=== PATIENT | female | born 1955 | race Caucasian/White ===

== ENCOUNTER 2017-05-24 03:54 | Inpatient (IN) | payer MEDICARE, MEDICAID ==
[~2017-05-24] VITALS: Ht 167.6 cm; Wt 65.8 kg
[~2017-05-24 03:54] MED LIST: ACET325T38 PO; FOLI-88 PO; HCT25T; HYDR50CA; MULT-608; NAPR-243 PO; POTA10CA16; TRM50T PO; VNL37.5T
[2017-05-24] MEDS ORDERED: NS IV 500 ML 500 ML IV ONE (04:08)
--- NOTE | 2017-05-24 04:08 | ED Neurological Problem ---
General Stated Complaint: GRAND MAL SEIZURE Source: family, EMS, [facility] records Exam Limitations: clinical condition History of Present Illness Time seen by provider: 04:01 Initial Comments Patient presents to ER by EMS from this [facility] with a complaint of having a grand mal seizure according to staff. Nothing out of the ordinary they've noticed nor has the daily. They feel that her bowel movements of been regular. Patient is unable to give any history as she is nonverbal in the late stages of dementia. No vomiting or diarrhea. Appetite has been typical for her. Allergies and Home Medications Allergies Coded Allergies: Penicillins (Verified Allergy, Unknown, 07/30/07) Home Medications Acetaminophen 325 Mg Tablet, 650 MG PO DAILY PRN for PAIN, (Reported) Folic Acid/Multivit-Min/Lutein 1 Each Tab.chew, 1 TAB PO BID, (Reported) Constitutional: see HPI (unavailable to obtain a review of systems given her end-stage dementia.) Respiratory: No cough, No short of breath Cardiovascular: No edema, No syncope Gastrointestinal: No constipation, No diarrhea, No vomiting Psychiatric/Neurological: Cognitive Dysfunction, Other (no history of seizures) Past Amltlef-Yeroko-Xtllez Hx Patient Social History Alcohol Use: Denies Use Recreational Drug Use: No Smoking Status: Former Smoker Recent Foreign Travel: No Contact w/Someone Who Travel: No Surgeries HX Surgeries: Yes (Catatact sx) Surgeries: Eye Surgery Respiratory Hx Respiratory Disorders: No Cardiovascular Hx Cardiac Disorders: Yes Neurological Hx Neurological Disorders: Yes (Alzheimer's) Reproductive System Hx Reproductive Disorders: No Genitourinary Hx Genitourinary Disorders: No Gastrointestinal Hx Gastrointestinal Disorders: No Musculoskeletal Hx Musculoskeletal Disorders: No Endocrine Hx Endocrine Disorders: No HEENT HX ENT Disorders: Yes HEENT Disorders: Cataract Loss of Vision: Denies Hearing Impairment: Denies Cancer Hx Cancer: No Psychosocial Hx Psychiatric Problems: No Integumentary HX Skin/Integumentary Disorder: No Blood Transfusions Hx Blood Disorders: No Physical Exam Vital Signs Vital Sign - Last 12Hours 05/24/17 03:55 Temp 97.1 Pulse 62 Resp 18 B/P (MAP) 167/97 Pulse Ox 97 O2 Delivery Room Air Capillary Refill : General Appearance: WD/WN, mild distress HEENT: PERRL/EOMI, pharynx normal (mildly dry) Neck: supple, normal inspection Respiratory: chest non-tender, lungs clear, normal breath sounds Cardiovascular: normal peripheral pulses, regular rate, rhythm Peripheral Pulses: 2+ Dorsalis Pedis (R), 2+ Left Dors-Pedis (L) Gastrointestinal: normal bowel sounds (on the hypoactive side), distended, guarding, tenderness Extremities: non-tender, no pedal edema, normal capillary refill Neurologic/Psychiatric: alert, disoriented x 3 Crainal Nerves: No normal speech (only murmurs at baseline.), PERRL Skin: normal color, warm/dry Focused Exam Lactic Acid Level Laboratory Tests Test 05/24/17 04:00 Lactic Acid Level 2.33 MMOL/L (0.50-2.00) *H Progress/Results/Core Measures Results/Orders Lab Results Laboratory Tests Test 05/24/17 04:00 05/24/17 04:10 Range/Units White Blood Count 6.5 4.3-11.0 10^3/uL Red Blood Count 3.93 L 4.35-5.85 10^6/uL Hemoglobin 12.9 11.5-16.0 G/DL Hematocrit 40 35-52 % Mean Corpuscular Volume 102 H 80-99 FL Mean Corpuscular Hemoglobin 33 25-34 PG Mean Corpuscular Hemoglobin Concent 32 32-36 G/DL Red Cell Distribution Width 12.9 10.0-14.5 % Platelet Count 165 130-400 10^3/uL Mean Platelet Volume 12.6 H 7.4-10.4 FL Neutrophils (%) (Auto) 47 42-75 % Lymphocytes (%) (Auto) 36 12-44 % Monocytes (%) (Auto) 10 0-12 % Eosinophils (%) (Auto) 6 0-10 % Basophils (%) (Auto) 1 0-10 % Neutrophils # (Auto) 3.1 1.8-7.8 X 10^3 Lymphocytes # (Auto) 2.4 1.0-4.0 X 10^3 Monocytes # (Auto) 0.6 0.0-1.0 X 10^3 Eosinophils # (Auto) 0.4 H 0.0-0.3 10^3/uL Basophils # (Auto) 0.1 0.0-0.1 10^3/uL Prothrombin Time 12.5 12.2-14.7 SEC INR Comment 1.0 0.8-1.4 Activated Partial Thromboplast Time 23 L 24-35 SEC Sodium Level 141 135-145 MMOL/L Potassium Level 3.6 3.6-5.0 MMOL/L Chloride Level 109 H 98-107 MMOL/L Carbon Dioxide Level 18 L 21-32 MMOL/L Anion Gap 14 5-14 MMOL/L Blood Urea Nitrogen 15 7-18 MG/DL Creatinine 0.82 0.60-1.30 MG/DL Estimat Glomerular Filtration Rate > 60 BUN/Creatinine Ratio 18 Glucose Level 111 H 70-105 MG/DL Lactic Acid Level 2.33 *H 0.50-2.00 MMOL/L Calcium Level 8.2 L 8.5-10.1 MG/DL Phosphorus Level 3.2 2.3-4.7 MG/DL Magnesium Level 2.1 1.8-2.4 MG/DL Total Bilirubin 0.3 0.1-1.0 MG/DL Aspartate Amino Transf (AST/SGOT) 14 5-34 U/L Alanine Aminotransferase (ALT/SGPT) 14 0-55 U/L Alkaline Phosphatase 97 40-136 U/L Ammonia 31 11-32 UMOL/L Troponin I < 0.30 <0.30 NG/ML C-Reactive Protein High Sensitivity 0.20 0.00-0.50 MG/DL Total Protein 6.5 6.4-8.2 GM/DL Albumin 3.5 3.2-4.5 GM/DL Urine Color YELLOW Urine Clarity CLEAR Urine pH 7 5-9 Urine Specific [place] 1.010 L 1.016-1.022 Urine Protein NEGATIVE NEGATIVE Urine Glucose (UA) NEGATIVE NEGATIVE Urine Ketones NEGATIVE NEGATIVE Urine Nitrite NEGATIVE NEGATIVE Urine Bilirubin NEGATIVE NEGATIVE Urine Urobilinogen NORMAL NORMAL MG/DL Urine Leukocyte Esterase NEGATIVE NEGATIVE Urine RBC (Auto) NEGATIVE NEGATIVE Urine RBC NONE /HPF Urine WBC NONE /HPF Urine Squamous Epithelial Cells RARE /HPF Urine Crystals NONE /LPF Urine Bacteria NEGATIVE /HPF Urine Casts PRESENT /LPF Urine Hyaline Casts RARE /LPF Urine Mucus NEGATIVE /LPF Urine Culture Indicated NO My Orders Orders - VALENT[facility]N [address] Ct Abdomen/Pelvis Wo (05/24/17 04:08) Saline Lock/Iv-Start (05/24/17 04:08) Ammonia (05/24/17 04:08) Cbc With Automated Diff (05/24/17 04:08) Comprehensive Metabolic Panel (05/24/17 04:08) Hs C Reactive Protein (05/24/17 04:08) Lactic Acid Analyzer (05/24/17 04:08) Magnesium (05/24/17 04:08) Troponin I (05/24/17 04:08) Ua Culture If Indicated (05/24/17 04:08) Phosphorus (05/24/17 04:08) Chest 1 View, Ap/Pa Only (05/24/17 04:08) Blood Culture (05/24/17 04:08) Sputum Culture (05/24/17 04:08) Protime With Inr (05/24/17 04:08) Partial Thromboplastin Time (05/24/17 04:08) O2 (05/24/17 04:08) Saline Lock/Iv-Start (05/24/17 04:08) Vital Signs Adult Sepsis Patie Q1HR (05/24/17 04:08) Remove Rings In Anticipation O (05/24/17 04:08) Ns Iv 500 Ml (Sodium Chloride 0.9%) (05/24/17 04:08) Ns Iv 1000 Ml (Sodium Chloride 0.9%) (05/24/17 04:44) Fentanyl Injection (Sublimaze Injection (05/24/17 05:00) Ondansetron Injection (Zofran Injectio (05/24/17 05:00) Vancomycin 1 Gm Iv (1x Dose) (05/24/17 05:30) Metronidazole 500 Mg Iv (1x Do (05/24/17 05:30) Medications Given in ED Current Medications Medications Dose Ordered Sig/Amy Route Start Time Stop Time Status Last Admin Dose Admin Fentanyl Citrate 25 mcg ONCE ONCE IVP 05/24/17 05:00 05/24/17 05:02 DC 05/24/17 05:10 25 MCG Ondansetron HCl 4 mg ONCE ONCE IVP 05/24/17 05:00 05/24/17 05:02 DC 05/24/17 05:11 4 MG Sodium Chloride 500 ml @ 0 mls/hr Q0M ONCE IV 05/24/17 04:08 05/24/17 04:11 DC 05/24/17 04:40 500 MLS/HR Sodium Chloride 1,000 ml @ 0 mls/hr Q0M ONCE IV 05/24/17 04:44 05/24/17 04:46 DC 05/24/17 04:56 1,000 MLS/HR Vital Signs/I&O Vital Sign - Last 12Hours 05/24/17 03:55 Temp 97.1 Pulse 62 Resp 18 B/P (MAP) 167/97 Pulse Ox 97 O2 Delivery Room Air Progress Note : Time: 04:52 Progress Note New-onset of convulsions and a tender guarding mildly distended abdomen. We will obtain sepsis workup to include urine and a CT of the abdomen. Diagnostic Imaging Diagonstic Imaging: Xray Plain Films/CT/US/NM/MRI: chest Comments No acute cardiopulmonary processes. Reviewed: Reviewed by Me Diagonstic Imaging: CT Plain Films/CT/US/NM/MRI: abdomen (pelvis without) Comments Large fecal load within the rectum. You nodular opacities in lung bases may reflect aspiration, possibly chronic. Cholelithiasis. Liver kidney pancreas spleen are unremarkable. No evidence of bowel obstruction or colitis and no free fluid or free air. Reviewed: Reviewed [place] Study, Reviewed by Me Departure Communication Time/Spoke to Admitting Phy: 05:[address] Johnson; discussed IV antibiotic choice and he agrees and asks that I would consult pharmacy in the morning to 8 us an antibiotic choice. He also asked that we consult general surgery in the morning. Follow the lactate. Impression Impression: Primary Impression: Sepsis Qualified Codes: A41.9 - Sepsis, unspecified organism Additional Impressions: Seizures Aspiration pneumonia Qualified Codes: J69.0 - Pneumonitis due to inhalation of food and vomit Cholelithiasis Qualified Codes: K80.20 - Calculus of gallbladder without cholecystitis without obstruction Disposition: ADMITTED INPATIENT Condition: Stable Decision to Admit Reason: Admit from ER (General) Decision to Admit/Date: May 24, 2017 Time/Decision to Admit Time: 05:47 Departure-Patient Inst. Referrals: RHONDA JOHNSON DO (PCP/Family) Primary Care Physician Copy Copies To 1: RHONDA JOHNSON TITUS J May 24, 2017 04:08
[2017-05-24 04:20] LABS: BASOPHILS # (AUTO) 0.1 10^3/uL (0.0-0.1); BASOPHILS % (AUTO) 1 % (0-10); EOSINOPHILS # (AUTO) 0.4 10^3/uL (0.0-0.3); EOSINOPHILS % (AUTO) 6 % (0-10); LYMPHOCYTES # (AUTO) 2.4 X 10^3 (1.0-4.0); LYMPHOCYTES % (AUTO) 36 % (12-44); MEAN CORPUSCULAR HEMOGLOBIN 33 PG (25-34); MEAN CORPUSCULAR HGB CONC 32 G/DL (32-36); MEAN CORPUSCULAR VOLUME 102 FL (80-99); MEAN PLATELET VOLUME 12.6 FL (7.4-10.4); MONOCYTES # (AUTO) 0.6 X 10^3 (0.0-1.0); MONOCYTES % (AUTO) 10 % (0-12); NEUTROPHILS # (AUTO) 3.1 X 10^3 (1.8-7.8); NEUTROPHILS % (AUTO) 47 % (42-75); PLATELET COUNT 165 10^3/uL (130-400); RED BLOOD COUNT 3.93 10^6/uL (4.35-5.85); RED CELL DISTRIBUTION WIDTH 12.9 % (10.0-14.5); WHITE BLOOD COUNT 6.5 10^3/uL (4.3-11.0)
[2017-05-24 04:34] LABS: BILIRUBIN,URINE NEGATIVE (NEGATIVE); KETONES,URINE NEGATIVE (NEGATIVE); LEUKOCYTE ESTERASE ,URINE NEGATIVE (NEGATIVE); NITRITE,URINE NEGATIVE (NEGATIVE); PH,URINE 7 (5-9); PROTEIN,URINE NEGATIVE (NEGATIVE); UROBILINOGEN,URINE NORMAL (NORMAL)
[2017-05-24 04:35] LABS: PROTHROMBIN TIME PATIENT 12.5 SEC (12.2-14.7)
[2017-05-24] MEDS ORDERED: NS IV 1000 ML 1,000 ML IV ONE (04:44)
[2017-05-24 04:46] LABS: ALANINE AMINOTRANSFERASE 14 U/L (0-55); ALBUMIN 3.5 GM/DL (3.2-4.5); AMMONIA 31 UMOL/L (11-32); ANION GAP 14 MMOL/L (5-14); ASPARTATE AMINO TRANSFERASE 14 U/L (5-34); BILIRUBIN,TOTAL 0.3 MG/DL (0.1-1.0); BLOOD UREA NITROGEN 15 MG/DL (7-18); BUN/CREATININE RATIO 18; CALCIUM 8.2 MG/DL (8.5-10.1); CARBON DIOXIDE 18 MMOL/L (21-32); CHLORIDE 109 MMOL/L (98-107); CREATININE SERUM 0.82 MG/DL (0.60-1.30); GFR ESTIMATED > 60; GLUCOSE 111 MG/DL (70-105); MAGNESIUM 2.1 MG/DL (1.8-2.4); PHOSPHORUS 3.2 MG/DL (2.3-4.7); POTASSIUM 3.6 MMOL/L (3.6-5.0); SODIUM 141 MMOL/L (135-145); TOTAL PROTEIN 6.5 GM/DL (6.4-8.2)
[2017-05-24 04:49] LABS: HYALINE CASTS, URINE RARE /LPF; SQUAMOUS EPITHELIAL CELL,UR RARE /HPF
[2017-05-24 04:54] LABS: TROPONIN I < 0.30 NG/ML (<0.30)
[2017-05-24] MEDS ORDERED: ONDANSETRON 4 MG/2 ML (SDV) Z0FRAN IVP ONE ×2 (05:00→06:15)
[2017-05-24] MEDS ORDERED: fentaNYL INJECTION 100 MCG/2 ML AMP IVP ONE (05:00)
[2017-05-24] MEDS ORDERED: VANCOMYCIN INJECTION 1,000 MG in NS (IVPB) 250 ML IV ONE (05:30)
[2017-05-24] MEDS ORDERED: metroNIDAZOLE 500MG/100ML IVPB 100 ML IV ONE (05:30)
[2017-05-24 06:55] VITALS: BP 165/97
--- NOTE | 2017-05-24 07:00 | Diagnostic Imaging Report ---
PROCEDURE: CT abdomen and pelvis without contrast. TECHNIQUE: Multiple contiguous axial images were obtained through the abdomen and pelvis without the use of intravenous contrast. INDICATION: Seizure. Abdomen firm and tender to palpation. COMPARISON: None FINDINGS: Included views of the lung bases show multiple patchy nodular densities bilaterally. Reference area on the right measures approximately 8 mm (image 3, series 2). There is hypodense appearance to the intraluminal contents of the cardiac chambers suggestive of anemia. CT abdomen: Normal appendix is identified. Small bowel loops are nondistended. Large amount of stool is noted within the rectum. Stool ball measures approximately 7.6 x 7.8 cm in axial dimension. There is cholelithiasis. The liver, kidneys, adrenal glands, spleen, and pancreas have an unremarkable noncontrast CT appearance. There is no loculated fluid collection, free fluid, nor free air within the abdomen. No abnormal mesenteric or retroperitoneal adenopathy is seen. Bony structures show no acute abnormalities. CT pelvis: Thomas catheter is present within the urinary bladder. Urinary bladder is decompressed. Again, there is a large amount of stool within the rectum. There is no loculated fluid collection, free fluid, nor free air within the pelvis. No abnormal lymph nodes are seen. Bony structures show no acute abnormalities IMPRESSION: 1. Large amount of stool within the rectum. Please correlate for underlying impaction. 2. Cholelithiasis 3. Multiple nodular opacities within the included portions of the lung bases. Findings could be on the basis of multifocal airspace disease/pneumonia. Soft tissue nodularity cannot be excluded. Dedicated evaluation with CT chest is recommended. 4. I agree with Nedk report. Dictated by: Dictated on workstation # [id number]
[2017-05-24] MEDS ORDERED: ONDANSETRON 4 MG/2 ML (SDV) Z0FRAN IV PRN (07:15)
[2017-05-24] MEDS ORDERED: CATHETER FLUSH 10 ML SYR IV PRN (07:15)
[2017-05-24] MEDS ORDERED: ACETAMINOPHEN 500 MG TAB (TYLENOL) PO PRN (07:15)
--- NOTE | 2017-05-24 07:28 | Diagnostic Imaging Report ---
Portable upright radiograph of the chest. INDICATION: Possible seizure. Dementia. The lungs are hyperinflated. The interstitium is prominent similar to x-ray of 07/26/2015, likely chronic. The heart size is mildly enlarged. No effusion or pneumothorax. Mediastinum and ailyn appear unremarkable. IMPRESSION: COPD. Cardiomegaly without madhuri pulmonary edema. Dictated by: Dictated on workstation # [id number]
[2017-05-24 07:50] VITALS: BP 165/97
[2017-05-24] MEDS: metroNIDAZOLE 500 MG/100 ML IVPB (PRE-MIX) IV SCH ×2 (08:11→20:00)
--- NOTE | 2017-05-24 08:11 | History & Physicial ---
History of Present Illness History of Present Illness Reason for visit/HPI [facility]. Patient had a first time seizure. Patient sent out to the emergency room. Abdomen distended. Serum lactic acid at 2.4. Lower lungs show nodularity. CAT scan shows gallstones. Patient has constipation. Patient unable to give any history due to her Alzheimer's. History from . Previous surgery cataract. Family history mother asthma denies TB, diabetes, heart disease, lung disease, or cancer. Date of Admission May 24, 2017 at 05:45 Time Seen by Provider: 08:05 I consulted on this patient on 05/24/17 08:06 Attending Physician Manjeet Johnson DO Admitting Physician Manjeet Johnson DO Consult Allergies and Home Medications Allergies Coded Allergies: Penicillins (Verified Allergy, Unknown, 07/30/07) Home Medications Acetaminophen 325 Mg Tablet, 650 MG PO DAILY PRN for PAIN, (Reported) Folic Acid/Multivit-Min/Lutein 1 Each Tab.chew, 1 TAB PO BID, (Reported) Past Oxjeybf-Inksrp-Hoidnn Hx Patient Social History Marrital Status: Employed/Student: unemployed Alcohol Use: Denies Use Recreational Drug Use: No Smoking Status: Former Smoker Recent Foreign Travel: No Contact w/other who traveled: No Recent Hopitalizations: No Recent Infectious Disease Expo: No Surgeries HX Surgeries: Yes (Catatact sx) Surgeries: Eye Surgery Respiratory Hx Respiratory Disorders: No Cardiovascular Hx Cardiovascular Disorders: Yes Neurological Hx Neurological Disorders: Yes (Alzheimer's) Neurological Disorders: Dementia Reproductive System Hx Reproductive Disorders: No Genitourinary Hx Genitourinary Disorders: No Gastrointestinal Hx Gastrointestinal Disorders: No Musculoskeletal Hx Musculoskeletal Disorders: No Endocrine Hx Endocrine Disorders: No HEENT HX ENT Disorders: Yes HEENT Disorders: Cataract Loss of Vision: Denies Hearing Impairment: Denies Cancer Hx Cancer: No Psychosocial Hx Psychiatric Problems: No Integumentary HX Skin/Integumentary Disorder: No Blood Transfusions Hx Blood Disorders: No Constitutional: no symptoms reported EENTM: no symptoms reported Respiratory: no symptoms reported, other (abnormal CAT scan) Cardiovascular: no symptoms reported Gastrointestinal: constipation, other (distended) Genitourinary: no symptoms reported Psychiatric/Neurological: Seizure, Other (Alzheimer) Physical Exam Vital Signs Vital Sign - Last 12Hours 05/24/17 03:55 Temp 97.1 Pulse 62 Resp 18 B/P (MAP) 167/97 Pulse Ox 97 O2 Delivery Room Air Capillary Refill : Less Than 3 Seconds General Appearance: No Apparent Distress, WD/WN Eyes: Bilateral Eye Normal Inspection HEENT: TMs Normal, Normal ENT Inspection Neck: Full Range of Motion, Normal Inspection, Non Tender Respiratory: Chest Non Tender, Lungs Clear, Normal Breath Sounds, No Accessory Muscle Use, No Respiratory Distress Cardiovascular: Regular Rate, Rhythm, No Murmur Gastrointestinal: Non Tender, Soft, Other (2 stools this a.m.) Assessment/Plan Assessment and Plan new-onset seizure. Constipation. Pneumonia. Gallstones. Elevated lactic acid. Alzheimer's disease. Problems: MANJEET JOHNSON DO May 24, 2017 08:11
[2017-05-24] MEDS: NS IV 1000 ML 1,000 ML IV SCH ×2 (08:23→22:42)
[2017-05-24] MEDS ORDERED: SERT50TA9 PO ×2 (08:44)
[2017-05-24] MEDS ORDERED: MAGN400O7 PO ×2 (08:44)
[2017-05-24] MEDS ORDERED: BISA10SU58 RC ×2 (08:44)
[2017-05-24] MEDS ORDERED: POTA20LI PO ×2 (08:44)
[2017-05-24] MEDS: LEVOFLOXACIN 750 MG/D5W 150 ML (PRE-MIX) IV SCH ×2 (10:22→12:01)
--- NOTE | 2017-05-24 10:34 | Diagnostic Imaging Report ---
PROCEDURE: US Gallbladder. TECHNIQUE: Multiple real-time grayscale images were obtained over the right upper quadrant in various projections. Indication: Right upper quadrant pain, known cholelithiasis. Comparison: CT of the abdomen, same date. Discussion: Sonographic evaluation of the right upper quadrant was performed. The liver appears normal in echotexture and size. No hepatic mass identified. There is a large 3.4 cm stone within the gallbladder lumen. There is no gallbladder wall thickening or pericholecystic fluid. Common bile duct and pancreas are obscured due to overlying bowel gas. No intrahepatic biliary duct dilatation identified. The right kidney appears normal in echotexture and size without evidence of hydronephrosis or renal mass. The right kidney measures 9.5 cm. There is no ascites or abnormal bowel loops identified. No sonographic Frost sign was reported. Impression: 1. Cholelithiasis. Dictated by: Dictated on workstation # [id number]
[2017-05-24 12:14] VITALS: BP 136/86
[2017-05-24] MEDS ORDERED: NS 100 ML (IVPB) BAG IV ONE (12:15)
[2017-05-24] MEDS ORDERED: IOHEXOL 350 MG/ML 100 ML (OMNIPAQUE 350) VIAL IV ONE (12:15)
[2017-05-24] MEDS ORDERED: DIAZEPAM INJ 10 MG/2 ML (VALIUM) SYR IV NR (12:45)
--- NOTE | 2017-05-24 13:54 | Diagnostic Imaging Report ---
PROCEDURE: CT chest with contrast only. TECHNIQUE: Multiple contiguous axial images were obtained through the chest after administration of intravenous contrast. INDICATION: Abnormal chest x-ray. FINDINGS: There is respiratory motion limiting detail due to patient's inability to follow instructions. There are infiltrates present bilaterally, most prominently in the right upper lobe though present in the lower lobes as well. No definite pulmonary nodules identified. Good opacification of the aorta and pulmonary arteries. No evidence of aortic aneurysm. No mediastinal or hilar adenopathy of pathologic size. No pleural effusions or pericardial effusions. IMPRESSION: Limited CT scan due to motion. There are infiltrates present, most prominent in the right upper lobe. No definite nodules demonstrated. Dictated by: Dictated on workstation # [id number]
--- NOTE | 2017-05-24 14:00 | Diagnostic Imaging Report ---
CLINICAL INDICATION: Patient had a seizure last night. TECHNIQUE: An axial CT scan of the brain was performed without IV contrast. COMPARISON: Head CT without IV contrast dated 07/26/2015. FINDINGS: There is no CT evidence of acute cerebral infarct, intracranial hemorrhage, or gross mass effect. There is interval progression of patchy and confluent low-attenuation white matter changes seen throughout both cerebral hemispheres. There is diffuse brain parenchymal volume loss with the temporal lobes affected the most which has not significantly changed. There is normal mac/white matter distinction. There is no significant midline shift or herniation. There is no evidence of hydrocephalus. The basal cisterns are unremarkable. The skull, extracranial soft tissue, and orbits are unremarkable. There is a small to moderate amount of mucosal thickening in the sphenoid sinus. IMPRESSION: 1. There is no definite CT evidence of interval acute cerebral infarction, intracranial hemorrhage, or mass seen. Given the diffuse low attenuation changes throughout the brain parenchyma which can obscure more subtle findings, if there is clinical concern for acute cerebral infarction, MRI of the brain would better evaluate. 2. There is progression of patchy confluent low-attenuation white matter changes throughout both cerebral hemispheres which is suspected to represent progression of chronic small vessel ischemic disease and leukoaraiosis. 3. Sphenoid sinus disease. Dictated by: Dictated on workstation # [id number]
--- NOTE | 2017-05-24 14:25 | Consultation ---
History of Present Illness History of Present Illness Patient Consulted On(ricarda/time) 05/24/17 14:23 Date Seen by Provider: May 24, 2017 Time Seen by Provider: 14:23 Reason for Visit: gallstone History of Present Illness This lady is a resident at a local jail due to Alzheimer's disease.She developed new onset of seizures this morning and reported abdominal pain. Evaluation has confirmed a large gallstone. CT of the brain is negative for any acute events. In addition, CT of the abdomen shows severe constipation, probably adding to her abdominal pain Allergies and Home Medications Allergies Coded Allergies: Penicillins (Verified Allergy, Unknown, 07/30/07) Home Medications Bisacodyl 10 Mg Supp.rect, 10 MG RC DAILY PRN for CONSTIPATION-4TH LINE, ( Reported) Magnesium Hydroxide 400 Mg/5 Ml Oral.susp, 30 ML PO DAILY PRN for CONSTIPATION- 7TH LINE, (Reported) Potassium Chloride 20 Meq/15 Ml Liquid, 10 MEQ PO DAILY, (Reported) 7.5ML OF 20MEQ/15ML Sertraline HCl 50 Mg Tablet, 50 MG PO HS, (Reported) Past Annmtwb-Jizkog-Uzahbj Hx Patient Social History Alcohol Use: Denies Use Recreational Drug Use: No Smoking Status: Never a Smoker Recent Foreign Travel: No Contact w/Someone Who Travel: No Recent Infectious Disease Expo: No Recent Hopitalizations: No Physical Abuse Screen: No Sexual Abuse: No Seasonal Allergies Seasonal Allergies: No Surgeries HX Surgeries: Yes (Catatact sx) Surgeries: Eye Surgery Respiratory Hx Respiratory Disorders: No Cardiovascular Hx Cardiac Disorders: Yes Neurological Hx Neurological Disorders: Yes (Alzheimer's) Neurological Disorders: Dementia Reproductive System Hx Reproductive Disorders: No Genitourinary Hx Genitourinary Disorders: No Gastrointestinal Hx Gastrointestinal Disorders: No Musculoskeletal Hx Musculoskeletal Disorders: No Endocrine Hx Endocrine Disorders: No HEENT HX ENT Disorders: Yes HEENT Disorders: Cataract Loss of Vision: Denies Hearing Impairment: Denies Cancer Hx Cancer: No Psychosocial Hx Psychiatric Problems: No Integumentary HX Skin/Integumentary Disorder: No Blood Transfusions Hx Blood Disorders: No Family Medical History Family Medial History: Patient reports no known family medical history. Physical Exam-General Problems Physical Exam Vital Signs Vital Sign - Last 12Hours 05/24/17 03:55 Temp 97.1 Pulse 62 Resp 18 B/P (MAP) 167/97 Pulse Ox 97 O2 Delivery Room Air Capillary Refill : Less Than 3 Seconds General Appearance: mild distress HEENT: normal ENT inspection Neck: non-tender Respiratory: lungs clear Cardiovascular: normal peripheral pulses, regular rate, rhythm Gastrointestinal: non tender, soft Assessment/Plan Assessment/Plan Admission Diagnosis/Plan lady with Alzheimer's disease. Admitted with gallstone and new onset of seizure. Evaluation is ongoing regarding seizure activity. With regard to gallstone, I have discussed robotic-assisted cholecystectomy. Provisionally, this is scheduled for Saturday the . Clinical Quality Measures DVT/VTE Risk/Contraindication: Risk Factor Score Per Nursin RFS Level Per Nursing on Admit: 4+=Very High ALYSSA FUENTES MD May 24, 2017 14:25
--- NOTE | 2017-05-24 14:28 | Progress Note-Pre Operative ---
Pre-Operative Progress Note H&P Reviewed The H&P was reviewed, patient examined and no changes noted. Date Seen by Provider: May 24, 2017 Time Seen by Provider: : Date H&P Reviewed: May 24, 2017 Time H&P Reviewed: : Pre-Operative Diagnosis: gallstone ALYSSA FUENTES MD May 24, 2017 14:28
[2017-05-24] MEDS ORDERED: MAGNESIUM CITRATE 300 ML BTL PO NR (14:30)
[2017-05-24 16:35] VITALS: BP 139/85
[2017-05-24] MEDS: ENOXAPARIN 40 MG/0.4 ML (LOVENOX) SYR SC SCH (18:32)
[2017-05-24 19:50] VITALS: BP 126/77
[2017-05-24 20:15] VITALS: BP 135/93
[2017-05-25 00:30] VITALS: BP 141/95
[2017-05-25 04:00] VITALS: BP 149/96
[2017-05-25 06:16] LABS: BASOPHILS % (AUTO) 1 % (0-10); EOSINOPHILS # (AUTO) 0.2 10^3/uL (0.0-0.3); EOSINOPHILS % (AUTO) 2 % (0-10); LYMPHOCYTES # (AUTO) 1.8 X 10^3 (1.0-4.0); LYMPHOCYTES % (AUTO) 27 % (12-44); MEAN CORPUSCULAR HEMOGLOBIN 33 PG (25-34); MEAN CORPUSCULAR HGB CONC 32 G/DL (32-36); MEAN CORPUSCULAR VOLUME 103 FL (80-99); MEAN PLATELET VOLUME 12.1 FL (7.4-10.4); MONOCYTES # (AUTO) 0.6 X 10^3 (0.0-1.0); MONOCYTES % (AUTO) 9 % (0-12); NEUTROPHILS # (AUTO) 4.1 X 10^3 (1.8-7.8); NEUTROPHILS % (AUTO) 62 % (42-75); PLATELET COUNT 166 10^3/uL (130-400); RED BLOOD COUNT 3.83 10^6/uL (4.35-5.85); WHITE BLOOD COUNT 6.7 10^3/uL (4.3-11.0)
[2017-05-25 06:39] LABS: ALANINE AMINOTRANSFERASE 11 U/L (0-55); ALBUMIN 3.3 GM/DL (3.2-4.5); ANION GAP 9 MMOL/L (5-14); ASPARTATE AMINO TRANSFERASE 13 U/L (5-34); BILIRUBIN,TOTAL 0.4 MG/DL (0.1-1.0); BLOOD UREA NITROGEN 12 MG/DL (7-18); BUN/CREATININE RATIO 15; CALCIUM 8.5 MG/DL (8.5-10.1); CARBON DIOXIDE 24 MMOL/L (21-32); CHLORIDE 109 MMOL/L (98-107); GFR ESTIMATED > 60; GLUCOSE 100 MG/DL (70-105); POTASSIUM 3.6 MMOL/L (3.6-5.0); SODIUM 142 MMOL/L (135-145); TOTAL PROTEIN 6.2 GM/DL (6.4-8.2)
[2017-05-25 08:00] VITALS: BP 189/96
[2017-05-25] MEDS: metroNIDAZOLE 500 MG/100 ML IVPB (PRE-MIX) IV SCH ×2 (08:15→21:29)
[2017-05-25] MEDS: LEVOFLOXACIN 750 MG/D5W 150 ML (PRE-MIX) IV SCH (09:41)
--- NOTE | 2017-05-25 10:27 | Progress Note (SOAP) ---
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 SHE HAS DIAGNOSIS OF CHOLECYSTITIS, NAUSEA AND VOMITING. SHE IS DEMENTED AND HER FAMILY ANSWERS QUESTIONS FOR HER TODAY. SHE STARTED VOMITING WHILE I WAS IN THE ROOM WITH HER. HER REPORTS THAT HE FED HER SOME EGGS THIS MORNING. Review of Systems General: Fatigue HEENT: No Head Aches Pulmonary: No Dyspnea, No Cough Cardiovascular: No: Chest Pain Gastrointestinal: Nausea, Vomiting Neurological: Confusion, Weakness Objective Exam Vital Signs Date Time Temp Pulse Resp B/P (MAP) Pulse Ox O2 Delivery O2 Flow Rate FiO2 05/25/17 08:00 98.2 70 16 189/96 95 Room Air 05/25/17 04:00 96.4 89 17 149/96 95 Room Air 05/25/17 00:30 98.4 86 18 141/95 96 Room Air 05/24/17 21:00 Room Air 05/24/17 20:15 99.9 96 20 135/93 95 Room Air 05/24/17 19:15 Room Air 05/24/17 16:35 97.5 86 20 139/85 96 Room Air 05/24/17 12:14 98.7 71 18 136/86 96 Room Air I & O 05/25/17 07:00 Intake Total 510 ml Output Total 2450 ml Balance -1940 ml Capillary Refill : Less Than 3 Seconds General Appearance: WD/WN, Moderate Distress HEENT: PERRL/EOMI Neck: Full Range of Motion, Supple Respiratory: Chest Non Tender, Lungs Clear, Normal Breath Sounds Cardiovascular: Regular Rate, Rhythm Gastrointestinal: abnormal bowel sounds (DECREASED), tenderness Neurologic/Psychiatric: Alert, Disoriented x3 Skin: Rash (ACROSS CHEST AND ABDOMEN AND UPPER ARMS) Results Lab Laboratory Tests 05/25/17 05:50: White Blood Count 6.7, Red Blood Count 3.83L, Hemoglobin 12.6, Hematocrit 40, Mean Corpuscular Volume 103H, Mean Corpuscular Hemoglobin 33, Mean Corpuscular Hemoglobin Concent 32, Red Cell Distribution Width 13.0, Platelet Count 166, Mean Platelet Volume 12.1H, Neutrophils (%) (Auto) 62, Lymphocytes (%) (Auto) 27 , Monocytes (%) (Auto) 9, Eosinophils (%) (Auto) 2, Basophils (%) (Auto) 1, Neutrophils # (Auto) 4.1, Lymphocytes # (Auto) 1.8, Monocytes # (Auto) 0.6, Eosinophils # (Auto) 0.2, Basophils # (Auto) 0.0, Sodium Level 142, Potassium Level 3.6, Chloride Level 109H, Carbon Dioxide Level 24, Anion Gap 9, Blood Urea Nitrogen 12, Creatinine 0.80, Estimat Glomerular Filtration Rate > 60, BUN/ Creatinine Ratio 15, Glucose Level 100, Lactic Acid Level 0.63, Calcium Level 8.5, Total Bilirubin 0.4, Aspartate Amino Transf (AST/SGOT) 13, Alanine Aminotransferase (ALT/SGPT) 11, Alkaline Phosphatase 91, Total Protein 6.2L, Albumin 3.3 Microbiology 05/24/17 Blood Culture - Preliminary, Resulted No growth Assessment/Plan Assessment/Plan Assess & Plan/Chief Complaint PNEUMONIA LACTIC ACIDOSIS SEIZURE CONSTIPATION ACUTE CHOLELITHIASIS ABDOMINAL PAIN DEMENTIA - EARLY ONSET NAUSEA AND EMESIS RASH - ALLERGIC REACTION PNEUMONIA - ON CEFEPIME - SUSPECT HER PNEUMONIA MAY BE MORE ATELECTATIC VERSUS ACTUAL PNEUMONIA - HER IMAGING IS DIFFICULT TO READ DUE TO HER INABILITY TO STAY STILL. LACTIC ACIDOSIS - RESOLVED SEIZURE - DUE TO FEVER CONSTIPATION - - PT HAD BOWEL MOVEMENT. ACUTE CHOLELITHIASIS - PLANNING ON SURGERY SATURDAY - WILL MAKE HER NPO EXCEPT ICE CHIPS DUE TO HER NAUSEA WITH FOOD. DEMENTIA - EARLY ONSET - CONTINUE WITH SUPPORTIVE CARE AND NAMENDA. NAUSEA AND EMESIS - ZOFRAN. RASH - ALLERGIC REACTION - STOP LEVAQUIN - GIVE PEPCID, BENADRYL, STEROID X 24 HOURS. Clinical Quality Measures DVT/VTE Risk/Contraindication: Risk Factor Score Per Nursin RFS Level Per Nursing on Admit: 4+=Very High ABI HALLMAN MD May 25, 2017 10:27
[2017-05-25] MEDS ORDERED: methylPREDNISolone 125 MG (Solu-MEDROL) VIAL IM NR (11:46)
[2017-05-25] MEDS ORDERED: diphenhydrAMINE 50 MG/ML INJ (BENADRYL) IVP NR (11:46)
[2017-05-25] MEDS ORDERED: FAMOTIDINE 20MG/2ML IV (PEPCID) IVP NR (11:47)
[2017-05-25 12:00] VITALS: BP 138/82
[2017-05-25] MEDS: DIAZEPAM INJ 10 MG/2 ML (VALIUM) SYR IV PRN ×2 (13:31→22:16)
[2017-05-25] MEDS: NS IV 1000 ML 1,000 ML IV SCH (13:31)
[2017-05-25] MEDS ORDERED: MAGNESIUM CITRATE 300 ML BTL PO NR (14:30)
[2017-05-25 15:43] VITALS: BP 136/88
[2017-05-25] MEDS: ENOXAPARIN 40 MG/0.4 ML (LOVENOX) SYR SC SCH (18:45)
[2017-05-25] MEDS: methylPREDNISolone 40 MG/ML (Solu-MEDROL) VIAL IV SCH (21:29)
[2017-05-25] MEDS: CEFEPIME INJECTION 2,000 MG in NS (IVPB) 50 ML IV SCH (21:29)
[2017-05-25] MEDS: FAMOTIDINE 20MG/2ML IV (PEPCID) IVP SCH (22:13)
[2017-05-26] VITALS: BP 144/73
[2017-05-26] MEDS: methylPREDNISolone 40 MG/ML (Solu-MEDROL) VIAL IV SCH ×4 (00:29→18:46)
[2017-05-26 08:00] VITALS: BP 141/86
[2017-05-26] MEDS: NS IV 1000 ML 1,000 ML IV SCH ×2 (09:13→17:59)
[2017-05-26] MEDS: metroNIDAZOLE 500 MG/100 ML IVPB (PRE-MIX) IV SCH ×2 (09:14→19:57)
[2017-05-26] MEDS: CEFEPIME INJECTION 2,000 MG in NS (IVPB) 50 ML IV SCH ×2 (10:05→21:10)
[2017-05-26] MEDS: FAMOTIDINE 20MG/2ML IV (PEPCID) IVP SCH ×2 (10:05→21:10)
--- NOTE | 2017-05-26 10:15 | Progress Note (SOAP) ---
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 SHE IS QUITE DEMENTED AND IS UNABLE TO ANSWER QUESTIONS. SHE WAS CRYING AND PULLING UP HER LEGS, HITTING OUT AT HER AND MYSELF. Review of Systems General: No Chills, Fatigue, Malaise HEENT: No Head Aches Pulmonary: No Dyspnea, No Cough Cardiovascular: No: Chest Pain Gastrointestinal: Abdominal Pain Neurological: Confusion, Weakness Objective Exam Vital Signs Date Time Temp Pulse Resp B/P (MAP) Pulse Ox O2 Delivery O2 Flow Rate FiO2 05/26/17 00:00 97.0 65 18 144/73 96 Room Air 05/25/17 19:18 Room Air 05/25/17 15:43 97.8 66 18 136/88 96 Room Air 05/25/17 12:00 97.9 82 18 138/82 96 Room Air 05/25/17 10:56 Room Air 94 I & O 05/26/17 07:00 Intake Total 910 ml Output Total 2100 ml Balance -1190 ml Capillary Refill : Less Than 3 Seconds General Appearance: WD/WN, Mild Distress HEENT: PERRL/EOMI, Pharynx Normal Neck: Full Range of Motion, Supple Respiratory: Chest Non Tender, Lungs Clear, Normal Breath Sounds Cardiovascular: Regular Rate, Rhythm Gastrointestinal: normal bowel sounds, soft Extremity: Normal Capillary Refill, No Pedal Edema Neurologic/Psychiatric: Alert, Disoriented x3 Results Lab Microbiology 05/24/17 Blood Culture - Preliminary, Resulted No growth Assessment/Plan Assessment/Plan Assess & Plan/Chief Complaint PNEUMONIA LACTIC ACIDOSIS SEIZURE CONSTIPATION ACUTE CHOLELITHIASIS ABDOMINAL PAIN DEMENTIA - EARLY ONSET NAUSEA AND EMESIS RASH - ALLERGIC REACTION PNEUMONIA - ON CEFEPIME - SUSPECT HER PNEUMONIA MAY BE MORE ATELECTATIC VERSUS ACTUAL PNEUMONIA - HER IMAGING IS DIFFICULT TO READ DUE TO HER INABILITY TO STAY STILL. LACTIC ACIDOSIS - RESOLVED SEIZURE - DUE TO FEVER CONSTIPATION - - PT HAD BOWEL MOVEMENT. ACUTE CHOLELITHIASIS - PLANNING ON SURGERY SATURDAY - WILL MAKE HER NPO EXCEPT ICE CHIPS DUE TO HER NAUSEA WITH FOOD. DEMENTIA - EARLY ONSET - CONTINUE WITH SUPPORTIVE CARE AND NAMENDA. NAUSEA AND EMESIS - ZOFRAN. RASH - ALLERGIC REACTION - STOP LEVAQUIN - GIVE PEPCID, BENADRYL, STEROID X 24 HOURS. Clinical Quality Measures DVT/VTE Risk/Contraindication: Risk Factor Score Per Nursin RFS Level Per Nursing on Admit: 4+=Very High ABI HALLMAN MD May 26, 2017 10:15
[2017-05-26] MEDS: DIAZEPAM INJ 10 MG/2 ML (VALIUM) SYR IV PRN (11:22)
[2017-05-26] MEDS: fentaNYL INJECTION 100 MCG/2 ML AMP IVP PRN ×4 (13:22→23:16)
[2017-05-26 16:40] VITALS: BP 165/88
[2017-05-26] MEDS: ENOXAPARIN 40 MG/0.4 ML (LOVENOX) SYR SC SCH (18:46)
[2017-05-27] VITALS: BP 129/72
[2017-05-27 04:00] VITALS: BP 131/62
[2017-05-27 05:21] LABS: ALANINE AMINOTRANSFERASE 15 U/L (0-55); ALBUMIN 3.3 GM/DL (3.2-4.5); ANION GAP 9 MMOL/L (5-14); ASPARTATE AMINO TRANSFERASE 19 U/L (5-34); BILIRUBIN,TOTAL 0.4 MG/DL (0.1-1.0); BLOOD UREA NITROGEN 21 MG/DL (7-18); BUN/CREATININE RATIO 27; CALCIUM 8.5 MG/DL (8.5-10.1); CARBON DIOXIDE 20 MMOL/L (21-32); CHLORIDE 111 MMOL/L (98-107); CREATININE SERUM 0.79 MG/DL (0.60-1.30); GFR ESTIMATED > 60; GLUCOSE 139 MG/DL (70-105); POTASSIUM 3.6 MMOL/L (3.6-5.0); SODIUM 140 MMOL/L (135-145); TOTAL PROTEIN 6.1 GM/DL (6.4-8.2)
[2017-05-27 05:35] LABS: RED BLOOD COUNT 3.79 10^6/uL (4.35-5.85); RED CELL DISTRIBUTION WIDTH 13.1 % (10.0-14.5); WHITE BLOOD COUNT 15.1 10^3/uL (4.3-11.0)
[2017-05-27] MEDS: fentaNYL INJECTION 100 MCG/2 ML AMP IVP PRN ×2 (05:36→11:18)
--- NOTE | 2017-05-27 07:33 | Progress Note (SOAP) ---
Subjective Time Seen by Provider: 07:23 Subjective/Events-last exam dementia. Cholelithiasis. According to the patient is doing okay this morning. Gallbladder surgery at 1 p.m. today. Aspiration pneumonia. Seizure Objective Exam Vital Signs Date Time Temp Pulse Resp B/P (MAP) Pulse Ox O2 Delivery O2 Flow Rate FiO2 05/27/17 04:00 97.1 56 18 131/62 95 Room Air 05/27/17 00:00 97.8 60 20 129/72 96 Room Air 05/26/17 19:16 Room Air 05/26/17 16:40 99.3 95 22 165/88 95 Room Air 05/26/17 08:00 99.1 80 20 141/86 97 Room Air I & O 05/27/17 07:00 Intake Total 1020 ml Output Total 800 ml Balance 220 ml Capillary Refill : Less Than 3 Seconds General Appearance: No Apparent Distress, WD/WN HEENT: Normal ENT Inspection Neck: Full Range of Motion, Normal Inspection Respiratory: Chest Non Tender, Lungs Clear, Normal Breath Sounds, No Accessory Muscle Use, No Respiratory Distress Cardiovascular: Regular Rate, Rhythm, No Murmur Gastrointestinal: non tender, soft Results Lab Laboratory Tests 05/27/17 04:00: White Blood Count 15.1H, Red Blood Count 3.79L, Hemoglobin 12.6, Hematocrit 39, Mean Corpuscular Volume 103H, Mean Corpuscular Hemoglobin 33, Mean Corpuscular Hemoglobin Concent 32, Red Cell Distribution Width 13.1, Platelet Count 204, Mean Platelet Volume 13.0H, Sodium Level 140, Potassium Level 3.6, Chloride Level 111H, Carbon Dioxide Level 20L, Anion Gap 9, Blood Urea Nitrogen 21H, Creatinine 0.79, Estimat Glomerular Filtration Rate > 60, BUN/Creatinine Ratio 27, Glucose Level 139H, Calcium Level 8.5, Total Bilirubin 0.4, Aspartate Amino Transf (AST/SGOT) 19, Alanine Aminotransferase (ALT/SGPT) 15, Alkaline Phosphatase 79, Total Protein 6.1L, Albumin 3.3 Microbiology 05/24/17 Blood Culture - Preliminary, Resulted No growth Assessment/Plan Assessment/Plan Assess & Plan/Chief Complaint seizure. Gallstones. Dementia. Leukocytosis. Patient to have gallbladder surgery at 1 p.m. Pneumonia. Patient unable to give any history Clinical Quality Measures DVT/VTE Risk/Contraindication: Risk Factor Score Per Nursin RFS Level Per Nursing on Admit: 4+=Very High RHONDA JOHNSON DO May 27, 2017 07:33
[2017-05-27 08:00] VITALS: BP 127/75
[2017-05-27] MEDS: metroNIDAZOLE 500 MG/100 ML IVPB (PRE-MIX) IV SCH ×2 (08:24→21:56)
[2017-05-27] MEDS: FAMOTIDINE 20MG/2ML IV (PEPCID) IVP SCH ×2 (08:24→21:56)
[2017-05-27] MEDS: CEFEPIME INJECTION 2,000 MG in NS (IVPB) 50 ML IV SCH ×2 (08:24→21:56)
--- NOTE | 2017-05-27 09:21 | Physician Query Clarification ---
PQ-Conflicting Diagnosis Admission/Discharge Admission Date: May 24, 2017 at 05:45 Discharge Date: The medical record reflects the following clinical scenario: History/Risk Factors: Cholelithiasis Aspiration Pneumonia Clinical Findings: Lactic acid-2.33, Temp 97.1, Pulse 62, Resp 18, BP 167/97, WBC 6.5, Blood culture-No growth Treatment: IV Vancomycin HCI, IV Levaquin, IV Cefepime HCI. Question: Do you agree with the impression of Sepsis per Dr. Giles, ED physician? Please document a response below. PHYSICIAN RESPONSE Do you agree w/Consulting Dx?: No In responding to this query, please exercise your independent professional judgment. The purpose of this communication is to more accurately reflect the complexity of your patients condition. The fact that a question is asked does not imply that any particular answer is desired or expected. Thank you for your timely response to this clarification. Requestors name: Mervat Enrique [facility] Phone # ext [phone] or [phone] THIS PHYSICIAN QUERY FORM IS A PERMANENT PART OF THE MEDICAL RECORD MERVAT ENRIQUE May 27, 2017 09:21 RHONDA JOHNSON DO May 27, 2017 18:38
[2017-05-27] MEDS ORDERED: BUP/EPI 0.25% 1:200,000 (MARCAINE) 10 ML VIAL IJ ONE ×2 (10:01→14:12)
[2017-05-27] MEDS ORDERED: ROCURONIUM 50 MG/5 ML (ZEMURON) VIAL IV ONE (11:59)
[2017-05-27] MEDS ORDERED: ONDANSETRON 4 MG/2 ML (SDV) Z0FRAN ONE (11:59)
[2017-05-27] MEDS ORDERED: LIDOCAINE PF 2% 5 ML (XYLOCAINE) VIAL ONE (11:59)
[2017-05-27] MEDS ORDERED: DEXAMETHASONE PF 10 MG/ML (DECADRON) VIAL ONE (11:59)
[2017-05-27] MEDS ORDERED: fentaNYL INJECTION 100 MCG/2 ML AMP ONE (11:59)
[2017-05-27] MEDS ORDERED: proPOfol 200 MG/20 ML (DIPRIVAN) VIAL IV ONE ×2 (11:59→14:16)
[2017-05-27] MEDS ORDERED: MIDAZOLAM 2 MG/2 ML (VERSED) VIAL ONE (12:00)
[2017-05-27] MEDS ORDERED: LACTATED RINGERS 1,000 ML IV ONE (12:25)
[2017-05-27] MEDS ORDERED: SEVOFLURANE (ULTANE) 15 ML INHAL SOLN ONE ×5 (12:25→14:16)
[2017-05-27] MEDS ORDERED: ceFAZolin 1,000 MG (ANCEF) VIAL ONE (12:49)
[2017-05-27] MEDS ORDERED: LACTATED RINGERS 1,000 ML IV PRN (12:53)
[2017-05-27] MEDS ORDERED: ceFAZolin 1,000 MG (ANCEF) VIAL IV ONE (13:00)
[2017-05-27] MEDS ORDERED: metroNIDAZOLE 500MG/100ML IVPB 100 ML IV NR (13:00)
[2017-05-27] MEDS ORDERED: MEPERIDINE (DEMEROL) INJ 50 MG/ML IVP PRN (14:15)
[2017-05-27] MEDS ORDERED: ONDANSETRON 4 MG/2 ML (SDV) Z0FRAN IVP PRN ×2 (14:15→14:45)
--- NOTE | 2017-05-27 14:33 | Operative Report ---
Operative Report Date of Procedure/Surgery May 27, 2017 Surgeon (s) ALYSSA FUENTES MD Director Of Field Sales (s): not applicable Post-Operative Diagnosis same Procedure Performed robotic-assisted cholecystectomy Description of Procedure Anesthesia Type: General Estimated blood loss (mL): minimal Specimen(s) collected/removed gallbladder Description of the Procedure Indication for procedure: This lady was found to have a large gallstone with symptoms.She was therefore offered cholecystectomy using invasive technique with robotic assistance. Informed consent was obtained after the procedure in detail. Description of the procedure: She was placed supine on the operative table and general anesthesia induced using an endotracheal tube. A gram of Ancef and 500 mg of Flagyl were administered intravenously as prophylaxis against wound infection. Sequential compression devices were placed around her legs, to minimize the risk of venous thrombosis. Abdomen was prepared and draped in the usual sterile manner. A supraumbilical incision was made and pneumoperitoneum established using a Veress needle. Intra -abdominal pressure was maintained at 15 mm using carbon dioxide insufflation. A 12 mm trocar was placed and anatomy visualized using the high definition, 3- dimensional laparoscope associated with robotic system. Under direct view, I placed an 8 mm cannula over each side of the abdomen, followed by a 5 mm trocar over the left subcostal region. The patient was then turned into reverse Trendelenburg position and the robotic system docked in place. Lesser omentum was adherent to the body of the gallbladder and taken down using hook cautery. The fundus of the gallbladder was then retracted cephalad and the infundibulum grasped with Cardiere forceps. Peritoneum overlying Calot's triangle was incised using hook cautery, delineating cystic duct and artery. Both were divided between locking clips. Cholecystectomy was then completed using hook cautery. The gallbladder was then placed in an Endo Catch bag and removed via the supraumbilical trocar site. The fascia over this incision was closed using #1 Vicryl using the Mendez Castro device. Skin incisions were closed using 4- 0 Vicryl, in a subcuticular fashion. She tolerated the procedure well, was extubated in the operative room and taken to the recovery room in a stable condition Findings of the Procedure see operative report Allergies and Home Medications Allergies Coded Allergies: Penicillins (Verified Allergy, Unknown, 07/30/07) Home Medications Bisacodyl 10 Mg Supp.rect, 10 MG RC DAILY PRN for CONSTIPATION-4TH LINE, ( Reported) Magnesium Hydroxide 400 Mg/5 Ml Oral.susp, 30 ML PO DAILY PRN for CONSTIPATION- 7TH LINE, (Reported) Potassium Chloride 20 Meq/15 Ml Liquid, 10 MEQ PO DAILY, (Reported) 7.5ML OF 20MEQ/15ML Sertraline HCl 50 Mg Tablet, 50 MG PO HS, (Reported) ALYSSA FUENTES MD May 27, 2017 2:33 pm
[2017-05-27] MEDS ORDERED: TRAM50TA2 PO ×2 (14:43)
--- NOTE | 2017-05-27 14:44 | Discharge Inst-Simple/Standard ---
Discharge Inst-Standard Discharge Medications New, Converted or Re-Newed RX: RX on Chart Patient Instructions/Follow Up Plan of Care/Instructions/FU: incentive spirometry. Dressings off in 48 hours. Follow-up in 3 weeks Activity as Tolerated: Yes Discharge Diet: No Restrictions ALYSSA FUENTES MD May 27, 2017 2:44 pm
[2017-05-27] MEDS ORDERED: fentaNYL INJECTION 100 MCG/2 ML AMP IVP PRN (14:45)
[2017-05-27] MEDS ORDERED: HYDROcodone/APAP 5 MG/325 MG (LORTAB) TAB PO PRN (14:45)
[2017-05-27] MEDS: morphine INJ 10 MG/ML 1ML (SYR OR VIAL) IVP PRN ×2 (14:50→14:57)
[2017-05-27 16:10] VITALS: BP 142/77
[2017-05-27] MEDS: NS IV 1000 ML 1,000 ML IV SCH (17:31)
[2017-05-27] MEDS: ENOXAPARIN 40 MG/0.4 ML (LOVENOX) SYR SC SCH (17:32)
[2017-05-27 20:24] VITALS: BP 125/65
[2017-05-27 23:45] VITALS: BP 140/73
[2017-05-28 04:04] LABS: RED BLOOD COUNT 3.81 10^6/uL (4.35-5.85); WHITE BLOOD COUNT 16.4 10^3/uL (4.3-11.0)
[2017-05-28 04:05] LABS: BASOPHILS % (AUTO) 0 % (0-10); EOSINOPHILS % (AUTO) 0 % (0-10); LYMPHOCYTES # (AUTO) 0.7 X 10^3 (1.0-4.0); LYMPHOCYTES % (AUTO) 5 % (12-44); MEAN CORPUSCULAR HEMOGLOBIN 33 PG (25-34); MEAN CORPUSCULAR HGB CONC 33 G/DL (32-36); MEAN CORPUSCULAR VOLUME 102 FL (80-99); MEAN PLATELET VOLUME 12.2 FL (7.4-10.4); MONOCYTES # (AUTO) 1.2 X 10^3 (0.0-1.0); MONOCYTES % (AUTO) 8 % (0-12); NEUTROPHILS # (AUTO) 14.4 X 10^3 (1.8-7.8); NEUTROPHILS % (AUTO) 88 % (42-75); PLATELET COUNT 186 10^3/uL (130-400); RED CELL DISTRIBUTION WIDTH 13.4 % (10.0-14.5)
[2017-05-28 04:33] LABS: ANION GAP 12 MMOL/L (5-14); BLOOD UREA NITROGEN 18 MG/DL (7-18); BUN/CREATININE RATIO 22; CALCIUM 8.2 MG/DL (8.5-10.1); CARBON DIOXIDE 19 MMOL/L (21-32); CHLORIDE 112 MMOL/L (98-107); CREATININE SERUM 0.81 MG/DL (0.60-1.30); GFR ESTIMATED > 60; GLUCOSE 126 MG/DL (70-105); POTASSIUM 3.8 MMOL/L (3.6-5.0); SODIUM 143 MMOL/L (135-145)
[2017-05-28 05:10] LABS: BAND NEUTROPHILS 0 %; BASOPHILS % (MANUAL) 0 %; EOSINOPHILS % (MANUAL) 0 %; LYMPHOCYTES % (MANUAL) 4 %; NEUTROPHILS % (MANUAL) 91 %
--- NOTE | 2017-05-28 06:11 | Progress Note-Standard ---
Standard Progress Note Progress Notes/Assess & Plan Date Seen by Provider: May 28, 2017 Time Seen by Provider: 05:48 Progress/Assessment & Plan Uneventful postoperative night. Adequate pain control. Minimal postoperative tenderness. Could be discharged back to the alf Final Diagnosis Gallstone ALYSSA FUENTES MD May 28, 2017 6:11 am
--- NOTE | 2017-05-28 07:35 | Progress Note (SOAP) ---
Subjective Time Seen by Provider: 07:30 Subjective/Events-last exam patient doing well today after surgery done yesterday. Gallstones. Seizure. Alzheimer's. states is doing good. Patient is nonverbal Objective Exam Vital Signs Date Time Temp Pulse Resp B/P (MAP) Pulse Ox O2 Delivery O2 Flow Rate FiO2 05/28/17 02:10 97 Nasal Cannula 2.00 05/27/17 23:45 97.8 48 18 140/73 95 Room Air 05/27/17 23:45 97 Room Air 05/27/17 20:24 97.1 50 8 125/65 93 Room Air 05/27/17 20:00 Nasal Cannula 2.00 05/27/17 19:35 92 Room Air 05/27/17 18:07 96.2 05/27/17 16:10 96.2 57 16 142/77 94 Room Air 05/27/17 14:57 97.4 05/27/17 11:48 96.6 05/27/17 09:37 96 Room Air 05/27/17 09:37 96 05/27/17 08:00 96.6 59 18 127/75 100 Room Air I & O 05/28/17 07:00 Intake Total 0 ml Output Total 825 ml Balance -825 ml Capillary Refill : Less Than 3 Seconds General Appearance: No Apparent Distress, WD/WN HEENT: Normal ENT Inspection Neck: Full Range of Motion, Normal Inspection Respiratory: Chest Non Tender, Lungs Clear, Normal Breath Sounds, No Accessory Muscle Use, No Respiratory Distress Cardiovascular: Regular Rate, Rhythm, No Murmur Gastrointestinal: soft Results Lab Laboratory Tests 05/28/17 03:42 Laboratory Tests 05/28/17 03:42: White Blood Count 16.4H, Red Blood Count 3.81L, Hemoglobin 12.7, Hematocrit 39, Mean Corpuscular Volume 102H, Mean Corpuscular Hemoglobin 33, Mean Corpuscular Hemoglobin Concent 33, Red Cell Distribution Width 13.4, Platelet Count 186, Mean Platelet Volume 12.2H, Neutrophils (%) (Auto) 88H, Lymphocytes (%) (Auto) 5L, Monocytes (%) (Auto) 8, Eosinophils (%) (Auto) 0, Basophils (%) (Auto) 0, Neutrophils # (Auto) 14.4H, Lymphocytes # (Auto) 0.7L, Monocytes # (Auto) 1.2H, Eosinophils # (Auto) 0.0, Basophils # (Auto) 0.0, Neutrophils % (Manual) 91, Lymphocytes % (Manual) 4, Monocytes % (Manual) 5, Eosinophils % (Manual) 0, Basophils % (Manual) 0, Band Neutrophils 0, Blood Morphology Comment NORMAL, Sodium Level 143, Potassium Level 3.8, Chloride Level 112H, Carbon Dioxide Level 19L, Anion Gap 12, Blood Urea Nitrogen 18, Creatinine 0.81, Estimat Glomerular Filtration Rate > 60, BUN/Creatinine Ratio 22, Glucose Level 126H, Calcium Level 8.2L Microbiology 05/24/17 Blood Culture - Preliminary, Resulted No growth Assessment/Plan Assessment/Plan Assess & Plan/Chief Complaint seizure. Gallstones. Dementia. Leukocytosis. Patient to have gallbladder surgery at 1 p.m. Pneumonia. Patient unable to give any history. . 05/28/17. Seizure. Gallstones. Dementia. Leukocytosis. Pneumonia. Patient did well after surgery. Okay to discharge today. 2 office in one week Clinical Quality Measures DVT/VTE Risk/Contraindication: Risk Factor Score Per Nursin RFS Level Per Nursing on Admit: 4+=Very High RHONDA JOHNSON DO May 28, 2017 07:35
[2017-05-28 07:55] VITALS: BP 132/70
[2017-05-28] MEDS: CEFEPIME INJECTION 2,000 MG in NS (IVPB) 50 ML IV SCH (08:16)
[2017-05-28] MEDS: metroNIDAZOLE 500 MG/100 ML IVPB (PRE-MIX) IV SCH (08:16)
--- NOTE | 2017-05-28 09:18 | DISCHARGE SUMMARY ---
DATE OF ADMISSION: 05/24/2017. DATE OF DISCHARGE: 05/28/2017. DIAGNOSIS: 1. Symptomatic gallstones. 2. New onset of seizure. This lady, a resident of a local alf, due to dementia, was brought in with an episode of seizure and abdominal pain. With regard to the former, no definitive etiology was found out and Dr. Pimentel, her primary physician, feels that medical therapy will be withheld at this point. With regard to gallstone, she underwent cholecystectomy and has made a reasonable recovery. She is being discharged back to the alf with instructions to be brought back in 2 weeks for a postoperative follow-up. Job ID: [id number] Dictated Date: 05/28/2017 08:05:17 Riffler Tender Date: 05/28/2017 09:14:07/wil CASH
[2017-05-28] MEDS: FAMOTIDINE 20MG/2ML IV (PEPCID) IVP SCH (09:40)
[2017-05-28] MEDS: NS IV 1000 ML 1,000 ML IV SCH (09:40)
--- NOTE | 2017-05-28 11:41 | Diagnostic Imaging Report ---
INDICATION: Followup pneumonia. COMPARISON: Previous CT scan from 05/24/2017. FINDINGS: Bilateral lower lung infiltrates are again noted and do not appear significantly changed. The heart remains mildly enlarged. No evidence of pulmonary edema. No pneumothorax or pleural effusion. IMPRESSION: 1. Persistent bilateral infiltrates overlying the lower lungs. 2. Cardiomegaly without changes to suggest pulmonary edema. Dictated by: Dictated on workstation # [id number]
[2017-05-28 13:25] VITALS: BP 132/70
--- OUTSIDE RECORDS SUMMARY | 2017-05-30 04:44 | XMS REPORT | Continuity of Care Document ---
Author Author [facility] Organization [facility] Address Unknown Phone Unavailable Allergies Active Description Code Type Severity Reaction Onset Reported/Identified Relationship to Patient Clinical Status Yes Penicillins [id number] Drug Allergy Unknown N/A 07/30/2007 Medications Problems Date Dx Coded Attending Type Code Diagnosis Diagnosed By 07/27/2015 CIARA GUILLORY MD Ot 331.0 ALZHEIMER'S DISEASE 07/27/2015 CIARA GUILLORY MD Ot 813.44 FX LOW RADIUS W ULNA-CL 07/27/2015 CIARA GUILLORY MD Ot E849.0 ACCIDENT IN HOME 07/27/2015 CIARA GUILLORY MD Ot E888.9 FALL NOS 07/27/2015 CIARA GUILLORY MD Ot V03.82 PROPHYLACTIC VACC AGAINST STREPTOCOCCUS 07/27/2015 CIARA GUILLORY MD Ot V04.81 ND FOR PROPHYLACTIC VACCIN AND INOCULATI 07/27/2015 CIARA GUILLORY MD Ot 331.0 07/27/2015 CIARA GUILLORY MD Ot 813.44 07/27/2015 CIARA GUILLORY MD Ot E849.0 07/27/2015 CIARA GUILLORY MD Ot E888.9 07/27/2015 CIARA GUILLORY MD Ot V03.82 07/27/2015 CIARA GUILLORY MD Ot V04.81 05/24/2017 CIARA GUILLORY MD Ot V76.12 OT SCREEN MAMMO-MALIGN NEOPLASM OF SANDY 05/24/2017 CIARA GUILLORY MD Ot V76.12 OT SCREEN MAMMO-MALIGN NEOPLASM OF SANDY Procedures Results Test Result Range Complete blood count (CBC) with automated white blood cell (WBC) differential - 05/24/17 04:00 Blood leukocytes automated count (number/volume) 6.5 10*3/ uL 4.3-11.0 Blood erythrocytes automated count (number/volume) 3.93 10*6 /uL 4.35-5.85 Venous blood hemoglobin measurement (mass/volume) 12.9 g/dL 11.5-16.0 Blood hematocrit (volume fraction) 40 % 35-52 Automated erythrocyte mean corpuscular volume 102 [foz_us] 80-99 Automated erythrocyte mean corpuscular hemoglobin (mass per erythrocyte) 33 pg 25-34 Automated erythrocyte mean corpuscular hemoglobin concentration measurement ( mass/volume) 32 g/dL 32-36 Automated erythrocyte distribution width ratio 12.9 % 10.0-14.5 Automated blood platelet count (count/volume) 165 10*3/uL 130-400 Automated blood platelet mean volume measurement 12.6 [foz_ us] 7.4-10.4 Automated blood neutrophils/100 leukocytes 47 % 42-75 Automated blood lymphocytes/100 leukocytes 36 % 12-44 Blood monocytes/100 leukocytes 10 % 0-12 Automated blood eosinophils/100 leukocytes 6 % 0-10 Automated blood basophils/100 leukocytes 1 % 0-10 Blood neutrophils automated count (number/volume) 3.1 10*3 1.8-7.8 Blood lymphocytes automated count (number/volume) 2.4 10*3 1.0-4.0 Blood monocytes automated count (number/volume) 0.6 10*3 0.0-1.0 Automated eosinophil count 0.4 10*3/uL 0.0-0.3 Automated blood basophil count (count/volume) 0.1 10*3/uL 0.0-0.1 PT panel in platelet poor plasma by coagulation assay - 05/24/17 04:00 Prothrombin time (PT) in platelet poor plasma by coagulation assay 12.5 s 12.2-14.7 INR in platelet poor plasma or blood by coagulation assay 1.0 0.8-1.4 Activated partial thromboplastin time (aPTT) in platelet poor plasma bycoagulation assay - 05/24/17 04:00 Activated partial thromboplastin time (aPTT) in platelet poor plasma bycoagulation assay 23 s 24-35 Blood lactic acid measurement (moles/volume) - 05/24/17 04:00 Blood lactic acid measurement (moles/volume) 2.33 mmol/L 0.50-2.00 Comprehensive metabolic panel - 05/24/17 04:00 Serum or plasma sodium measurement (moles/volume) 141 mmol/ L 135-145 Serum or plasma potassium measurement (moles/volume) 3.6 mmol/L 3.6-5.0 Serum or plasma chloride measurement (moles/volume) 109 mmol /L 98-107 Carbon dioxide 18 mmol/L 21-32 Serum or plasma anion gap determination (moles/volume) 14 mmol/L 5-14 Serum or plasma urea nitrogen measurement (mass/volume) 15 mg/dL 7-18 Serum or plasma creatinine measurement (mass/volume) 0.82 mg /dL 0.60-1.30 Serum or plasma urea nitrogen/creatinine mass ratio 18 NRG Serum or plasma creatinine measurement with calculation of estimated glomerular filtration rate > NRG Serum or plasma glucose measurement (mass/volume) 111 mg/dL 70-105 Serum or plasma calcium measurement (mass/volume) 8.2 mg/dL 8.5-10.1 Serum or plasma total bilirubin measurement (mass/volume) 0.3 mg/dL 0.1-1.0 Serum or plasma alkaline phosphatase measurement (enzymatic activity/volume) 97 U/L 40-136 Serum or plasma aspartate aminotransferase measurement (enzymatic activity/ volume) 14 U/L 5-34 Serum or plasma alanine aminotransferase measurement (enzymatic activity/volume ) 14 U/L 0-55 Serum or plasma protein measurement (mass/volume) 6.5 g/dL 6.4-8.2 Serum or plasma albumin measurement (mass/volume) 3.5 g/dL 3.2-4.5 Serum or plasma phosphate measurement (mass/volume) - 05/24/17 04:00 Serum or plasma phosphate measurement (mass/volume) 3.2 mg/ dL 2.3-4.7 Magnesium - 05/24/17 04:00 Magnesium 2.1 mg/dL 1.8-2.4 Serum or plasma troponin i.cardiac measurement (mass/volume) - 05/24/17 04:00 Serum or plasma troponin i.cardiac measurement (mass/volume) < ng/mL <0.30 Ammonia - 05/24/17 04:00 Ammonia 31 umol/L 11-32 Serum or plasma C reactive protein measurement (mass/volume) - 05/24/17 04:00 Serum or plasma C reactive protein measurement (mass/volume) 0.20 mg/dL 0.00-0.50 Bacterial blood culture - 05/24/17 04:00 Bacterial blood culture NG NRG Complete urinalysis with reflex to culture - 05/24/17 04:10 Urine color determination YELLOW NRG Urine clarity determination CLEAR NRG Urine pH measurement by test strip 7 5- 9 Specific gravity of urine by test strip 1.010 1.016-1.022 Urine protein assay by test strip, semi-quantitative NEGATIVE NEGATIVE Urine glucose detection by automated test strip NEGATIVE NEGATIVE Erythrocytes detection in urine sediment by light microscopy NEGATIVE NEGATIVE Urine ketones detection by automated test strip NEGATIVE NEGATIVE Urine nitrite detection by test strip NEGATIVE NEGATIVE Urine total bilirubin detection by test strip NEGATIVE NEGATIVE Urine urobilinogen measurement by automated test strip (mass/volume) NORMAL NORMAL Urine leukocyte esterase detection by dipstick NEGATIVE NEGATIVE Automated urine sediment erythrocyte count by microscopy (number/high power field) NONE NRG Automated urine sediment leukocyte count by microscopy (number/high power field ) NONE NRG Bacteria detection in urine sediment by light microscopy NEGATIVE NRG Squamous epithelial cells detection in urine sediment by light microscopy RARE NRG Crystals detection in urine sediment by light microscopy NONE NRG Casts detection in urine sediment by light microscopy PRESENT NRG Mucus detection in urine sediment by light microscopy NEGATIVE NRG Complete urinalysis with reflex to culture NO NRG Hyaline casts detection in urine sediment by light microscopy RARE NRG Bacterial blood culture - 05/24/17 05:07 Bacterial blood culture NG NRG Serum or plasma lactate measurement (moles/volume) - 05/24/17 06:11 Serum or plasma lactate measurement (moles/volume) 1.41 mmol /L 0.50-2.00 Complete blood count (CBC) with automated white blood cell (WBC) differential - 05/25/17 05:50 Blood leukocytes automated count (number/volume) 6.7 10*3/ uL 4.3-11.0 Blood erythrocytes automated count (number/volume) 3.83 10*6 /uL 4.35-5.85 Venous blood hemoglobin measurement (mass/volume) 12.6 g/dL 11.5-16.0 Blood hematocrit (volume fraction) 40 % 35-52 Automated erythrocyte mean corpuscular volume 103 [foz_us] 80-99 Automated erythrocyte mean corpuscular hemoglobin (mass per erythrocyte) 33 pg 25-34 Automated erythrocyte mean corpuscular hemoglobin concentration measurement ( mass/volume) 32 g/dL 32-36 Automated erythrocyte distribution width ratio 13.0 % 10.0-14.5 Automated blood platelet count (count/volume) 166 10*3/uL 130-400 Automated blood platelet mean volume measurement 12.1 [foz_ us] 7.4-10.4 Automated blood neutrophils/100 leukocytes 62 % 42-75 Automated blood lymphocytes/100 leukocytes 27 % 12-44 Blood monocytes/100 leukocytes 9 % 0-12 Automated blood eosinophils/100 leukocytes 2 % 0-10 Automated blood basophils/100 leukocytes 1 % 0-10 Blood neutrophils automated count (number/volume) 4.1 10*3 1.8-7.8 Blood lymphocytes automated count (number/volume) 1.8 10*3 1.0-4.0 Blood monocytes automated count (number/volume) 0.6 10*3 0.0-1.0 Automated eosinophil count 0.2 10*3/uL 0.0-0.3 Automated blood basophil count (count/volume) 0.0 10*3/uL 0.0-0.1 Blood lactic acid measurement (moles/volume) - 05/25/17 05:50 Blood lactic acid measurement (moles/volume) 0.63 mmol/L 0.50-2.00 Comprehensive metabolic panel - 05/25/17 05:50 Serum or plasma sodium measurement (moles/volume) 142 mmol/ L 135-145 Serum or plasma potassium measurement (moles/volume) 3.6 mmol/L 3.6-5.0 Serum or plasma chloride measurement (moles/volume) 109 mmol /L 98-107 Carbon dioxide 24 mmol/L 21-32 Serum or plasma anion gap determination (moles/volume) 9 mmol/L 5-14 Serum or plasma urea nitrogen measurement (mass/volume) 12 mg/dL 7-18 Serum or plasma creatinine measurement (mass/volume) 0.80 mg /dL 0.60-1.30 Serum or plasma urea nitrogen/creatinine mass ratio 15 NRG Serum or plasma creatinine measurement with calculation of estimated glomerular filtration rate > NRG Serum or plasma glucose measurement (mass/volume) 100 mg/dL 70-105 Serum or plasma calcium measurement (mass/volume) 8.5 mg/dL 8.5-10.1 Serum or plasma total bilirubin measurement (mass/volume) 0.4 mg/dL 0.1-1.0 Serum or plasma alkaline phosphatase measurement (enzymatic activity/volume) 91 U/L 40-136 Serum or plasma aspartate aminotransferase measurement (enzymatic activity/ volume) 13 U/L 5-34 Serum or plasma alanine aminotransferase measurement (enzymatic activity/volume ) 11 U/L 0-55 Serum or plasma protein measurement (mass/volume) 6.2 g/dL 6.4-8.2 Serum or plasma albumin measurement (mass/volume) 3.3 g/dL 3.2-4.5 Comprehensive metabolic panel - 05/27/17 04:00 Serum or plasma sodium measurement (moles/volume) 140 mmol/ L 135-145 Serum or plasma potassium measurement (moles/volume) 3.6 mmol/L 3.6-5.0 Serum or plasma chloride measurement (moles/volume) 111 mmol /L 98-107 Carbon dioxide 20 mmol/L 21-32 Serum or plasma anion gap determination (moles/volume) 9 mmol/L 5-14 Serum or plasma urea nitrogen measurement (mass/volume) 21 mg/dL 7-18 Serum or plasma creatinine measurement (mass/volume) 0.79 mg /dL 0.60-1.30 Serum or plasma urea nitrogen/creatinine mass ratio 27 NRG Serum or plasma creatinine measurement with calculation of estimated glomerular filtration rate > NRG Serum or plasma glucose measurement (mass/volume) 139 mg/dL 70-105 Serum or plasma calcium measurement (mass/volume) 8.5 mg/dL 8.5-10.1 Serum or plasma total bilirubin measurement (mass/volume) 0.4 mg/dL 0.1-1.0 Serum or plasma alkaline phosphatase measurement (enzymatic activity/volume) 79 U/L 40-136 Serum or plasma aspartate aminotransferase measurement (enzymatic activity/ volume) 19 U/L 5-34 Serum or plasma alanine aminotransferase measurement (enzymatic activity/volume ) 15 U/L 0-55 Serum or plasma protein measurement (mass/volume) 6.1 g/dL 6.4-8.2 Serum or plasma albumin measurement (mass/volume) 3.3 g/dL 3.2-4.5 Automated blood complete blood count (hemogram) panel - 05/27/17 04:00 Blood leukocytes automated count (number/volume) 15.1 10*3/ uL 4.3-11.0 Blood erythrocytes automated count (number/volume) 3.79 10*6 /uL 4.35-5.85 Venous blood hemoglobin measurement (mass/volume) 12.6 g/dL 11.5-16.0 Blood hematocrit (volume fraction) 39 % 35-52 Automated erythrocyte mean corpuscular volume 103 [foz_us] 80-99 Automated erythrocyte mean corpuscular hemoglobin (mass per erythrocyte) 33 pg 25-34 Automated erythrocyte mean corpuscular hemoglobin concentration measurement ( mass/volume) 32 g/dL 32-36 Automated erythrocyte distribution width ratio 13.1 % 10.0-14.5 Automated blood platelet count (count/volume) 204 10*3/uL 130-400 Automated blood platelet mean volume measurement 13.0 [foz_ us] 7.4-10.4 Complete blood count (CBC) with automated white blood cell (WBC) differential - 05/28/17 03:42 Blood leukocytes automated count (number/volume) 16.4 10*3/ uL 4.3-11.0 Blood erythrocytes automated count (number/volume) 3.81 10*6 /uL 4.35-5.85 Venous blood hemoglobin measurement (mass/volume) 12.7 g/dL 11.5-16.0 Blood hematocrit (volume fraction) 39 % 35-52 Automated erythrocyte mean corpuscular volume 102 [foz_us] 80-99 Automated erythrocyte mean corpuscular hemoglobin (mass per erythrocyte) 33 pg 25-34 Automated erythrocyte mean corpuscular hemoglobin concentration measurement ( mass/volume) 33 g/dL 32-36 Automated erythrocyte distribution width ratio 13.4 % 10.0-14.5 Automated blood platelet count (count/volume) 186 10*3/uL 130-400 Automated blood platelet mean volume measurement 12.2 [foz_ us] 7.4-10.4 Automated blood neutrophils/100 leukocytes 88 % 42-75 Automated blood lymphocytes/100 leukocytes 5 % 12-44 Blood monocytes/100 leukocytes 8 % 0-12 Automated blood eosinophils/100 leukocytes 0 % 0-10 Automated blood basophils/100 leukocytes 0 % 0-10 Blood neutrophils automated count (number/volume) 14.4 10*3 1.8-7.8 Blood lymphocytes automated count (number/volume) 0.7 10*3 1.0-4.0 Blood monocytes automated count (number/volume) 1.2 10*3 0.0-1.0 Automated eosinophil count 0.0 10*3/uL 0.0-0.3 Automated blood basophil count (count/volume) 0.0 10*3/uL 0.0-0.1 Whole blood basic metabolic panel - 05/28/17 03:42 Serum or plasma sodium measurement (moles/volume) 143 mmol/ L 135-145 Serum or plasma potassium measurement (moles/volume) 3.8 mmol/L 3.6-5.0 Serum or plasma chloride measurement (moles/volume) 112 mmol /L 98-107 Carbon dioxide 19 mmol/L 21-32 Serum or plasma anion gap determination (moles/volume) 12 mmol/L 5-14 Serum or plasma urea nitrogen measurement (mass/volume) 18 mg/dL 7-18 Serum or plasma creatinine measurement (mass/volume) 0.81 mg /dL 0.60-1.30 Serum or plasma urea nitrogen/creatinine mass ratio 22 NRG Serum or plasma creatinine measurement with calculation of estimated glomerular filtration rate > NRG Serum or plasma glucose measurement (mass/volume) 126 mg/dL 70-105 Serum or plasma calcium measurement (mass/volume) 8.2 mg/dL 8.5-10.1 Blood manual differential performed detection - 05/28/17 03:42 Blood monocytes/100 leukocytes 5 % NRG Manual blood segmented neutrophils/100 leukocytes 91 % NRG Blood band neutrophils/100 leukocytes 0 % NRG Manual blood lymphocytes/100 leukocytes 4 % NRG Manual eosinophils/100 leukocytes in nose 0 % NRG Manual blood basophils/100 leukocytes 0 % NRG Blood erythrocyte morphology finding identification NORMAL NRG Complete blood count (CBC) with automated white blood cell (WBC) differential - 05/29/17 15:30 Blood leukocytes automated count (number/volume) 18.1 10*3/ uL 4.3-11.0 Blood erythrocytes automated count (number/volume) 4.50 10*6 /uL 4.35-5.85 Venous blood hemoglobin measurement (mass/volume) 14.8 g/dL 11.5-16.0 Blood hematocrit (volume fraction) 45 % 35-52 Automated erythrocyte mean corpuscular volume 100 [foz_us] 80-99 Automated erythrocyte mean corpuscular hemoglobin (mass per erythrocyte) 33 pg 25-34 Automated erythrocyte mean corpuscular hemoglobin concentration measurement ( mass/volume) 33 g/dL 32-36 Automated erythrocyte distribution width ratio 12.8 % 10.0-14.5 Automated blood platelet count (count/volume) 228 10*3/uL 130-400 Automated blood platelet mean volume measurement 11.8 [foz_ us] 7.4-10.4 Automated blood neutrophils/100 leukocytes 84 % 42-75 Automated blood lymphocytes/100 leukocytes 8 % 12-44 Blood monocytes/100 leukocytes 8 % 0-12 Automated blood eosinophils/100 leukocytes 0 % 0-10 Automated blood basophils/100 leukocytes 0 % 0-10 Blood neutrophils automated count (number/volume) 15.2 10*3 1.8-7.8 Blood lymphocytes automated count (number/volume) 1.4 10*3 1.0-4.0 Blood monocytes automated count (number/volume) 1.5 10*3 0.0-1.0 Automated eosinophil count 0.0 10*3/uL 0.0-0.3 Automated blood basophil count (count/volume) 0.0 10*3/uL 0.0-0.1 Blood lactic acid measurement (moles/volume) - 05/29/17 15:30 Blood lactic acid measurement (moles/volume) 1.57 mmol/L 0.50-2.00 Comprehensive metabolic panel - 05/29/17 15:30 Serum or plasma sodium measurement (moles/volume) 138 mmol/ L 135-145 Serum or plasma potassium measurement (moles/volume) 3.1 mmol/L 3.6-5.0 Serum or plasma chloride measurement (moles/volume) 101 mmol /L 98-107 Carbon dioxide 30 mmol/L 21-32 Serum or plasma anion gap determination (moles/volume) 7 mmol/L 5-14 Serum or plasma urea nitrogen measurement (mass/volume) 9 mg /dL 7-18 Serum or plasma creatinine measurement (mass/volume) 0.65 mg /dL 0.60-1.30 Serum or plasma urea nitrogen/creatinine mass ratio 14 NRG Serum or plasma creatinine measurement with calculation of estimated glomerular filtration rate > NRG Serum or plasma glucose measurement (mass/volume) 113 mg/dL 70-105 Serum or plasma calcium measurement (mass/volume) 8.2 mg/dL 8.5-10.1 Serum or plasma total bilirubin measurement (mass/volume) 0.6 mg/dL 0.1-1.0 Serum or plasma alkaline phosphatase measurement (enzymatic activity/volume) 87 U/L 40-136 Serum or plasma aspartate aminotransferase measurement (enzymatic activity/ volume) 35 U/L 5-34 Serum or plasma alanine aminotransferase measurement (enzymatic activity/volume ) 37 U/L 0-55 Serum or plasma protein measurement (mass/volume) 6.7 g/dL 6.4-8.2 Serum or plasma albumin measurement (mass/volume) 3.5 g/dL 3.2-4.5 Encounters ACCT No. Visit Date/Time Discharge Status Pt. Type Provider Facility Loc./Unit Complaint [id number] 05/24/2017 05:45:00 2016 13:25:00 DIS Inpatient RHONDA JOHNSON DO [facility] 4TH SEPSIS,CHOLELITHIASIS,ASP PNA POSS,ACUTE ABD. [id number] 07/26/2015 20:13:00 2014 14:00:00 DIS Inpatient CIARA GUILLORY MD [facility] SURGICAL R WRIST FX,INABILITY TO CARE FOR SELF,HYPOKALEMIA [id number] 08/18/2014 14:45:00 2013 23:59:59 CLS Outpatient CIARA GUILLORY MD [facility] RAD ROUTINE [id number] 08/14/2013 11:20:00 2012 23:59:59 CLS Outpatient CIARA GUILLORY MD [facility] RAD ROUTINE [id number] 05/04/2013 19:25:00 2012 23:59:59 CLS Outpatient [id number] 05/29/2017 15:43:00 Document Registration
--- OUTSIDE RECORDS SUMMARY | 2017-05-30 05:06 | XMS REPORT | Continuity of Care Document ---
Author Author [facility] Organization [facility] Address Unknown Phone Unavailable Allergies Active Description Code Type Severity Reaction Onset Reported/Identified Relationship to Patient Clinical Status Yes Penicillins [id number] Drug Allergy Unknown N/A 07/30/2007 Medications Problems [...] Status Pt. Type Provider Facility Loc./Unit Complaint [id number] 05/24/2017 05:45:00 2016 13:25:00 DIS Inpatient RHONDA JOHNSON DO [facility] 4TH SEPSIS,CHOLELITHIASIS,ASP PNA POSS,ACUTE ABD. [id number] 07/26/2015 20:13:00 2014 14:00:00 DIS Inpatient CIARA GUILLORY MD [facility] SURGICAL R WRIST FX,INABILITY TO CARE FOR SELF,HYPOKALEMIA [id number] 08/18/2014 14:45:00 2013 23:59:59 CLS Outpatient CIARA GUILLORY MD [facility] RAD ROUTINE [id number] 08/14/2013 11:20:00 2012 23:59:59 CLS Outpatient CIARA GUILLORY MD [facility] RAD ROUTINE [id number] 05/04/2013 19:25:00 2012 23:59:59 CLS Outpatient [id number] 05/29/2017 15:43:00 Document Registration
== END 2017-05-28 13:25 | DRG 417 ==
LOC: EDUNIT# 03:54 → ER 03:57 → 4TH 05:45 → ENPENDDIS 05-28 10:00
PROVIDERS: ADMIT Family Medicine; ATTEND Family Medicine
PROC: 8E0W4CZ Robotic Assisted Procedure of Trunk Region, Percutaneous Endoscopic Approach (ICD-10-PCS; 2017-05-27)
PROC: 0FT44ZZ Resection of Gallbladder, Percutaneous Endoscopic Approach (ICD-10-PCS; principal; 2017-05-27 13:10)
DX: K80.20 Calculus of gallbladder without cholecystitis without obstruction (principal); J69.0 Pneumonitis due to inhalation of food and vomit; R56.00 Simple febrile convulsions; E87.2 Acidosis; G30.0 Alzheimer's disease with early onset; F02.80 Dementia in other diseases classified elsewhere, unspecified severity, without behavioral disturbance, psychotic disturbance, mood disturbance, and anxiety; L27.0 Generalized skin eruption due to drugs and medicaments taken internally; Z66 Do not resuscitate; T36.8X5A Adverse effect of other systemic antibiotics, initial encounter; K59.00 Constipation, unspecified; Z87.891 Personal history of nicotine dependence
CPT/HCPCS: 36415; 51702; 70450; 71010; 71260; 74176; 76705; 80048; 80053; 81000; 82140; 83605; 83735; 84100; 84484; 85007; 85025; 85027; 85610; 85730; 86141; 87040; 88304; 94760; 96361; 96374; 96375

== ENCOUNTER 2017-05-29 14:44 | Inpatient (IN) | payer MEDICARE, MEDICAID ==
[~2017-05-29] VITALS: Ht 170.2 cm; Wt 61.0 kg
[~2017-05-29 14:44] MED LIST changes: -CLOT15CR6 TOP; -MENT71OI TP; -ONDA4TAB10 PO
--- NOTE | 2017-05-29 15:26 | ED General ---
General Stated Complaint: DR REFERRAL PER [facility] Source of Information: Patient Exam Limitations: No Limitations History of Present Illness Time Seen by Provider: 15:24 Initial Comments To ER by half-way staff with reports of persistent pneumonia and leukocytosis. Patient was here for symptomatic cholelithiasis and pneumonia last week and discharged on the . She had outpatient labs done today showed a persistent leukocytosis at 18,000; her primary care provider Dr. Dr. Johnson who recommended she be evaluated in the emergency room. Patient has Alzheimer's and is nonverbal and does not contribute to history of present illness or review of systems. Additionally, she's not had a bowel movement in several days Timing/Duration: 1-2 Days Severity: Moderate Associated Systoms: Cough, Fever/Chills, Nausea/Vomiting Allergies and Home Medications Allergies Coded Allergies: Penicillins (Verified Allergy, Unknown, 07/30/07) Home Medications Bisacodyl 10 Mg Supp.rect, 10 MG RC DAILY PRN for CONSTIPATION-4TH LINE, ( Reported) Magnesium Hydroxide 400 Mg/5 Ml Oral.susp, 30 ML PO DAILY PRN for CONSTIPATION- 7TH LINE, (Reported) Potassium Chloride 20 Meq/15 Ml Liquid, 10 MEQ PO DAILY, (Reported) 7.5ML OF 20MEQ/15ML Sertraline HCl 50 Mg Tablet, 50 MG PO HS, (Reported) Tramadol HCl 50 Mg Tablet, 50 MG PO Q12H PRN for ABDOMINAL PAIN, #20 Prescribed by: ALYSSA FUENTES on 05/27/17 6483 Constitutional: see HPI EENTM: see HPI Respiratory: no symptoms reported Cardiovascular: no symptoms reported Genitourinary: no symptoms reported Musculoskeletal: no symptoms reported Skin: no symptoms reported Psychiatric/Neurological: No Symptoms Reported Hematologic/Lymphatic: No Symptoms Reported Past [id number] Hx Patient Social History Recent Foreign Travel: No Contact w/Someone Who Travel: No Recent Hopitalizations: No Seasonal Allergies Seasonal Allergies: No Surgeries HX Surgeries: Yes (Catatact sx) Surgeries: Eye Surgery Respiratory Hx Respiratory Disorders: No Cardiovascular Hx Cardiac Disorders: Yes Neurological Hx Neurological Disorders: Yes (Alzheimer's) Neurological Disorders: Dementia Reproductive System Hx Reproductive Disorders: No Genitourinary Hx Genitourinary Disorders: No Gastrointestinal Hx Gastrointestinal Disorders: No Musculoskeletal Hx Musculoskeletal Disorders: No Endocrine Hx Endocrine Disorders: No HEENT HX ENT Disorders: Yes HEENT Disorders: Cataract Loss of Vision: Denies Hearing Impairment: Denies Cancer Hx Cancer: No Psychosocial Hx Psychiatric Problems: No Integumentary HX Skin/Integumentary Disorder: No Blood Transfusions Hx Blood Disorders: No Family Medical History Family Medial History: Patient reports no known family medical history. Physical Exam Vital Signs Vital Sign - Last 12Hours 05/29/17 15:32 Temp 97.5 Pulse 86 Resp 18 B/P (MAP) 143/113 Pulse Ox 95 Capillary Refill : General Appearance: No Apparent Distress, WD/WN Eyes: Bilateral Eye EOMI, Bilateral Eye Normal Inspection, Bilateral Eye PERRL HEENT: PERRL/EOMI, TMs Normal Neck: Full Range of Motion, Normal Inspection Respiratory: Normal Breath Sounds, No Accessory Muscle Use, No Respiratory Distress, Crackles Cardiovascular: Regular Rate, Rhythm, Normal Peripheral Pulses Gastrointestinal: Normal Bowel Sounds, Non Tender, Soft, Other (abdominal incisions from the laparoscopic cholecystectomy are clean dry and intact without surrounding erythema) Extremity: Normal Capillary Refill, Normal Inspection Neurologic/Psychiatric: Alert, Oriented x3, No Motor/Sensory Deficits Skin: Normal Color, Warm/Dry Focused Exam Lactic Acid Level Laboratory Tests Test 05/29/17 15:30 Lactic Acid Level 1.57 MMOL/L (0.50-2.00) Progress/Results/Core Measures Results/Orders Lab Results Laboratory Tests Test 05/29/17 15:30 05/29/17 15:40 Range/Units White Blood Count 18.1 H 4.3-11.0 10^3/uL Red Blood Count 4.50 4.35-5.85 10^6/uL Hemoglobin 14.8 11.5-16.0 G/DL Hematocrit 45 35-52 % Mean Corpuscular Volume 100 H 80-99 FL Mean Corpuscular Hemoglobin 33 25-34 PG Mean Corpuscular Hemoglobin Concent 33 32-36 G/DL Red Cell Distribution Width 12.8 10.0-14.5 % Platelet Count 228 130-400 10^3/uL Mean Platelet Volume 11.8 H 7.4-10.4 FL Neutrophils (%) (Auto) 84 H 42-75 % Lymphocytes (%) (Auto) 8 L 12-44 % Monocytes (%) (Auto) 8 0-12 % Eosinophils (%) (Auto) 0 0-10 % Basophils (%) (Auto) 0 0-10 % Neutrophils # (Auto) 15.2 H 1.8-7.8 X 10^3 Lymphocytes # (Auto) 1.4 1.0-4.0 X 10^3 Monocytes # (Auto) 1.5 H 0.0-1.0 X 10^3 Eosinophils # (Auto) 0.0 0.0-0.3 10^3/uL Basophils # (Auto) 0.0 0.0-0.1 10^3/uL Neutrophils % (Manual) 78 % Lymphocytes % (Manual) 22 % Monocytes % (Manual) 0 % Eosinophils % (Manual) 0 % Basophils % (Manual) 0 % Band Neutrophils 0 % Blood Morphology Comment NORMAL Sodium Level 138 135-145 MMOL/L Potassium Level 3.1 L 3.6-5.0 MMOL/L Chloride Level 101 98-107 MMOL/L Carbon Dioxide Level 30 21-32 MMOL/L Anion Gap 7 5-14 MMOL/L Blood Urea Nitrogen 9 7-18 MG/DL Creatinine 0.65 0.60-1.30 MG/DL Estimat Glomerular Filtration Rate > 60 BUN/Creatinine Ratio 14 Glucose Level 113 H 70-105 MG/DL Lactic Acid Level 1.57 0.50-2.00 MMOL/L Calcium Level 8.2 L 8.5-10.1 MG/DL Total Bilirubin 0.6 0.1-1.0 MG/DL Aspartate Amino Transf (AST/SGOT) 35 H 5-34 U/L Alanine Aminotransferase (ALT/SGPT) 37 0-55 U/L Alkaline Phosphatase 87 40-136 U/L Total Protein 6.7 6.4-8.2 GM/DL Albumin 3.5 3.2-4.5 GM/DL Urine Color YELLOW Urine Clarity CLEAR Urine pH 7 5-9 Urine Specific [place] 1.010 L 1.016-1.022 Urine Protein 1+ H NEGATIVE Urine Glucose (UA) NEGATIVE NEGATIVE Urine Ketones 3+ H NEGATIVE Urine Nitrite NEGATIVE NEGATIVE Urine Bilirubin NEGATIVE NEGATIVE Urine Urobilinogen NORMAL NORMAL MG/DL Urine Leukocyte Esterase NEGATIVE NEGATIVE Urine RBC (Auto) 1+ H NEGATIVE Urine RBC RARE /HPF Urine WBC 0-2 /HPF Urine Crystals NONE /LPF Urine Bacteria NEGATIVE /HPF Urine Casts NONE /LPF Urine Mucus SMALL H /LPF Urine Culture Indicated NO My Orders Orders - LAURA RODRIGUEZ [employer]STRUCTION[employer]Y FAC[employer]ITATOR Cbc With Automated Diff (05/29/17 14:54) Comprehensive Metabolic Panel (05/29/17 14:54) Blood Culture (05/29/17 14:54) Ua Culture If Indicated (05/29/17 14:54) Lactic Acid Analyzer (05/29/17 14:54) Chest 1 View, Ap/Pa Only (05/29/17 14:54) Manual Differential (05/29/17 15:30) Ondansetron Injection (Zofran Injectio (05/29/17 16:15) Ct Abdomen/Pelvis W (05/29/17 16:02) Ns Iv 1000 Ml (Sodium Chloride 0.9%) (05/29/17 16:30) Iohexol Injection (Omnipaque 350 Mg/Ml 1 (05/29/17 17:15) Ns (Ivpb) (Sodium Chloride 0.9% Ivpb Bag (05/29/17 17:15) Lipase (05/29/17 18:04) Medications Given in ED Current Medications Medications Dose Ordered Sig/Amy Route Start Time Stop Time Status Last Admin Dose Admin Iohexol 100 ml ONCE ONCE IV 05/29/17 17:15 05/29/17 17:25 DC 05/29/17 17:29 100 ML Ondansetron HCl 4 mg ONCE ONCE IVP 05/29/17 16:15 05/29/17 16:16 DC 05/29/17 17:09 4 MG Sodium Chloride 100 ml ONCE ONCE IV 05/29/17 17:15 05/29/17 17:25 DC 05/29/17 17:30 80 ML Vital Signs/I&O Vital Sign - Last 12Hours 05/29/17 15:32 Temp 97.5 Pulse 86 Resp 18 B/P (MAP) 143/113 Pulse Ox 95 Departure Communication Time/Spoke to Admitting Phy: 18:06 Communication I discussed the case with Dr. Dr. Johnson. We'll admit the patient and consult Dr. Fuentes tomorrow. Impression Impression: Primary Impression: Pneumonia Additional Impression: Nausea & vomiting Disposition: ADMITTED INPATIENT Condition: Stable Decision to Admit Reason: Admit from ER (General) Decision to Admit/Date: May 29, 2017 Time/Decision to Admit Time: 18:07 Departure-Patient Inst. Referrals: RHONDA JOHNSON DO (PCP/Family) Primary Care Physician LAURA RODRIGUEZ APRN May 29, 2017 15:26
[2017-05-29 15:41] LABS: BASOPHILS % (AUTO) 0 % (0-10); EOSINOPHILS % (AUTO) 0 % (0-10); LYMPHOCYTES # (AUTO) 1.4 X 10^3 (1.0-4.0); LYMPHOCYTES % (AUTO) 8 % (12-44); MEAN CORPUSCULAR HEMOGLOBIN 33 PG (25-34); MEAN CORPUSCULAR HGB CONC 33 G/DL (32-36); MEAN CORPUSCULAR VOLUME 100 FL (80-99); MEAN PLATELET VOLUME 11.8 FL (7.4-10.4); MONOCYTES # (AUTO) 1.5 X 10^3 (0.0-1.0); MONOCYTES % (AUTO) 8 % (0-12); NEUTROPHILS # (AUTO) 15.2 X 10^3 (1.8-7.8); NEUTROPHILS % (AUTO) 84 % (42-75); PLATELET COUNT 228 10^3/uL (130-400); RED CELL DISTRIBUTION WIDTH 12.8 % (10.0-14.5); WHITE BLOOD COUNT 18.1 10^3/uL (4.3-11.0)
[2017-05-29 15:49] LABS: BILIRUBIN,URINE NEGATIVE (NEGATIVE); KETONES,URINE 3+ (NEGATIVE); LEUKOCYTE ESTERASE ,URINE NEGATIVE (NEGATIVE); NITRITE,URINE NEGATIVE (NEGATIVE); PH,URINE 7 (5-9); PROTEIN,URINE 1+ (NEGATIVE); UROBILINOGEN,URINE NORMAL (NORMAL)
[2017-05-29 15:58] LABS: ALANINE AMINOTRANSFERASE 37 U/L (0-55); ALBUMIN 3.5 GM/DL (3.2-4.5); ANION GAP 7 MMOL/L (5-14); ASPARTATE AMINO TRANSFERASE 35 U/L (5-34); BILIRUBIN,TOTAL 0.6 MG/DL (0.1-1.0); BLOOD UREA NITROGEN 9 MG/DL (7-18); BUN/CREATININE RATIO 14; CALCIUM 8.2 MG/DL (8.5-10.1); CARBON DIOXIDE 30 MMOL/L (21-32); CHLORIDE 101 MMOL/L (98-107); CREATININE SERUM 0.65 MG/DL (0.60-1.30); GFR ESTIMATED > 60; GLUCOSE 113 MG/DL (70-105); POTASSIUM 3.1 MMOL/L (3.6-5.0); SODIUM 138 MMOL/L (135-145); TOTAL PROTEIN 6.7 GM/DL (6.4-8.2)
--- NOTE | 2017-05-29 15:58 | Diagnostic Imaging Report ---
Indication: Leukocytosis Portable chest 3:50 PM Heart size and pulmonary vascular normal. Lungs are clear. There are no effusions or pneumothoraces. Impression: Negative chest Dictated by: Dictated on workstation # [id number]
[2017-05-29 16:02] LABS: BAND NEUTROPHILS 0 %; LYMPHOCYTES % (MANUAL) 22 %; NEUTROPHILS % (MANUAL) 78 %
[2017-05-29 16:03] LABS: BASOPHILS % (MANUAL) 0 %; EOSINOPHILS % (MANUAL) 0 %
[2017-05-29 16:15] LABS: WBC,URINE 0-2 /HPF
[2017-05-29] MEDS ORDERED: ONDANSETRON 4 MG/2 ML (SDV) Z0FRAN IVP ONE (16:15)
[2017-05-29] MEDS ORDERED: NS IV 1000 ML 1,000 ML IV SCH (16:30)
[2017-05-29] MEDS ORDERED: IOHEXOL 350 MG/ML 100 ML (OMNIPAQUE 350) VIAL IV ONE (17:15)
[2017-05-29] MEDS ORDERED: NS 100 ML (IVPB) BAG IV ONE (17:15)
--- NOTE | 2017-05-29 17:53 | Diagnostic Imaging Report ---
PROCEDURE: CT abdomen and pelvis with contrast. TECHNIQUE: Multiple contiguous axial images were obtained through the abdomen and pelvis after administration of intravenous contrast. INDICATION: Coffee ground emesis. FINDINGS: The lung bases demonstrate some patchy opacities within the lingula and the right middle lobe which are not significantly changed from the patient's prior examination. There is no pleural or pericardial effusion. Liver demonstrates no evidence of a focal intrahepatic abnormality. The patient appears to be status post an interval cholecystectomy. There is no free fluid near the gallbladder fossa. There is no abnormal biliary dilatation. The spleen is normal in size. Pancreas unremarkable. There is no adrenal mass. The kidneys appear nonobstructed. The small and large bowel are normal in caliber without evidence of obstruction. There is a large degree of stool demonstrated at the level of the rectum. This is, however, improved from the previous exam. There is no focal abnormal bowel thickening or focal inflammatory fat stranding demonstrated within the omentum or the mesentery. No abscess is demonstrated. There is air within the urinary bladder suggesting recent catheterization. Aorta is normal in caliber. No acute osseous abnormalities are demonstrated. There are multilevel degenerative changes present within the spine. IMPRESSION: 1. Interval operative changes of cholecystectomy with no abnormal fluid within the gallbladder fossa within the pelvis. There is no abscess or free intraperitoneal air demonstrated. Small degree of gas within the soft tissues of the abdomen appears to be related to recent surgery. 2. Large degree of stool remains within the rectum though this is improved from the prior examination. No bowel obstruction is evident. 3. Gas within the urinary bladder is presumably related to recent catheterization. 4. No focal inflammatory fat stranding or free fluid demonstrated within the abdomen or pelvis. No obstructive process demonstrated. Dictated by: Dictated on workstation # [id number]
[2017-05-29] MEDS ORDERED: CEFEPIME INJECTION 2,000 MG in NS (IVPB) 50 ML IV ONE (18:15)
[2017-05-29] MEDS ORDERED: ONDANSETRON 4 MG/2 ML (SDV) Z0FRAN IV PRN (19:15)
[2017-05-29] MEDS ORDERED: CATHETER FLUSH 10 ML SYR IV PRN (19:15)
[2017-05-29] MEDS: LEVOFLOXACIN 750 MG/D5W 150 ML (PRE-MIX) IV SCH (19:50)
[2017-05-29] MEDS: NS W/KCL 40 MEQ/L 1,000 ML IV SCH (19:51)
[2017-05-29 19:55] VITALS: BP 145/99
[2017-05-29] MEDS ORDERED: RT-ALBUTEROL SULF 2.5 MG/3 ML PRE-MIX VIAL IH PRN (20:45)
[2017-05-30] VITALS: BP 150/91
[2017-05-30 04:00] VITALS: BP 158/98
[2017-05-30] MEDS: NS W/KCL 40 MEQ/L 1,000 ML IV SCH ×2 (04:29→17:39)
[2017-05-30 04:45] LABS: BASOPHILS % (AUTO) 0 % (0-10); EOSINOPHILS # (AUTO) 0.1 10^3/uL (0.0-0.3); EOSINOPHILS % (AUTO) 1 % (0-10); LYMPHOCYTES # (AUTO) 1.3 X 10^3 (1.0-4.0); LYMPHOCYTES % (AUTO) 9 % (12-44); MEAN CORPUSCULAR HEMOGLOBIN 33 PG (25-34); MEAN CORPUSCULAR HGB CONC 32 G/DL (32-36); MEAN CORPUSCULAR VOLUME 101 FL (80-99); MEAN PLATELET VOLUME 12.1 FL (7.4-10.4); MONOCYTES # (AUTO) 1.4 X 10^3 (0.0-1.0); MONOCYTES % (AUTO) 10 % (0-12); NEUTROPHILS # (AUTO) 11.6 X 10^3 (1.8-7.8); NEUTROPHILS % (AUTO) 81 % (42-75); PLATELET COUNT 200 10^3/uL (130-400); RED BLOOD COUNT 4.09 10^6/uL (4.35-5.85); RED CELL DISTRIBUTION WIDTH 12.9 % (10.0-14.5); WHITE BLOOD COUNT 14.4 10^3/uL (4.3-11.0)
[2017-05-30 05:06] LABS: ALANINE AMINOTRANSFERASE 32 U/L (0-55); ALBUMIN 3.4 GM/DL (3.2-4.5); ANION GAP 13 MMOL/L (5-14); ASPARTATE AMINO TRANSFERASE 25 U/L (5-34); BILIRUBIN,TOTAL 0.6 MG/DL (0.1-1.0); BLOOD UREA NITROGEN 8 MG/DL (7-18); BUN/CREATININE RATIO 11; CALCIUM 8.2 MG/DL (8.5-10.1); CARBON DIOXIDE 23 MMOL/L (21-32); CHLORIDE 104 MMOL/L (98-107); GFR ESTIMATED > 60; GLUCOSE 98 MG/DL (70-105); POTASSIUM 3.2 MMOL/L (3.6-5.0); SODIUM 140 MMOL/L (135-145); TOTAL PROTEIN 6.2 GM/DL (6.4-8.2)
[2017-05-30] MEDS: CEFEPIME 2 GM/NS 50 ML IVPB IV SCH ×4 (05:17→17:34)
--- NOTE | 2017-05-30 08:17 | History & Physicial ---
History of Present Illness History of Present Illness Reason for visit/HPI vomiting coffee ground material. Recent gallbladder surgery. Alzheimer's disease. Patient nonverbal. Patient in fpc and was vomiting coffee ground material. Blood tests ordered and White blood cell count 18,000 elevated. Patient sent out to emergency room. CAT scan shows pneumonia. Patient previously had seizure with probable aspiration. Patient admitted Date of Admission May 29, 2017 at 15:19 Time Seen by Provider: 08:10 I consulted on this patient on 05/30/17 08:13 Attending Physician Manjeet Johnson DO Admitting Physician Manjeet Johnson DO Consult Allergies and Home Medications Allergies Coded Allergies: Penicillins (Verified Allergy, Unknown, 07/30/07) Home Medications Bisacodyl 10 Mg Supp.rect, 10 MG RC DAILY PRN for CONSTIPATION-4TH LINE, ( Reported) Magnesium Hydroxide 400 Mg/5 Ml Oral.susp, 30 ML PO DAILY PRN for CONSTIPATION- 7TH LINE, (Reported) Potassium Chloride 20 Meq/15 Ml Liquid, 10 MEQ PO DAILY, (Reported) 7.5ML OF 20MEQ/15ML Sertraline HCl 50 Mg Tablet, 50 MG PO HS, (Reported) Tramadol HCl 50 Mg Tablet, 50 MG PO Q12H PRN for ABDOMINAL PAIN, #20 Prescribed by: ALYSSA FUENTES on 05/27/17 1443 Past Aylbbon-Mrkzdd-Kuhyiq Hx Patient Social History Marrital Status: Employed/Student: unemployed Alcohol Use: Denies Use Recreational Drug Use: No Smoking Status: Former Smoker Physical Abuse Screen: No Sexual Abuse: No Recent Foreign Travel: No Contact w/other who traveled: No Recent Hopitalizations: No Recent Infectious Disease Expo: No Seasonal Allergies Seasonal Allergies: No Surgeries HX Surgeries: Yes (Catatact sx) Surgeries: Eye Surgery Respiratory Hx Respiratory Disorders: No Cardiovascular Hx Cardiovascular Disorders: Yes Neurological Hx Neurological Disorders: Yes (Alzheimer's) Neurological Disorders: Dementia Reproductive System Hx Reproductive Disorders: No Genitourinary Hx Genitourinary Disorders: No Gastrointestinal Hx Gastrointestinal Disorders: No Gastrointestinal Disorders: Chronic Constipation Musculoskeletal Hx Musculoskeletal Disorders: No Endocrine Hx Endocrine Disorders: No HEENT HX ENT Disorders: Yes HEENT Disorders: Cataract Loss of Vision: Denies Hearing Impairment: Denies Cancer Hx Cancer: No Psychosocial Hx Psychiatric Problems: No Behavioral Health Disorders: Depression Integumentary HX Skin/Integumentary Disorder: No Blood Transfusions Hx Blood Disorders: No Family Medical History Family Hx: Asthma 19 MOTHER FH: heart disease 19 MOTHER Constitutional: weakness EENTM: no symptoms reported Respiratory: no symptoms reported Cardiovascular: no symptoms reported Gastrointestinal: vomiting, other (a few ground material) Genitourinary: no symptoms reported Physical Exam Vital Signs Vital Sign - Last 12Hours 05/29/17 05/29/17 15:32 18:50 Temp 97.5 Pulse 86 Resp 18 B/P (MAP) 143/113 Pulse Ox 95 O2 Delivery Room Air Capillary Refill : Less Than 3 Seconds General Appearance: No Apparent Distress Eyes: Bilateral Eye Normal Inspection HEENT: Normal ENT Inspection Neck: Full Range of Motion, Normal Inspection Respiratory: Chest Non Tender, Lungs Clear, Normal Breath Sounds, No Accessory Muscle Use, No Respiratory Distress Cardiovascular: Regular Rate, Rhythm, No Murmur Gastrointestinal: Non Tender, Soft Assessment/Plan Assessment and Plan leukocytosis. Aspiration pneumonia. Alzheimer's disease. Recent gallbladder surgery. Vomiting coffee ground material. Problems: Clinical Quality Measures DVT/VTE Risk/Contraindication: Risk Factor Score Per Nursin RFS Level Per Nursing on Admit: 2=Moderate MANJEET JOHNSON DO May 30, 2017 08:16
[2017-05-30 08:30] VITALS: BP 155/88
[2017-05-30] MEDS ORDERED: BISACODYL 10 MG SUPP (DULCOLAX) PR NR (08:30)
[2017-05-30] MEDS ORDERED: KCL 10 MEQ TAB (MICRO K) PO NR (08:30)
[2017-05-30] MEDS: ENOXAPARIN 40 MG/0.4 ML (LOVENOX) SYR SC SCH (09:00)
[2017-05-30] MEDS ORDERED: BISA10SU58 RC (09:10)
[2017-05-30] MEDS ORDERED: ONDA4TAB10 PO (09:10)
[2017-05-30] MEDS ORDERED: CLOT15CR6 TOP (09:10)
[2017-05-30] MEDS ORDERED: TRAM50TA2 PO (09:10)
[2017-05-30] MEDS ORDERED: MENT71OI TP (09:21)
--- NOTE | 2017-05-30 14:15 | Progress Note-Standard ---
Standard Progress Note Progress Notes/Assess & Plan Date Seen by Provider: May 30, 2017 Time Seen by Provider: 12:40 Progress/Assessment & Plan readmitted with constipation and nonresolution of pneumonia. No bile leak on CT scan. Minimal postoperative tenderness around the incisions.we'll continue to observe. Final Diagnosis constipation. ALYSSA FUENTES MD May 30, 2017 2:15 pm
[2017-05-30 16:00] VITALS: BP 164/82
[2017-05-30] MEDS: LEVOFLOXACIN 750 MG/D5W 150 ML (PRE-MIX) IV SCH (18:26)
[2017-05-30 19:34] VITALS: BP 156/80
[2017-05-30] MEDS: ACETAMINOPHEN 500 MG TAB (TYLENOL) PO PRN (20:20)
[2017-05-31] VITALS: BP 157/99
[2017-05-31] MEDS: ACETAMINOPHEN 500 MG TAB (TYLENOL) PO PRN ×2 (03:43→12:58)
[2017-05-31 04:00] VITALS: BP 152/86
[2017-05-31] MEDS: CEFEPIME 2 GM/NS 50 ML IVPB IV SCH ×4 (05:33→17:50)
[2017-05-31 06:27] LABS: RED BLOOD COUNT 3.8 10^6/uL (4.35-5.85); RED CELL DISTRIBUTION WIDTH 13.3 % (10.0-14.5); WHITE BLOOD COUNT 16.1 10^3/uL (4.3-11.0)
[2017-05-31 06:40] LABS: ANION GAP 8 MMOL/L (5-14); BLOOD UREA NITROGEN 5 MG/DL (7-18); BUN/CREATININE RATIO 8; CALCIUM 8.3 MG/DL (8.5-10.1); CARBON DIOXIDE 22 MMOL/L (21-32); CHLORIDE 106 MMOL/L (98-107); CREATININE SERUM 0.61 MG/DL (0.60-1.30); GFR ESTIMATED > 60; GLUCOSE 103 MG/DL (70-105); POTASSIUM 3.8 MMOL/L (3.6-5.0); SODIUM 136 MMOL/L (135-145)
--- NOTE | 2017-05-31 07:40 | Progress Note (SOAP) ---
Subjective Time Seen by Provider: 07:35 Subjective/Events-last exam pneumonia. Dementia. Recent gallbladder surgery. Vomiting. Patient has stopped vomiting. Patient has taken some fluids yesterday. White blood cell count has increased. Patient breathing good. Patient nonverbal. Objective Exam Vital Signs Date Time Temp Pulse Resp B/P (MAP) Pulse Ox O2 Delivery O2 Flow Rate FiO2 05/31/17 06:35 96 Room Air 05/31/17 04:00 98.4 86 22 152/86 96 Room Air 05/31/17 01:00 81 05/31/17 00:00 99.0 82 20 157/99 93 Room Air 05/30/17 20:30 Room Air 05/30/17 19:54 98 Room Air 05/30/17 19:34 99.6 99 20 156/80 97 Room Air 05/30/17 19:10 113 05/30/17 16:00 99.1 104 20 164/82 94 Room Air 05/30/17 12:00 100.0 108 22 94 Room Air 05/30/17 08:30 98.6 77 16 155/88 96 Room Air 05/30/17 08:00 96 Room Air I & O 05/31/17 07:00 Intake Total 320 ml Balance 320 ml Capillary Refill : Less Than 3 Seconds General Appearance: No Apparent Distress, WD/WN HEENT: Normal ENT Inspection Neck: Full Range of Motion, Normal Inspection Respiratory: Chest Non Tender, Lungs Clear, Normal Breath Sounds, No Accessory Muscle Use, No Respiratory Distress Cardiovascular: Regular Rate, Rhythm, No Murmur Gastrointestinal: non tender, soft Results Lab Laboratory Tests 05/31/17 05:34 Laboratory Tests 05/31/17 05:34: White Blood Count 16.1H, Red Blood Count 3.80L, Hemoglobin 12.6, Hematocrit 39, Mean Corpuscular Volume 103H, Mean Corpuscular Hemoglobin 33, Mean Corpuscular Hemoglobin Concent 32, Red Cell Distribution Width 13.3, Platelet Count 201, Mean Platelet Volume 12.0H, Sodium Level 136, Potassium Level 3.8, Chloride Level 106, Carbon Dioxide Level 22, Anion Gap 8, Blood Urea Nitrogen 5L, Creatinine 0.61, Estimat Glomerular Filtration Rate > 60, BUN/Creatinine Ratio 8 , Glucose Level 103, Calcium Level 8.3L Microbiology 05/29/17 Blood Culture - Preliminary, Resulted No growth Radiology MED REC#: [id number] PT STATUS: ADM Stefan : 1955 PHYSICIAN: LAURA RODRIGUEZ APRN ADMIT DATE: 05/29/17 Signed Date of Exam: 05/29/17 CT ABDOMEN/PELVIS W PROCEDURE: CT abdomen and pelvis with contrast. TECHNIQUE: Multiple contiguous axial images were obtained through the abdomen and pelvis after administration of intravenous contrast. INDICATION: Coffee ground emesis. FINDINGS: The lung bases demonstrate some patchy opacities within the lingula and the right middle lobe which are not significantly changed from the patient's prior examination. There is no pleural or pericardial effusion. Liver demonstrates no evidence of a focal intrahepatic abnormality. The patient appears to be status post an interval cholecystectomy. There is no free fluid near the gallbladder fossa. There is no abnormal biliary dilatation. The spleen is normal in size. Pancreas unremarkable. There is no adrenal mass. The kidneys appear nonobstructed. The small and large bowel are normal in caliber without evidence of obstruction. There is a large degree of stool demonstrated at the level of the rectum. This is, however, improved from the previous exam. There is no focal abnormal bowel thickening or focal inflammatory fat stranding demonstrated within the omentum or the mesentery. No abscess is demonstrated. There is air within the urinary bladder suggesting recent catheterization. Aorta is normal in caliber. No acute osseous abnormalities are demonstrated. There are multilevel degenerative changes present within the spine. IMPRESSION: 1. Interval operative changes of cholecystectomy with no abnormal fluid within the gallbladder fossa within the pelvis. There is no abscess or free intraperitoneal air demonstrated. Small degree of gas within the soft tissues of the abdomen appears to be related to recent surgery. 2. Large degree of stool remains within the rectum though this is improved from the prior examination. No bowel obstruction is evident. 3. Gas within the urinary bladder is presumably related to recent catheterization. 4. No focal inflammatory fat stranding or free fluid demonstrated within the abdomen or pelvis. No obstructive process demonstrated. Dictated by: Dictated on workstation # [id number] Dict: 05/29/171741 Trans: 05/29/171825 Interpreted by: MAKAYLA PASTRANA MD Electronically signed by: MAKAYLA PASTRANA MD 05/29/17 1826 Assessment/Plan Assessment/Plan Assess & Plan/Chief Complaint aspiration pneumonia. Seizure history. Dementia. Vomiting. Increase White blood cell count today. Patient starting to take fluids. Clinical Quality Measures DVT/VTE Risk/Contraindication: Risk Factor Score Per Nursin RFS Level Per Nursing on Admit: 2=Moderate RHONDA JOHNSON DO May 31, 2017 07:40
--- NOTE | 2017-05-31 08:03 | Diagnostic Imaging Report ---
EXAM: CHEST 1 VIEW, AP/PA ONLY INDICATION: Pneumonia. COMPARISON: Chest radiograph 05/29/2017. FINDINGS: Normal heart size and pulmonary vascularity. No focal pulmonary opacity, pleural effusion or pneumothorax. No acute osseous findings. No significant change. IMPRESSION: No acute cardiopulmonary findings. Dictated by: Dictated on workstation # [id number]
[2017-05-31 08:49] VITALS: BP 167/91
[2017-05-31] MEDS: ENOXAPARIN 40 MG/0.4 ML (LOVENOX) SYR SC SCH (09:22)
[2017-05-31 12:00] VITALS: BP 154/63
[2017-05-31] MEDS: NS W/KCL 40 MEQ/L 1,000 ML IV SCH (12:38)
--- NOTE | 2017-05-31 15:46 | Progress Note-Standard ---
Standard Progress Note Progress Notes/Assess & Plan Date Seen by Provider: May 31, 2017 Time Seen by Provider: 15:46 Progress/Assessment & Plan readmitted with constipation and nonresolution of pneumonia. No bile leak on CT scan. Minimal postoperative tenderness around the incisions.we'll continue to observe. improving. Bowel movements resumed. No vomiting. Final Diagnosis pneumonia. Constipation ALYSSA FUENTES MD May 31, 2017 3:46 pm
[2017-05-31 16:28] VITALS: BP 130/86
[2017-05-31] MEDS: LEVOFLOXACIN 750 MG/D5W 150 ML (PRE-MIX) IV SCH (20:00)
[2017-05-31 20:13] VITALS: BP 140/84
[2017-05-31] MEDS ORDERED: LEVOFLOXACIN 750 MG TAB (LEVAQUIN) PO SCH (21:00)
[2017-06-01 00:10] VITALS: BP 141/86
[2017-06-01] MEDS: NS W/KCL 40 MEQ/L 1,000 ML IV SCH ×2 (00:59→08:13)
[2017-06-01 03:50] VITALS: BP 153/32
[2017-06-01] MEDS: CEFEPIME 2 GM/NS 50 ML IVPB IV SCH ×4 (05:13→18:07)
[2017-06-01 06:11] LABS: BASOPHILS % (AUTO) 0 % (0-10); EOSINOPHILS # (AUTO) 0.5 10^3/uL (0.0-0.3); EOSINOPHILS % (AUTO) 4 % (0-10); LYMPHOCYTES # (AUTO) 1.2 X 10^3 (1.0-4.0); LYMPHOCYTES % (AUTO) 9 % (12-44); MEAN CORPUSCULAR HEMOGLOBIN 34 PG (25-34); MEAN CORPUSCULAR HGB CONC 34 G/DL (32-36); MEAN CORPUSCULAR VOLUME 100 FL (80-99); MEAN PLATELET VOLUME 11.8 FL (7.4-10.4); MONOCYTES # (AUTO) 1.7 X 10^3 (0.0-1.0); MONOCYTES % (AUTO) 12 % (0-12); NEUTROPHILS # (AUTO) 10.6 X 10^3 (1.8-7.8); NEUTROPHILS % (AUTO) 76 % (42-75); PLATELET COUNT 228 10^3/uL (130-400); RED BLOOD COUNT 3.97 10^6/uL (4.35-5.85); RED CELL DISTRIBUTION WIDTH 13.2 % (10.0-14.5)
[2017-06-01 06:32] LABS: ANION GAP 12 MMOL/L (5-14); BLOOD UREA NITROGEN 6 MG/DL (7-18); BUN/CREATININE RATIO 8; CALCIUM 8.9 MG/DL (8.5-10.1); CARBON DIOXIDE 20 MMOL/L (21-32); CHLORIDE 106 MMOL/L (98-107); CREATININE SERUM 0.74 MG/DL (0.60-1.30); GFR ESTIMATED > 60; GLUCOSE 106 MG/DL (70-105); POTASSIUM 4.1 MMOL/L (3.6-5.0); SODIUM 138 MMOL/L (135-145)
[2017-06-01] MEDS: ENOXAPARIN 40 MG/0.4 ML (LOVENOX) SYR SC SCH (08:13)
[2017-06-01 08:42] VITALS: BP 159/108
--- NOTE | 2017-06-01 09:59 | Progress Note-Standard ---
Standard Progress Note Progress Notes/Assess & Plan Date Seen by Provider: Jun 01, 2017 Time Seen by Provider: 09:50 Progress/Assessment & Plan readmitted with constipation and nonresolution of pneumonia. No bile leak on CT scan. Minimal postoperative tenderness around the incisions.we'll continue to observe. improving. Bowel movements resumed. No vomiting. no major concerns. Oral intake improving. Final Diagnosis constipation ALYSSA FUENTES MD Jun 01, 2017 9:59 am
[2017-06-01 12:00] VITALS: BP 158/100
--- NOTE | 2017-06-01 12:56 | Progress Note (SOAP) ---
Subjective Subjective Date Seen by Provider: Jun 01, 2017 Time Seen by Provider: 12:25 61 yo F no overnight events. Tries to talk but unable to understand what she is trying to say. at bedside - reports she seems to be improving. No new complaints. He is happy her WBC are trending down. Review of Systems ROS Unable to Obtain: pt non verbal; denies below General: No Night Sweats HEENT: No Head Aches Pulmonary: No Dyspnea, No Cough Cardiovascular: No: Chest Pain, Palpitations Gastrointestinal: Abdominal Pain (maybe), No: Nausea, Vomiting Neurological: Confusion, Weakness, No: Change in speech Objective Exam Vital Signs Vital Signs Date Time Temp Pulse Resp B/P (MAP) Pulse Ox O2 Delivery O2 Flow Rate FiO2 06/01/17 10:12 Room Air 06/01/17 08:42 97.2 94 20 159/108 94 06/01/17 07:05 97 Room Air 06/01/17 07:00 82 06/01/17 06:57 89 97 21 06/01/17 03:50 97.2 81 20 153/32 97 Room Air 06/01/17 01:00 90 06/01/17 00:10 98.5 95 22 141/86 99 Room Air 05/31/17 20:13 99.6 108 20 140/84 97 Room Air 05/31/17 20:00 Room Air 05/31/17 19:00 106 05/31/17 18:43 Room Air 05/31/17 16:28 99.6 116 20 130/86 95 Room Air 05/31/17 14:32 98.4 05/31/17 13:00 86 05/31/17 12:58 98.4 I & O 06/01/17 07:00 Intake Total 1072 ml Balance 1072 ml General Appearance: No Apparent Distress, WD/WN Eyes: Bilateral Eye EOMI, Bilateral Eye PERRL HEENT: Normal ENT Inspection Neck: Full Range of Motion, Normal Inspection Respiratory: Chest Non Tender, Lungs Clear, Normal Breath Sounds, No Accessory Muscle Use, No Respiratory Distress Cardiovascular: Regular Rate, Rhythm, No Murmur Gastrointestinal: Non Tender, Soft Extremity: Normal Capillary Refill, Normal Inspection Neurologic/Psychiatric: Alert Skin: Normal Color, Warm/Dry Results Lab Laboratory Tests 06/01/17 05:42: White Blood Count 14.0H, Red Blood Count 3.97L, Hemoglobin 13.4, Hematocrit 40, Mean Corpuscular Volume 100H, Mean Corpuscular Hemoglobin 34, Mean Corpuscular Hemoglobin Concent 34, Red Cell Distribution Width 13.2, Platelet Count 228, Mean Platelet Volume 11.8H, Neutrophils (%) (Auto) 76H, Lymphocytes (%) (Auto) 9L, Monocytes (%) (Auto) 12, Eosinophils (%) (Auto) 4, Basophils (%) (Auto) 0, Neutrophils # (Auto) 10.6H, Lymphocytes # (Auto) 1.2, Monocytes # (Auto) 1.7H, Eosinophils # (Auto) 0.5H, Basophils # (Auto) 0.0, Sodium Level 138, Potassium Level 4.1, Chloride Level 106, Carbon Dioxide Level 20L, Anion Gap 12, Blood Urea Nitrogen 6L, Creatinine 0.74, Estimat Glomerular Filtration Rate > 60, BUN/ Creatinine Ratio 8, Glucose Level 106H, Calcium Level 8.9 Microbiology 05/29/17 Blood Culture - Preliminary, Resulted No growth Assessment/Plan Assessment/Plan Assessment/Plan 61 yo F aspiration pneumonia- levoquin, cefepime w/leukocytosis- improving; recheck in AM h/o Seizure - none recently Dementia- progressive, unable to effectively communicate verbally. Vomiting- improved Yeast skin infection- nystatin s/p cholecystectomy-05/07/17 Dr. Grimm following along case. No surgical intervention indicated. DVT ppx: lovenox Dispo: if continue to improve will plan to d/c back to [facility] in next day or 2. Problems: Clinical Quality Measures DVT/VTE Risk/Contraindication: Risk Factor Score Per Nursin RFS Level Per Nursing on Admit: 2=Moderate SAW GONZALEZ MD Jun 01, 2017 12:55
[2017-06-01] MEDS: NYSTATIN CREAM (MYCOSTATIN) 30 GM TUBE TP SCH ×2 (15:12→20:04)
[2017-06-01 16:16] VITALS: BP 176/80
[2017-06-01] MEDS: LEVOFLOXACIN 750 MG/D5W 150 ML (PRE-MIX) IV SCH (20:04)
[2017-06-01 20:52] VITALS: BP 162/80
[2017-06-02] VITALS: BP 150/93
[2017-06-02 04:00] VITALS: BP 136/85
[2017-06-02] MEDS: NS W/KCL 40 MEQ/L 1,000 ML IV SCH ×2 (04:01→18:30)
[2017-06-02 05:57] LABS: BASOPHILS # (AUTO) 0.1 10^3/uL (0.0-0.1); BASOPHILS % (AUTO) 0 % (0-10); EOSINOPHILS # (AUTO) 0.5 10^3/uL (0.0-0.3); EOSINOPHILS % (AUTO) 4 % (0-10); LYMPHOCYTES # (AUTO) 1.3 X 10^3 (1.0-4.0); LYMPHOCYTES % (AUTO) 11 % (12-44); MEAN CORPUSCULAR HEMOGLOBIN 32 PG (25-34); MEAN CORPUSCULAR HGB CONC 32 G/DL (32-36); MEAN CORPUSCULAR VOLUME 102 FL (80-99); MEAN PLATELET VOLUME 11.6 FL (7.4-10.4); MONOCYTES # (AUTO) 1.5 X 10^3 (0.0-1.0); MONOCYTES % (AUTO) 12 % (0-12); NEUTROPHILS # (AUTO) 9.1 X 10^3 (1.8-7.8); NEUTROPHILS % (AUTO) 73 % (42-75); PLATELET COUNT 242 10^3/uL (130-400); RED BLOOD COUNT 4.07 10^6/uL (4.35-5.85); RED CELL DISTRIBUTION WIDTH 13.6 % (10.0-14.5); WHITE BLOOD COUNT 12.4 10^3/uL (4.3-11.0)
[2017-06-02] MEDS: CEFEPIME 2 GM/NS 50 ML IVPB IV SCH ×4 (06:08→18:30)
[2017-06-02 06:14] LABS: ALBUMIN 3.3 GM/DL (3.2-4.5); ANION GAP 10 MMOL/L (5-14); BLOOD UREA NITROGEN 7 MG/DL (7-18); BUN/CREATININE RATIO 9; CALCIUM 8.9 MG/DL (8.5-10.1); CARBON DIOXIDE 21 MMOL/L (21-32); CHLORIDE 108 MMOL/L (98-107); CREATININE SERUM 0.74 MG/DL (0.60-1.30); GFR ESTIMATED > 60; GLUCOSE 109 MG/DL (70-105); MAGNESIUM 1.8 MG/DL (1.8-2.4); PHOSPHORUS 3.5 MG/DL (2.3-4.7); POTASSIUM 4.2 MMOL/L (3.6-5.0); SODIUM 139 MMOL/L (135-145)
[2017-06-02 08:00] VITALS: BP 179/77
[2017-06-02] MEDS: NYSTATIN CREAM (MYCOSTATIN) 30 GM TUBE TP SCH ×3 (09:23→20:23)
[2017-06-02] MEDS: ENOXAPARIN 40 MG/0.4 ML (LOVENOX) SYR SC SCH (09:23)
--- NOTE | 2017-06-02 11:05 | Progress Note (SOAP) ---
Subjective Subjective Date Seen by Provider: Jun 02, 2017 Time Seen by Provider: 11:00 61 yo F no overnight events. Ate a slice of pizza with her last night. Afebrile WBC trending down Review of Systems ROS Unable to Obtain: pt non verbal; denies below General: No Night Sweats HEENT: No Head Aches Pulmonary: No Dyspnea, No Cough Cardiovascular: No: Chest Pain, Palpitations Gastrointestinal: No: Abdominal Pain, Nausea, Vomiting Neurological: Confusion, Weakness, No: Change in speech Objective Exam Vital Signs Vital Signs Date Time Temp Pulse Resp B/P (MAP) Pulse Ox O2 Delivery O2 Flow Rate FiO2 06/02/17 08:00 97.6 76 20 179/77 90 Room Air 06/02/17 07:00 81 06/02/17 04:00 98.0 85 18 136/85 94 Room Air 06/02/17 01:00 87 06/02/17 00:00 97.1 87 22 150/93 97 Room Air 06/01/17 20:52 99.5 87 20 162/80 97 Room Air 06/01/17 20:00 Room Air 06/01/17 19:00 94 06/01/17 16:16 99.1 97 20 176/80 97 06/01/17 13:00 76 06/01/17 12:00 97.6 88 18 158/100 96 I & O 06/02/17 07:00 Intake Total 1884 ml Balance 1884 ml General Appearance: No Apparent Distress, WD/WN Eyes: Bilateral Eye EOMI, Bilateral Eye PERRL HEENT: Normal ENT Inspection Neck: Full Range of Motion, Normal Inspection Respiratory: Chest Non Tender, Lungs Clear, Normal Breath Sounds, No Accessory Muscle Use, No Respiratory Distress Cardiovascular: Regular Rate, Rhythm, No Murmur Gastrointestinal: Non Tender, Soft Extremity: Normal Capillary Refill, Normal Inspection Neurologic/Psychiatric: Alert, Other (cries, smiles inappropriately- dementia is progressing.) Skin: Normal Color, Warm/Dry Results Lab Laboratory Tests 06/02/17 05:18: White Blood Count 12.4H, Red Blood Count 4.07L, Hemoglobin 13.2, Hematocrit 42, Mean Corpuscular Volume 102H, Mean Corpuscular Hemoglobin 32, Mean Corpuscular Hemoglobin Concent 32, Red Cell Distribution Width 13.6, Platelet Count 242, Mean Platelet Volume 11.6H, Neutrophils (%) (Auto) 73, Lymphocytes (%) (Auto) 11L, Monocytes (%) (Auto) 12, Eosinophils (%) (Auto) 4, Basophils (%) (Auto) 0, Neutrophils # (Auto) 9.1H, Lymphocytes # (Auto) 1.3, Monocytes # (Auto) 1.5H, Eosinophils # (Auto) 0.5H, Basophils # (Auto) 0.1, Sodium Level 139, Potassium Level 4.2, Chloride Level 108H, Carbon Dioxide Level 21, Anion Gap 10, Blood Urea Nitrogen 7, Creatinine 0.74, Estimat Glomerular Filtration Rate > 60, BUN/ Creatinine Ratio 9, Glucose Level 109H, Calcium Level 8.9, Phosphorus Level 3.5 , Magnesium Level 1.8, Albumin 3.3 Microbiology 05/29/17 Blood Culture - Preliminary, Resulted Micrococcus Species See Comments Assessment/Plan Assessment/Plan Assessment/Plan 61 yo F aspiration pneumonia- levoquin, cefepime w/leukocytosis- improving; h/o Seizure - none recently Dementia- progressive, unable to effectively communicate verbally. Vomiting- improved Yeast skin infection- nystatin s/p cholecystectomy-05/07/17 Dr. Grimm following along case. No surgical intervention indicated. DVT ppx: lovenox Dispo: plan to d/[facility] back to [facility] tomorrow 06/03/17 Problems: Clinical Quality Measures DVT/VTE Risk/Contraindication: Risk Factor Score Per Nursin RFS Level Per Nursing on Admit: 2=Moderate SAW GONZALEZ MD Jun 02, 2017 11:05
[2017-06-02 12:00] VITALS: BP 135/95
[2017-06-02 16:00] VITALS: BP 132/88
[2017-06-02 20:00] VITALS: BP 127/91
[2017-06-02] MEDS: LEVOFLOXACIN 750 MG/D5W 150 ML (PRE-MIX) IV SCH (20:23)
[2017-06-03] VITALS: BP 160/87
[2017-06-03 04:00] VITALS: BP 128/84
[2017-06-03] MEDS: CEFEPIME 2 GM/NS 50 ML IVPB IV SCH ×2 (05:30)
--- NOTE | 2017-06-03 08:09 | Progress Note (SOAP) ---
Subjective Time Seen by Provider: 08:05 Subjective/Events-last exam aspiration pneumonia. Nausea and vomiting better. Dementia. Yeast around rectum. Patient taking foods and fluids. Patient doing better. Plan to discharge today with Lotrisone cream Objective Exam Vital Signs Date Time Temp Pulse Resp B/P (MAP) Pulse Ox O2 Delivery O2 Flow Rate FiO2 06/03/17 04:00 97.7 91 22 128/84 91 Room Air 06/03/17 01:00 84 06/03/17 00:00 98.0 87 20 160/87 93 Room Air 06/02/17 20:00 98.0 94 18 127/91 97 Room Air 06/02/17 19:00 115 06/02/17 16:00 97.2 91 18 132/88 98 Room Air 06/02/17 13:00 78 06/02/17 12:00 98.6 84 20 135/95 95 Room Air I & O 06/03/17 07:00 Intake Total 1260 ml Balance 1260 ml Capillary Refill : Less Than 3 Seconds General Appearance: No Apparent Distress, WD/WN HEENT: Normal ENT Inspection Neck: Full Range of Motion, Normal Inspection Respiratory: Chest Non Tender, Lungs Clear, Normal Breath Sounds, No Accessory Muscle Use, No Respiratory Distress Cardiovascular: Regular Rate, Rhythm, No Murmur Gastrointestinal: normal bowel sounds, non tender, soft Results Lab Microbiology 05/29/17 Blood Culture - Preliminary, Resulted Micrococcus Species See Comments Assessment/Plan Assessment/Plan Assess & Plan/Chief Complaint aspiration pneumonia. Seizure history. Dementia. Vomiting. Increase White blood cell count today. Patient starting to take fluids.. . 06/03/17. Aspiration pneumonia. Seizure history. Dementia area. No vomiting and eating now. Leukocytosis better. Patient needing better. Discharge today Clinical Quality Measures DVT/VTE Risk/Contraindication: Risk Factor Score Per Nursin RFS Level Per Nursing on Admit: 2=Moderate RHONDA JOHNSON DO Jun 03, 2017 8:09 am
[2017-06-03 08:30] VITALS: BP 172/81
[2017-06-03] MEDS: NYSTATIN CREAM (MYCOSTATIN) 30 GM TUBE TP SCH ×2 (08:50→13:34)
[2017-06-03] MEDS: ENOXAPARIN 40 MG/0.4 ML (LOVENOX) SYR SC SCH (08:50)
[2017-06-03] MEDS ORDERED: CEFD300C3 PO (11:14)
[2017-06-03 12:00] VITALS: BP 142/90
[2017-06-03 16:00] VITALS: BP 124/95
[2017-06-03 17:16] VITALS: BP 124/95
--- NOTE | 2017-06-05 07:39 | Discharge Summary ---
Diagnosis/Chief Complaint Date of Admission Jun 01, 2017 at 12:35 Date of Discharge Jun 03, 2017 at 17:21 Discharge Time: 07:35 Admission Diagnosis Admission Diagnosis leukocytosis. Aspiration pneumonia. Alzheimer's disease. Recent gallbladder surgery. Vomiting coffee ground material. Discharge Diagnosis nausea and vomiting. Leukocytosis. Hypertension. Constipation. Aspiration pneumonia. Alzheimer's disease. DO NOT RESUSCITATE status. Recent cholecystectomy Reason Hospital Visit vomiting coffee ground material. Recent gallbladder surgery. Alzheimer's disease. Patient nonverbal. Patient in [facility] and was vomiting coffee ground material. Blood tests ordered and White blood cell count 18,000 elevated. Patient sent out to emergency room. CAT scan shows pneumonia. Patient previously had seizure with probable aspiration. Patient admitted Discharge Summary Consultations surgeon Discharge Physical Examination Allergies: Coded Allergies: Penicillins (Verified Allergy, Unknown, 07/30/07) Vitals & I&Os Vital Signs Date Time Temp Pulse Resp B/P (MAP) Pulse Ox O2 Delivery O2 Flow Rate FiO2 06/03/17 17:16 88 16 124/95 98 Room Air 06/03/17 16:00 97.7 06/01/17 06:57 21 Hospital Course patient in hospital improved. Patient able to eat. No vomiting. Patient transferred back to [facility] Labs (last 24 hrs) Laboratory Tests 05/29/17 15:30: White Blood Count 18.1H, Red Blood Count 4.50, Hemoglobin 14.8, Hematocrit 45, Mean Corpuscular Volume 100H, Mean Corpuscular Hemoglobin 33, Mean Corpuscular Hemoglobin Concent 33, Red Cell Distribution Width 12.8, Platelet Count 228, Mean Platelet Volume 11.8H, Neutrophils (%) (Auto) 84H, Lymphocytes (%) (Auto) 8L, Monocytes (%) (Auto) 8, Eosinophils (%) (Auto) 0, Basophils (%) (Auto) 0, Neutrophils # (Auto) 15.2H, Lymphocytes # (Auto) 1.4, Monocytes # (Auto) 1.5H, Eosinophils # (Auto) 0.0, Basophils # (Auto) 0.0, Neutrophils % (Manual) 78, Lymphocytes % (Manual) 22, Monocytes % (Manual) 0, Eosinophils % (Manual) 0, Basophils % (Manual) 0, Band Neutrophils 0, Blood Morphology Comment NORMAL, Sodium Level 138, Potassium Level 3.1L, Chloride Level 101, Carbon Dioxide Level 30, Anion Gap 7, Blood Urea Nitrogen 9, Creatinine 0.65, Estimat Glomerular Filtration Rate > 60, BUN/Creatinine Ratio 14, Glucose Level 113H, Lactic Acid Level 1.57, Calcium Level 8.2L, Total Bilirubin 0.6, Aspartate Amino Transf (AST/SGOT) 35H, Alanine Aminotransferase (ALT/SGPT) 37, Alkaline Phosphatase 87, Total Protein 6.7, Albumin 3.5, Lipase 40 05/29/17 15:40: Urine Color YELLOW, Urine Clarity CLEAR, Urine pH 7, Urine Specific [place] 1.010L, Urine Protein 1+H, Urine Glucose (UA) NEGATIVE, Urine Ketones 3+H, Urine Nitrite NEGATIVE, Urine Bilirubin NEGATIVE, Urine Urobilinogen NORMAL, Urine Leukocyte Esterase NEGATIVE, Urine RBC (Auto) 1+H, Urine RBC RARE, Urine WBC 0-2, Urine Crystals NONE, Urine Bacteria NEGATIVE, Urine Casts NONE, Urine Mucus SMALLH, Urine Culture Indicated NO 05/30/17 04:20: White Blood Count 14.4H, Red Blood Count 4.09L, Hemoglobin 13.4, Hematocrit 41, Mean Corpuscular Volume 101H, Mean Corpuscular Hemoglobin 33, Mean Corpuscular Hemoglobin Concent 32, Red Cell Distribution Width 12.9, Platelet Count 200, Mean Platelet Volume 12.1H, Neutrophils (%) (Auto) 81H, Lymphocytes (%) (Auto) 9L, Monocytes (%) (Auto) 10, Eosinophils (%) (Auto) 1, Basophils (%) (Auto) 0, Neutrophils # (Auto) 11.6H, Lymphocytes # (Auto) 1.3, Monocytes # (Auto) 1.4H, Eosinophils # (Auto) 0.1, Basophils # (Auto) 0.0, Sodium Level 140, Potassium Level 3.2L, Chloride Level 104, Carbon Dioxide Level 23, Anion Gap 13, Blood Urea Nitrogen 8, Creatinine 0.70, Estimat Glomerular Filtration Rate > 60, BUN/ Creatinine Ratio 11, Glucose Level 98, Calcium Level 8.2L, Total Bilirubin 0.6, Aspartate Amino Transf (AST/SGOT) 25, Alanine Aminotransferase (ALT/SGPT) 32, Alkaline Phosphatase 78, Total Protein 6.2L, Albumin 3.4 05/31/17 05:34: White Blood Count 16.1H, Red Blood Count 3.80L, Hemoglobin 12.6, Hematocrit 39, Mean Corpuscular Volume 103H, Mean Corpuscular Hemoglobin 33, Mean Corpuscular Hemoglobin Concent 32, Red Cell Distribution Width 13.3, Platelet Count 201, Mean Platelet Volume 12.0H, Sodium Level 136, Potassium Level 3.8, Chloride Level 106, Carbon Dioxide Level 22, Anion Gap 8, Blood Urea Nitrogen 5L, Creatinine 0.61, Estimat Glomerular Filtration Rate > 60, BUN/Creatinine Ratio 8 , Glucose Level 103, Calcium Level 8.3L 06/01/17 05:42: White Blood Count 14.0H, Red Blood Count 3.97L, Hemoglobin 13.4, Hematocrit 40, Mean Corpuscular Volume 100H, Mean Corpuscular Hemoglobin 34, Mean Corpuscular Hemoglobin Concent 34, Red Cell Distribution Width 13.2, Platelet Count 228, Mean Platelet Volume 11.8H, Neutrophils (%) (Auto) 76H, Lymphocytes (%) (Auto) 9L, Monocytes (%) (Auto) 12, Eosinophils (%) (Auto) 4, Basophils (%) (Auto) 0, Neutrophils # (Auto) 10.6H, Lymphocytes # (Auto) 1.2, Monocytes # (Auto) 1.7H, Eosinophils # (Auto) 0.5H, Basophils # (Auto) 0.0, Sodium Level 138, Potassium Level 4.1, Chloride Level 106, Carbon Dioxide Level 20L, Anion Gap 12, Blood Urea Nitrogen 6L, Creatinine 0.74, Estimat Glomerular Filtration Rate > 60, BUN/ Creatinine Ratio 8, Glucose Level 106H, Calcium Level 8.9 06/02/17 05:18: White Blood Count 12.4H, Red Blood Count 4.07L, Hemoglobin 13.2, Hematocrit 42, Mean Corpuscular Volume 102H, Mean Corpuscular Hemoglobin 32, Mean Corpuscular Hemoglobin Concent 32, Red Cell Distribution Width 13.6, Platelet Count 242, Mean Platelet Volume 11.6H, Neutrophils (%) (Auto) 73, Lymphocytes (%) (Auto) 11L, Monocytes (%) (Auto) 12, Eosinophils (%) (Auto) 4, Basophils (%) (Auto) 0, Neutrophils # (Auto) 9.1H, Lymphocytes # (Auto) 1.3, Monocytes # (Auto) 1.5H, Eosinophils # (Auto) 0.5H, Basophils # (Auto) 0.1, Sodium Level 139, Potassium Level 4.2, Chloride Level 108H, Carbon Dioxide Level 21, Anion Gap 10, Blood Urea Nitrogen 7, Creatinine 0.74, Estimat Glomerular Filtration Rate > 60, BUN/ Creatinine Ratio 9, Glucose Level 109H, Calcium Level 8.9, Phosphorus Level 3.5 , Magnesium Level 1.8, Albumin 3.3 Microbiology 05/29/17 Blood Culture - Final, Complete Micrococcus Species See Comments Laboratory Tests 05/29/17 15:30 05/30/17 04:20 05/31/17 05:34 06/01/17 05:42 06/02/17 05:18 Pending Labs Microbiology Date/Time Source Procedure Growth Status 05/29/17 16:20 Peripheral Rt Hand Blood Culture - Final Micrococcus Species See Comments Complete 05/29/17 15:30 Peripheral Lt Hand Blood Culture - Final No growth Complete Laboratory Tests 05/29/17 15:30: White Blood Count 18.1, Red Blood Count 4.50, Hemoglobin 14.8, Hematocrit 45, Mean Corpuscular Volume 100, Mean Corpuscular Hemoglobin 33, Mean Corpuscular Hemoglobin Concent 33, Red Cell Distribution Width 12.8, Platelet Count 228, Mean Platelet Volume 11.8, Neutrophils (%) (Auto) 84, Lymphocytes (%) (Auto) 8, Monocytes (%) (Auto) 8, Eosinophils (%) (Auto) 0, Basophils (%) (Auto) 0, Neutrophils # (Auto) 15.2, Lymphocytes # (Auto) 1.4, Monocytes # (Auto) 1.5, Eosinophils # (Auto) 0.0, Basophils # (Auto) 0.0, Neutrophils % (Manual) 78, Lymphocytes % (Manual) 22, Monocytes % (Manual) 0, Eosinophils % (Manual) 0, Basophils % (Manual) 0, Band Neutrophils 0, Blood Morphology Comment NORMAL, Sodium Level 138, Potassium Level 3.1, Chloride Level 101, Carbon Dioxide Level 30, Anion Gap 7, Blood Urea Nitrogen 9, Creatinine 0.65, Estimat Glomerular Filtration Rate > 60, BUN/Creatinine Ratio 14, Glucose Level 113, Lactic Acid Level 1.57, Calcium Level 8.2, Total Bilirubin 0.6, Aspartate Amino Transf (AST/ SGOT) 35, Alanine Aminotransferase (ALT/SGPT) 37, Alkaline Phosphatase 87, Total Protein 6.7, Albumin 3.5, Lipase 40 05/29/17 15:40: Urine Color YELLOW, Urine Clarity CLEAR, Urine pH 7, Urine Specific [place] 1.010, Urine Protein 1+, Urine Glucose (UA) NEGATIVE, Urine Ketones 3+, Urine Nitrite NEGATIVE, Urine Bilirubin NEGATIVE, Urine Urobilinogen NORMAL, Urine Leukocyte Esterase NEGATIVE, Urine RBC (Auto) 1+, Urine RBC RARE, Urine WBC 0-2 , Urine Crystals NONE, Urine Bacteria NEGATIVE, Urine Casts NONE, Urine Mucus SMALL, Urine Culture Indicated NO 05/30/17 04:20: White Blood Count 14.4, Red Blood Count 4.09, Hemoglobin 13.4, Hematocrit 41, Mean Corpuscular Volume 101, Mean Corpuscular Hemoglobin 33, Mean Corpuscular Hemoglobin Concent 32, Red Cell Distribution Width 12.9, Platelet Count 200, Mean Platelet Volume 12.1, Neutrophils (%) (Auto) 81, Lymphocytes (%) (Auto) 9, Monocytes (%) (Auto) 10, Eosinophils (%) (Auto) 1, Basophils (%) (Auto) 0, Neutrophils # (Auto) 11.6, Lymphocytes # (Auto) 1.3, Monocytes # (Auto) 1.4, Eosinophils # (Auto) 0.1, Basophils # (Auto) 0.0, Sodium Level 140, Potassium Level 3.2, Chloride Level 104, Carbon Dioxide Level 23, Anion Gap 13, Blood Urea Nitrogen 8, Creatinine 0.70, Estimat Glomerular Filtration Rate > 60, BUN/ Creatinine Ratio 11, Glucose Level 98, Calcium Level 8.2, Total Bilirubin 0.6, Aspartate Amino Transf (AST/SGOT) 25, Alanine Aminotransferase (ALT/SGPT) 32, Alkaline Phosphatase 78, Total Protein 6.2, Albumin 3.4 05/31/17 05:34: White Blood Count 16.1, Red Blood Count 3.80, Hemoglobin 12.6, Hematocrit 39, Mean Corpuscular Volume 103, Mean Corpuscular Hemoglobin 33, Mean Corpuscular Hemoglobin Concent 32, Red Cell Distribution Width 13.3, Platelet Count 201, Mean Platelet Volume 12.0, Sodium Level 136, Potassium Level 3.8, Chloride Level 106, Carbon Dioxide Level 22, Anion Gap 8, Blood Urea Nitrogen 5, Creatinine 0.61, Estimat Glomerular Filtration Rate > 60, BUN/Creatinine Ratio 8 , Glucose Level 103, Calcium Level 8.3 06/01/17 05:42: White Blood Count 14.0, Red Blood Count 3.97, Hemoglobin 13.4, Hematocrit 40, Mean Corpuscular Volume 100, Mean Corpuscular Hemoglobin 34, Mean Corpuscular Hemoglobin Concent 34, Red Cell Distribution Width 13.2, Platelet Count 228, Mean Platelet Volume 11.8, Neutrophils (%) (Auto) 76, Lymphocytes (%) (Auto) 9, Monocytes (%) (Auto) 12, Eosinophils (%) (Auto) 4, Basophils (%) (Auto) 0, Neutrophils # (Auto) 10.6, Lymphocytes # (Auto) 1.2, Monocytes # (Auto) 1.7, Eosinophils # (Auto) 0.5, Basophils # (Auto) 0.0, Sodium Level 138, Potassium Level 4.1, Chloride Level 106, Carbon Dioxide Level 20, Anion Gap 12, Blood Urea Nitrogen 6, Creatinine 0.74, Estimat Glomerular Filtration Rate > 60, BUN/ Creatinine Ratio 8, Glucose Level 106, Calcium Level 8.9 06/02/17 05:18: White Blood Count 12.4, Red Blood Count 4.07, Hemoglobin 13.2, Hematocrit 42, Mean Corpuscular Volume 102, Mean Corpuscular Hemoglobin 32, Mean Corpuscular Hemoglobin Concent 32, Red Cell Distribution Width 13.6, Platelet Count 242, Mean Platelet Volume 11.6, Neutrophils (%) (Auto) 73, Lymphocytes (%) (Auto) 11 , Monocytes (%) (Auto) 12, Eosinophils (%) (Auto) 4, Basophils (%) (Auto) 0, Neutrophils # (Auto) 9.1, Lymphocytes # (Auto) 1.3, Monocytes # (Auto) 1.5, Eosinophils # (Auto) 0.5, Basophils # (Auto) 0.1, Sodium Level 139, Potassium Level 4.2, Chloride Level 108, Carbon Dioxide Level 21, Anion Gap 10, Blood Urea Nitrogen 7, Creatinine 0.74, Estimat Glomerular Filtration Rate > 60, BUN/ Creatinine Ratio 9, Glucose Level 109, Calcium Level 8.9, Phosphorus Level 3.5, Magnesium Level 1.8, Albumin 3.3 Discharge Home Medications: Active Scripts Active Cefdinir 300 Mg Capsule 300 Mg PO BID 3 Days Reported Calmoseptine Ointment (Menthol/Lanolin/Calamine/Znox) 71 Gm Oint TP Q2H PRN APPLY TO MAY AREA Clotrimazole-Betamethasone Crm (Clotrimazole/Betamethasone Dip) 15 Gm Cream..g. TOP TID APPLY EVERY SHIFT FOR YEAST TO BUTTOCKS UNTIL HEALED Ondansetron HCl 4 Mg Tablet 4 Mg PO Q6H PRN Tramadol HCl 50 Mg Tablet 50 Mg PO Q12H PRN Dulcolax (Bisacodyl) 10 Mg Supp.rect 10 Mg RC DAILY PRN Sertraline HCl 50 Mg Tablet 50 Mg PO HS Potassium Chloride 20 Meq/15 Ml Liquid 10 Meq PO DAILY 7.5ML OF 20MEQ/15ML Milk of Magnesia (Magnesium Hydroxide) 400 Mg/5 Ml Oral.susp 30 Ml PO DAILY PRN Instructions to patient/family Please see electonic discharge instructions given to patient. Clinical Quality Measures DVT/VTE Risk/Contraindication: Risk Factor Score Per Nursin RFS Level Per Nursing on Admit: 2=Moderate RHONDA JOHNSON DO Jun 05, 2017 07:39
== END 2017-06-03 17:21 | DRG 178 ==
LOC: EDUNIT# 14:44 → ER 14:45 → UNDOADMOB 15:19 → 4TH 15:19 → OBSVTOIN 06-01 12:35
PROVIDERS: ADMIT Family Medicine; ATTEND Family Medicine
DX: J69.0 Pneumonitis due to inhalation of food and vomit (principal); D72.829 Elevated white blood cell count, unspecified; R11.2 Nausea with vomiting, unspecified; B37.89 Other sites of candidiasis; K92.0 Hematemesis; Z87.891 Personal history of nicotine dependence; G30.9 Alzheimer's disease, unspecified; F02.80 Dementia in other diseases classified elsewhere, unspecified severity, without behavioral disturbance, psychotic disturbance, mood disturbance, and anxiety; Z66 Do not resuscitate; K59.09 Other constipation; Z87.898 Personal history of other specified conditions; Z98.890 Other specified postprocedural states; R10.84 Generalized abdominal pain; N28.9 Disorder of kidney and ureter, unspecified
CPT/HCPCS: 36415; 71010; 74020; 74177; 80048; 80053; 80069; 81000; 83605; 83690; 83735; 85007; 85025; 85027; 87040; 94664; 94760; 96361; 96374; 96375; G0378

== ENCOUNTER → 2017-05-29 | Outpatient (CLI) | payer MEDICARE, MEDICAID ==
[~2017-05-29] MED LIST changes: +BISA10SU58 RC; +CLOT15CR6 TOP; +MAGN400O7 PO; +MENT71OI TP; +ONDA4TAB10 PO; +POTA20LI PO; +SERT50TA9 PO; +TRAM50TA2 PO
--- NOTE | 2017-05-29 16:12 | Diagnostic Imaging Report ---
INDICATION: Abdominal pain. KUB 11:42 a.m. Bowel gas pattern is normal. There is no intraperitoneal free air. There are no pathologic masses or calcifications seen. IMPRESSION: Negative supine upright abdomen series. Dictated by: Dictated on workstation # [id number]
== END ==
LOC: RAD 11:04
PROVIDERS: ATTEND Family Medicine
DX: R10.84 Generalized abdominal pain (principal); N28.9 Disorder of kidney and ureter, unspecified
CPT/HCPCS: 74020

== ENCOUNTER 2017-09-30 10:17 | Emergency (ER) | payer MEDICARE, MEDICAID ==
[~2017-09-30] VITALS: Ht 170.2 cm; Wt 61.0 kg
[~2017-09-30 10:17] MED LIST changes: +CEFD300C3 PO; +CLOT15CR6 TOP; +MENT71OI TP; +ONDA4TAB10 PO
[2017-09-30 11:06] VITALS: BP 106/75
--- NOTE | 2017-09-30 11:09 | Diagnostic Imaging Report ---
PROCEDURE: CT head and CT cervical spine without contrast. TECHNIQUE: Multiple contiguous axial images were obtained through the brain and cervical spine without the use of intravenous contrast. Sagittal and coronal reformations through the cervical spine were then performed. INDICATION: Fall. FINDINGS: CT HEAD: There is no intracranial hemorrhage, edema or mass effect. There is extensive periventricular and deep white matter hypodensities compatible with chronic microvascular ischemic changes. No hydrocephalus. No extra-axial fluid collection is seen. The calvarium, and visualized portions of the paranasal sinuses and orbits appear grossly unremarkable. CT CERVICAL SPINE: There is straightening of the cervical spine curvature. The alignment of the posterior spinal line however is satisfactory. There is slight motion artifact seen around C7 level and apparent slight vertebral body height loss at this level is probably secondary to motion artifact. No definite fracture is seen. Good alignment at the facet joints is noted. Facet joint arthropathy in the mid and lower cervical spine levels is noted. There is also mild posterior osteophytes at C6/7 level. IMPRESSION: CT HEAD: Chronic ischemic changes. No intracranial hemorrhage. CT CERVICAL SPINE: There is mild motion artifact around the lower cervical spine which could obscure a subtle abnormality. No definite fracture is seen. Dictated by: Dictated on workstation # [id number]
--- NOTE | 2017-09-30 11:26 | Diagnostic Imaging Report ---
AP view of the pelvis. INDICATION: Fall. FINDINGS: No fracture, dislocation, or radiopaque foreign body seen. Mild degenerative changes of the hip and SI joints are noted. There is a 5-mm rectangular moderate-density lesion projecting over the right lower quadrant. This could be related to ingested material or potentially a foreign body in or outside the patient. IMPRESSION: No fracture seen. Dictated by: Dictated on workstation # [id number]
--- NOTE | 2017-09-30 11:37 | ED Fall/Injury ---
General Chief Complaint: Trauma-Non Activation Stated Complaint: FALL Nursing Triage Note: TO ROOM PER EMS FROM [facility] ST[facility]FF REPORT ANOTHER RESIDENT TRIDED TO HELP HER UP FROM HER W/C CAUSING TO FALL AND HIT L SIDE OF FACE NO LOC. BRUSING AND SWELLING TO L SIDE OF FACE. Source: family, EMS, [facility] records Exam Limitations: clinical condition History of Present Illness Time seen by provider: 10:19 Initial Comments This 62-year-old with dementia is brought to the emergency room via EMS after having a fall in the [facility]. Apparently another resident tried to help get her up out of a wheelchair. Patient fell striking her left face. She has some erythema but no other apparent injury. Patient does not express any pain but she is primarily nonverbal because of her dementia. Allergies and Home Medications Allergies Coded Allergies: Penicillins (Verified Allergy, Unknown, 07/30/07) Home Medications Bisacodyl 10 Mg Supp.rect, 10 MG RC DAILY PRN for CONSTIPATION-4TH LINE, ( Reported) Clotrimazole/Betamethasone Dip 15 Gm Cream..g., TOP TID, (Reported) APPLY EVERY SHIFT FOR YEAST TO BUTTOCKS UNTIL HEALED Magnesium Hydroxide 400 Mg/5 Ml Oral.susp, 30 ML PO DAILY PRN for CONSTIPATION- 7TH LINE, (Reported) Menthol/Lanolin/Calamine/Znox 71 Gm Oint, TP Q2H PRN for [place], (Reported) APPLY TO MAY AREA Ondansetron HCl 4 Mg Tablet, 4 MG PO Q6H PRN for NAUSEA/VOMITING-1ST LINE, ( Reported) Potassium Chloride 20 Meq/15 Ml Liquid, 10 MEQ PO DAILY, (Reported) 7.5ML OF 20MEQ/15ML Sertraline HCl 50 Mg Tablet, 50 MG PO HS, (Reported) Tramadol HCl 50 Mg Tablet, 50 MG PO Q12H PRN for PAIN-MODERATE, (Reported) Constitutional: no symptoms reported Eyes: No Symptoms Reported Ears, Nose, Mouth, Throat: no symptoms reported Respiratory: no symptoms reported Cardiovascular: no symptoms reported Gastrointestinal: no symptoms reported Genitourinary: no symptoms reported Musculoskeletal: no symptoms reported Skin: see HPI Psychiatric/Neurological: See HPI Past Menulvy-Qdtjsr-Ypjigt Hx Patient Social History Alcohol Use: Denies Use Recreational Drug Use: No Smoking Status: Unknown if Ever Smoked Recent Foreign Travel: No Contact w/Someone Who Travel: No Recent Infectious Disease Expo: No Recent Hopitalizations: No Seasonal Allergies Seasonal Allergies: No Surgeries History of Surgeries: Yes (Catatact sx) Surgeries: Eye Surgery Respiratory History of Respiratory Disorde: No Cardiovascular History of Cardiac Disorders: Yes Neurological History of Neurological Disord: Yes (Alzheimer's) Neurological Disorders: Dementia Reproductive System Hx Reproductive Disorders: No Gastrointestinal History of Gastrointestinal Di: Yes Gastrointestinal Disorders: Chronic Constipation Musculoskeletal History of Musculoskeletal Dis: No Endocrine History of Endocrine Disorders: No HEENT History of HEENT Disorders: Yes HEENT Disorders: Cataract Loss of Vision: Denies Hearing Impairment: Denies Cancer History of Cancer: No Psychosocial History of Psychiatric Problem: Yes Behavioral Health Disorders: Depression Integumentary History of Skin or Integumenta: No Blood Transfusions History of Blood Disorders: No Family Medical History Family Medial History: Asthma 19 MOTHER FH: heart disease 19 MOTHER Physical Exam Vital Signs Vital Sign - Last 12Hours 09/30/17 09/30/17 10:17 11:51 Temp 96.2 Pulse 71 Resp 18 B/P (MAP) 131/118 Pulse Ox 97 O2 Delivery Room Air Capillary Refill : Less Than 3 Seconds General Appearance: WD/WN, no apparent distress HEENT: PERRL/EOMI, normal ENT inspection, other (mild erythema of the left cheek. Teeth intact) Neck: non-tender, supple, normal inspection, other (in c-collar) Cardiovascular: regular rate, rhythm, no edema, no murmur, other Respiratory: lungs clear, normal breath sounds, no respiratory distress, no accessory muscle use Gastrointestinal: normal bowel sounds, non tender, soft Extremities: non-tender, normal inspection, no pedal edema, other (patient did say "ouch" when left leg was rotated but not when flexed) Neurologic/Psychiatric: alert, other (severe cognitive deficits from dementia) Skin: normal color, warm/dry Agustin Coma Score Best Eye Response: (4) Open Spontaneously Best Verbal Response: (3) Inappropriate Words Best Motor Response: (4) Withdraws to Pain [place] Total: 11 (at baseline per her 's report) Progress/Results/Core Measures Results/Orders My Orders Orders - EMILY BECKER MD Ct Head/Cervical Spine Wo (09/30/17 10:26) Pelvis (09/30/17 10:26) Vital Signs/I&O Vital Sign - Last 12Hours 09/30/17 09/30/17 09/30/17 10:17 11:06 11:51 Temp 96.2 Pulse 71 71 Resp 18 18 B/P (MAP) 131/118 106/75 Pulse Ox 97 O2 Delivery Room Air Blood Pressure Mean: 85 Progress Note : Time: 12:06 Progress Note Options discussed with patient's who requested CT be performed since patient cannot report symptoms. Imaging studies revealed no significant injury to the pelvis, head, or cervical spine. Patient appears to be comfortable. states he is unable to transport patient back to [facility] in his vehicle. I spoke with the dermatology sales representative from the [facility] who stated they are unable to transport the patient and requested EMS services. She was aware that EMS would possibly charge the facility and the export administrator was okay with that. Diagnostic Imaging Diagonstic Imaging: CT Plain Films/CT/US/NM/MRI: c-spine, head Comments CT head and C-spine viewed by me and report reviewed. See report below: NAME: TRICIA YANEZ [facility] REC#: [id number] PT STATUS: REG ER : 1955 PHYSICIAN: EMILY BECKER MD ADMIT DATE: 09/30/17/ER Signed Date of Exam: 09/30/17 CT HEAD/CERVICAL SPINE WO PROCEDURE: CT head and CT cervical spine without contrast. TECHNIQUE: Multiple contiguous axial images were obtained through the brain and cervical spine without the use of intravenous contrast. Sagittal and coronal reformations through the cervical spine were then performed. INDICATION: Fall. FINDINGS: CT HEAD: There is no intracranial hemorrhage, edema or mass effect. There is extensive periventricular and deep white matter hypodensities compatible with chronic microvascular ischemic changes. No hydrocephalus. No extra-axial fluid collection is seen. The calvarium, and visualized portions of the paranasal sinuses and orbits appear grossly unremarkable. CT CERVICAL SPINE: There is straightening of the cervical spine curvature. The alignment of the posterior spinal line however is satisfactory. There is slight motion artifact seen around C7 level and apparent slight vertebral body height loss at this level is probably secondary to motion artifact. No definite fracture is seen. Good alignment at the facet joints is noted. Facet joint arthropathy in the mid and lower cervical spine levels is noted. There is also mild posterior osteophytes at C6/7 level. IMPRESSION: CT HEAD: Chronic ischemic changes. No intracranial hemorrhage. CT CERVICAL SPINE: There is mild motion artifact around the lower cervical spine which could obscure a subtle abnormality. No definite fracture is seen. Dictated by: Dictated on workstation # [id number] Dict: 09/30/17 1050 Trans: 09/30/17 1125 Interpreted by: HUMPHREY GELLER MD Electronically signed by: HUMPHREY GELLER MD 09/30/17 1125 Diagonstic Imaging: Xray Plain Films/CT/US/NM/MRI: pelvis Comments Pelvis x-ray viewed by me and report reviewed. See report below: NAME: TRICIA YANEZ [facility] REC#: [id number] PT STATUS: REG ER : 1955 PHYSICIAN: EMILY BECKER MD ADMIT DATE: 09/30/17/ER Draft Date of Exam:09/30/17 PELVIS AP view of the pelvis. INDICATION: Fall. FINDINGS: No fracture, dislocation, or radiopaque foreign body seen. Mild degenerative changes of the hip and SI joints are noted. There is a 5-mm rectangular moderate-density lesion projecting over the right lower quadrant. This could be related to ingested material or potentially a foreign body in or outside the patient. IMPRESSION: No fracture seen. Dictated on workstation # [id number] Dict: 09/30/17 1105 Trans: 09/30/17 1125 [id number] Interpreted by: HUMPHREY GELLER MD Departure Impression Impression: Primary Impression: Fall on same level Qualified Codes: W18.30XA - Fall on same level, unspecified, initial encounter Additional Impression: Minor head injury Qualified Codes: S00.90XA - Unspecified superficial injury of unspecified part of head, initial encounter Disposition: 01 HOME, SELF-CARE Condition: Stable Departure-Patient Inst. Decision time for Depature: 11:38 Referrals: RHONDA JOHNSON DO (PCP/Family) Primary Care Physician Patient Instructions: Minor Head Injury (DC) Add. Discharge Instructions: Contact your primary care provider or return to emergency room if you have any further problems or concerns. All discharge instructions reviewed with patient and/or family. Voiced understanding. EMILY BECKER MD Sep 30, 2017 11:37
[2017-09-30 11:51] VITALS: BP 124/93
== END 2017-09-30 12:31 | disposition home or self-care (01) ==
LOC: EDUNIT# 10:17 → ER 10:19
DX: S09.90XA Unspecified injury of head, initial encounter (principal); G30.9 Alzheimer's disease, unspecified; F03.90 Unspecified dementia, unspecified severity, without behavioral disturbance, psychotic disturbance, mood disturbance, and anxiety; F32.9 Major depressive disorder, single episode, unspecified; Z87.19 Personal history of other diseases of the digestive system; Z82.49 Family history of ischemic heart disease and other diseases of the circulatory system; W18.30XA Fall on same level, unspecified, initial encounter; Y92.129 Unspecified place in nursing home as the place of occurrence of the external cause
CPT/HCPCS: 70450; 72125; 72170; 99283

== ENCOUNTER → 2018-04-16 | Outpatient (CLI) | payer MEDICARE, MEDICAID ==
[~2018-04-16] MED LIST changes: -POTA20LI PO; +POTA20LI3 PO
--- NOTE | 2018-04-16 13:58 | Diagnostic Imaging Report ---
INDICATION: Presurgical evaluation AP and lateral views of the head are obtained. There is no evidence of fracture or malalignment. There may be minimal mural thickening in the lateral right maxillary sinus however no air-fluid levels identified and remainder of paranasal sinuses are clear. Temporomandibular joints are unremarkable in appearance. No abnormal lytic or sclerotic focus is identified. IMPRESSION: No acute abnormalities detected. Dictated by: Dictated on workstation # [id number]
== END ==
LOC: RAD 11:56
PROVIDERS: ATTEND Specialist
DX: Z01.818 Encounter for other preprocedural examination (principal)
CPT/HCPCS: 70250

== ENCOUNTER 2018-05-22 08:56 | Outpatient (CLI) | payer MEDICARE, MEDICAID ==
[~2018-05-22] VITALS: Ht 160 cm; Wt 52.9 kg
[2018-05-22] MEDS ORDERED: SERT100T8 PO (09:17)
[2018-05-22] MEDS ORDERED: POLY17PO6 PO (09:17)
== END 2018-05-22 12:03 | disposition home or self-care (01) ==
LOC: PREOP 08:56
PROVIDERS: ATTEND Specialist
DX: Z01.818 Encounter for other preprocedural examination (principal)

== ENCOUNTER 2018-06-02 10:02 | Day surgery (SDC) | payer MEDICARE, MEDICAID ==
[~2018-06-02] VITALS: Ht 160 cm; Wt 52.9 kg
[~2018-06-02 10:02] MED LIST changes: +POLY17PO6 PO; +SERT100T8 PO
[2018-06-02] MEDS ORDERED: LACTATED RINGERS 1,000 ML IV PRN (10:09)
[2018-06-02] MEDS ORDERED: CLINDAMYCIN 600 MG/50 ML IVPB 50 ML IV ONE (10:15)
[2018-06-02 10:20] VITALS: BP 130/104
[2018-06-02] MEDS ORDERED: ROPIVACAINE 5MG/ML 30ML VIAL ONE (10:32)
[2018-06-02] MEDS ORDERED: LIDOCAINE/EPI 2% 1:100,00 (XYLOCAINE) 20 ML VIAL ONE (10:32)
[2018-06-02] MEDS ORDERED: SEVOFLURANE (ULTANE) 15 ML INHAL SOLN ONE (11:00)
[2018-06-02] MEDS ORDERED: ONDANSETRON 4 MG/2 ML (SDV) Z0FRAN ONE (11:00)
[2018-06-02] MEDS ORDERED: fentaNYL INJECTION 100 MCG/2 ML AMP ONE (11:00)
[2018-06-02] MEDS ORDERED: DEXAMETHASONE 10 MG/ML (DECADRON) 1 ML VIAL ONE (11:00)
[2018-06-02] MEDS ORDERED: LIDOCAINE PF 2% 5 ML (XYLOCAINE) VIAL ONE (11:00)
[2018-06-02] MEDS ORDERED: LIDOCAINE JELLY 2% (XYLOCAINE) 5 ML TUBE ONE (11:00)
[2018-06-02] MEDS ORDERED: ROCURONIUM 10 MG/ML 5 ML SYRINGE IV ONE (11:00)
[2018-06-02] MEDS ORDERED: GLYCOPYRROLATE 0.2 MG/ML (ROBINUL) 2 ML VIAL ONE (11:00)
[2018-06-02] MEDS ORDERED: proPOfol 200 MG/20 ML (DIPRIVAN) VIAL IV ONE (11:00)
--- NOTE | 2018-06-02 11:06 | Progress Note-Pre Operative ---
Pre-Operative Progress Note H&P Reviewed The H&P was reviewed, patient examined and no changes noted. Date Seen by Provider: Jun 02, 2018 Time Seen by Provider: :45 Date H&P Reviewed: Jun 02, 2018 Time H&P Reviewed: :45 Pre-Operative Diagnosis: carious and nonfuntional 2,3-12.14,18,19-30 JAMES ALVES DDS Jun 02, 2018 11:06 am
[2018-06-02] MEDS ORDERED: DEXAMETHASONE 4 MG/ML SDV (DECADRON) IV SCH (11:15)
[2018-06-02] MEDS ORDERED: HYDROmorphone 1 MG/ML (DILAUDID) 1 ML SYRINGE IV PRN (11:15)
[2018-06-02] MEDS ORDERED: HYDROcodone/APAP 7.5MG-325 MG/15 ML (LORTAB) UDC PO PRN (11:15)
[2018-06-02] MEDS ORDERED: PHENYLEPHRINE 0.5% NASAL SPR (NEO-SYNEPHRINE) REG ONE (11:31)
[2018-06-02] MEDS ORDERED: NEOSTIGMINE 1 MG/ML 5 ML SYRINGE ONE (12:11)
--- NOTE | 2018-06-02 12:36 | Progress Note-Post Operative ---
Post-Operative Progess Note Surgeon (s)/Search Engine Optimization Manager (s) Surgeon JAMES ALVES DDS Search Engine Optimization Manager: randall barksdale Pre-Operative Diagnosis carious and nonfuntional 2,3-12.14,18,19-30 Post-Operative Diagnosis same Procedure & Operative Findings Date of Procedure 06/02/18 Procedure Performed/Findings extraction of aforementioned teeth upper and lower alveloplasty Anesthesia Type geta Estimated Blood Loss Estimated blood loss (mL): 100cc Specimens/Packing Specimens Removed none Packing: none JAMES ALVES DDS Jun 02, 2018 12:36 pm
--- NOTE | 2018-06-02 12:39 | Anesthesia-General Post-Op ---
General Patient Condition Mental Status/LOC: Same as Preop Cardiovascular: Satisfactory Nausea/Vomiting: Absent Respiratory: Satisfactory Pain: Controlled Complications: Absent Post Op Complications Complications None Follow Up Care/Instructions Patient Instructions None needed. Anesthesia/Patient Condition Patient Condition Patient is doing well, no complaints, stable vital signs, no apparent adverse anesthesia problems. No complications reported per nursing. PITER LAZO CRNA Jun 02, 2018 12:39
[2018-06-02] MEDS ORDERED: morphine INJ 10 MG/ML 1ML (SYR OR VIAL) IVP PRN (13:00)
[2018-06-02] MEDS ORDERED: LABETALOL HCL 20 MG/4 ML VIAL ONE (13:00)
[2018-06-02] MEDS ORDERED: ONDANSETRON 4 MG/2 ML (SDV) Z0FRAN IVP PRN (13:00)
[2018-06-02] MEDS ORDERED: LABETALOL HCL 20 MG/4 ML VIAL IV ONE (13:04)
[2018-06-02] MEDS ORDERED: LABETALOL HCL 20 MG/4 ML VIAL INJ ONE (14:00)
[2018-06-02 14:15] VITALS: BP 151/106
[2018-06-02 14:45] VITALS: BP 137/85
[2018-06-02 15:15] VITALS: BP 153/85
[2018-06-02 16:15] VITALS: BP 146/94
[2018-06-02] MEDS ORDERED: CLIN150C17 PO (16:28)
[2018-06-02] MEDS ORDERED: HYDR-757 PO (16:28)
[2018-06-02 17:00] VITALS: BP 149/103
--- NOTE | 2018-06-18 19:53 | OPERATIVE REPORT ---
DATE OF SERVICE: 06/02/2018 SERVICE: sausage meat trimmer. SURGEON: Dr. James Alves. PAPER SEALER: Jocelyn Vaz. COMPLICATIONS: There were no complications. BLOOD LOSS: Minimal. IV FLUIDS: She received approximately 650 mL of IV fluid. HISTORY OF PRESENT ILLNESS AND INDICATION FOR PROCEDURE: The patient is a 62-year-old white female who suffers from senile dementia/Alzheimer's. We have tried to evaluate her in the office, but she becomes uncooperative after speaking extensively with her family. It was determined she would best be served by having this procedure performed as an outpatient at [facility]. DESCRIPTION OF PROCEDURE: The patient was taken to the operating room and placed on the operating table. The appropriate monitors were placed. After this, a nasotracheal intubation was completed without difficulty. Once this was secured, the surgeon left the room, scrubbed, returned, donned sterile gowns and gloves and prepped and draped the patient in usual sterile fashion. After this, we deposited local anesthesia and around with bilateral mandibular blocks and maxillary infiltration. We also placed a throat pack. Next, we used a 15 blade to excise the mucosa in the maxilla and elevated a full-thickness mucoperiosteal flap. Then, teeth numbers 2, 3, 4, 5, 6, 7, 8, 9, 10, 11, 12 and 14 were removed without difficulty after luxating with a 301 elevator. The rough or irregular surfaces were smoothed with a bone file and then we closed with 3-0 chromic gut in a running fashion. Next, we turned our attention to the mandible where the exact same procedure was performed, which we elevated with full-thickness mucoperiosteal flap that is incised with a 15 blade. I was unable to luxate and I removed teeth numbers 18, 19, 20, 21, 22, 23, 24, 25, 26, 27, 28, 29 and 30. After this, we smoothed off any rough or irregular surfaces with a bone file and then copiously irrigated with normal saline and then performed an alveolectomy by removing approximately 5 mm of alveolar height. After this, we then closed with 3-0 chromic gut in a running fashion. The patient was allowed to emerge from her general anesthetic and she was then transported to the recovery room after being extubated with stable vital signs and pulse ox at 90%. Job ID: [id number] DocumentID: [id number] Dictated Date: 06/18/2018 11:59:[address] Date: 06/18/2018 19:52:44 Dictated By: JAMES ALVES DDS
== END 2018-06-02 17:10 ==
LOC: SDC 10:02
PROVIDERS: ATTEND Specialist
DX: K02.9 Dental caries, unspecified (principal); G30.1 Alzheimer's disease with late onset; F02.81 Dementia in other diseases classified elsewhere, unspecified severity, with behavioral disturbance; Z11.2 Encounter for screening for other bacterial diseases
CPT/HCPCS: 87081

== ENCOUNTER 2021-12-18 19:37 | Emergency (ER) | payer MEDICARE, MEDICAID ==
[~2021-12-18] VITALS: Ht 167 cm; Wt 68.0 kg
[~2021-12-18 19:37] MED LIST changes: +CLIN150C20 PO; +HYDR-4226 PO; +ONDA-105 PO; -ONDA4TAB10 PO; +SERT-413 PO; +SERT-414 PO; -SERT100T8 PO; -SERT50TA9 PO; -TRAM50TA2 PO
--- NOTE | 2021-12-18 19:42 | ED General ---
General Stated Complaint: LETHARGIC/FEVER Source of Information: Patient, Family Exam Limitations: No Limitations History of Present Illness Date Seen by Provider: Dec 18, 2021 Time Seen by Provider: 19:41 Initial Comments Tricia is a 66-year-old female who presents to the emergency department today with a chief complaint of altered mental status. [facility]DC reported to EMS that the patient has not had any food in 2 days. No oral intake whatsoever. They reported finding her altered this evening, temperature of 101. She was reportedly given Tylenol at 6:15 PM. Patient has a history of prior stroke. No reported traumas to EMS. On arrival the patient has her eyes closed but will intermittently flutter her eyelids open. She is nonverbal but according to the long term will "babble constantly". Unknown if the patient ambulates independently or not. She is observed to be moving all 4 extremities. Vital signs on arrival are relatively within normal limits. She is not hypote nsive or profoundly tachycardic or febrile. Sepsis work-up in progress. Review of systems unobtainable secondary to the patient is altered mental status. Timing/Duration: 1-2 Days Severity: Moderate Allergies and Home Medications Allergies Coded Allergies: Penicillins (Verified Allergy, Unknown, 05/22/18) levofloxacin (Verified Allergy, Unknown, 05/22/18) Patient Home Medication List Home Medication List Reviewed: Yes Bisacodyl (Dulcolax) 10 Mg Supp.rect, 10 MG RC DAILY PRN for CONSTIPATION-4TH LINE, (Reported) Entered as Reported by: VAMSI MAN on 05/30/17 0910 Cephalexin (Cephalexin) 500 Mg Tablet, 500 MG PO TID Prescribed by: JERED WATERS on 12/18/21 2248 Clindamycin HCl (Clindamycin HCl) 150 Mg Capsule, 150 MG PO QID Prescribed by: BIBI ARCEO on 06/02/18 1628 Clotrimazole/Betamethasone Dip (Clotrimazole-Betamethasone Crm) 15 Gm Cream..g., TOP TID, (Reported) Entered as Reported by: VAMSI MAN on 05/30/17 0910 Hydrocodone/Acetaminophen (Hydrocodone/Acetaminophen 5 MG/325 MG TAB) 1 Each Tablet, 0.5 EACH PO Q4H PRN for PAIN Prescribed by: BIBI ARCEO on 06/02/18 1628 Menthol/Lanolin/Calamine/Znox (Calmoseptine Ointment) 71 Gm Oint, TP Q2H PRN for GAULDING, (Reported) Entered as Reported by: VAMSI MAN on 05/30/17 0921 Polyethylene Glycol 3350 (Miralax) 17 Gm Powd.pack, 17 GM PO EVERY OTHER DAY, (Reported) Entered as Reported by: YESICA BLACK on 05/22/18 0917 Potassium Chloride (Potassium Chloride) 20 Meq/15 Ml Liquid, 10 MEQ PO DAILY, (Reported) Entered as Reported by: VAMSI MAN on 05/24/17 0844 Sertraline HCl (Sertraline HCl) 100 Mg Tablet, 100 MG PO HS, (Reported) Entered as Reported by: YESICA BLACK on 05/22/18 0917 Tramadol HCl (Tramadol HCl) 50 Mg Tablet, 50 MG PO Q12H PRN for PAIN-MODERATE, (Reported) Entered as Reported by: VAMSI MAN on 05/30/17 0910 Discontinued Medications Cephalexin (Cephalexin) 500 Mg Tablet, 500 MG PO TID Prescribed by: JERED WATERS on 12/18/21 2242 Review of Systems Review of Systems Constitutional: see HPI Unobtainable due to patient's AMS Past Deuminc-Ahhqfe-Lqydiw Hx Seasonal Allergies Seasonal Allergies: No Past Medical History Surgeries: Yes (Catatact sx) Eye Surgery, Gallbladder Respiratory: No Cardiac: Yes Neurological: Yes (Alzheimer's) Dementia Reproductive Disorders: No Sexually Transmitted Disease: No HIV/AIDS: No Gastrointestinal: Yes Chronic Constipation Musculoskeletal: No Endocrine: No HEENT: Yes Cataract Loss of Vision: Denies Hearing Impairment: Denies Cancer: No Psychosocial: Yes Depression Integumentary: No Blood Disorders: No Adverse Reaction/Blood Tranf: No Family Medical History Asthma 19 MOTHER FH: heart disease 19 MOTHER Physical Exam Vital Signs Vital Signs - First Documented 12/18/21 19:50 Temp 36.7 Pulse 86 Resp 18 B/P (MAP) 151/108 (122) Pulse Ox 94 O2 Delivery Room Air Capillary Refill : Height, Weight, BMI Height: 5'3.00" Weight: 116lbs. 9.0oz. 52.760543ub; 20.7 BMI Method:Stated General Appearance: No Apparent Distress, Cachetic, Thin Eyes: Bilateral Eye Other (Pinpoint pupils) HEENT: Other (Very dry oral mucosa) Neck: Normal Inspection Respiratory: Lungs Clear, Normal Breath Sounds, No Accessory Muscle Use, No Respiratory Distress Cardiovascular: Regular Rate, Rhythm, Normal Peripheral Pulses Gastrointestinal: Normal Bowel Sounds, Non Tender, Soft, Other (Nondistended) Extremity: Normal Capillary Refill, Normal Inspection, Normal Range of Motion, No Pedal Edema Neurologic/Psychiatric: Other (Altered mental status, does not respond to voice or vigorous stimuli) Skin: Normal Color, Warm/Dry Focused Exam Lactate Level 12/18/21 20:11: Lactic Acid Level 1.07 Lactic Acid Level Laboratory Tests Test 12/18/21 20:11 Lactic Acid Level 1.07 MMOL/L (0.50-2.00) Progress/Results/Core Measures Suspected Sepsis SIRS Temperature: Pulse: Respiratory Rate: Laboratory Tests 12/18/21 19:49: White Blood Count 10.6 Blood Pressure / Mean: 12/18/21 20:11: Lactic Acid Level 1.07 Laboratory Tests 12/18/21 19:49: Creatinine 0.87, INR Comment 1.0, Platelet Count 214, Total Bilirubin 0.4 Results/Orders Lab Results Laboratory Tests Test 12/18/21 19:49 12/18/21 19:59 12/18/21 20:02 12/18/21 20:11 Range/Units White Blood Count 10.6 4.3-11.0 10^3/uL Red Blood Count 4.35 3.80-5.11 10^6/uL Hemoglobin 14.9 11.5-16.0 g/dL Hematocrit 47 35-52 % Mean Corpuscular Volume 109 H 80-99 fL Mean Corpuscular Hemoglobin 34 25-34 pg Mean Corpuscular Hemoglobin Concent 31 L 32-36 g/dL Red Cell Distribution Width 13.0 10.0-14.5 % Platelet Count 214 130-400 10^3/uL Mean Platelet Volume 12.7 H 9.0-12.2 fL Immature Granulocyte % (Auto) 0 % Neutrophils (%) (Auto) 70 42-75 % Lymphocytes (%) (Auto) 19 12-44 % Monocytes (%) (Auto) 9 0-12 % Eosinophils (%) (Auto) 1 0-10 % Basophils (%) (Auto) 1 0-10 % Neutrophils # (Auto) 7.4 1.8-7.8 10^3/uL Lymphocytes # (Auto) 2.1 1.0-4.0 10^3/uL Monocytes # (Auto) 0.9 0.0-1.0 10^3/uL Eosinophils # (Auto) 0.2 0.0-0.3 10^3/uL Basophils # (Auto) 0.1 0.0-0.1 10^3/uL Immature Granulocyte # (Auto) 0.0 0.0-0.1 10^3/uL Prothrombin Time 13.5 12.2-14.7 SEC INR Comment 1.0 0.8-1.4 Activated Partial Thromboplast Time 36 H 24-35 SEC Sodium Level 150 H 135-145 MMOL/L Potassium Level 3.7 3.6-5.0 MMOL/L Chloride Level 116 H 98-107 MMOL/L Carbon Dioxide Level 21 21-32 MMOL/L Anion Gap 13 5-14 MMOL/L Blood Urea Nitrogen 25 H 7-18 MG/DL Creatinine 0.87 0.60-1.30 MG/DL Estimat Glomerular Filtration Rate 73 BUN/Creatinine Ratio 29 Glucose Level 134 H 70-105 MG/DL Calcium Level 9.2 8.5-10.1 MG/DL Corrected Calcium 9.4 8.5-10.1 MG/DL Total Bilirubin 0.4 0.1-1.0 MG/DL Aspartate Amino Transf (AST/SGOT) 27 5-34 U/L Alanine Aminotransferase (ALT/SGPT) 49 0-55 U/L Alkaline Phosphatase 73 40-136 U/L Total Protein 7.6 6.4-8.2 GM/DL Albumin 3.8 3.2-4.5 GM/DL Glucometer 131 H 70-110 MG/DL Influenza Type A (RT-PCR) Not Detected Not Detecte Influenza Type B (RT-PCR) Not Detected Not Detecte SARS-CoV-2 RNA (RT-PCR) Not Detected Not Detecte Lactic Acid Level 1.07 0.50-2.00 MMOL/L Test 12/18/21 20:39 Range/Units Urine Color YELLOW Urine Clarity CLOUDY Urine pH 6.0 5-9 Urine Specific [place] 1.020 1.016-1.022 Urine Protein TRACE H NEGATIVE Urine Glucose (UA) NEGATIVE NEGATIVE Urine Ketones NEGATIVE NEGATIVE Urine Nitrite POSITIVE H NEGATIVE Urine Bilirubin NEGATIVE NEGATIVE Urine Urobilinogen 0.2 < = 1.0 MG/DL Urine Leukocyte Esterase 2+ H NEGATIVE Urine RBC (Auto) TRACE-I H NEGATIVE Urine RBC 0-2 /HPF Urine WBC 10-25 H /HPF Urine Squamous Epithelial Cells 25-50 H /HPF Urine Crystals PRESENT H /LPF Urine Amorphous Sediment FEW LATHA URATES H /LPF Urine Bacteria MODERATE H /HPF Urine Casts NONE /LPF Urine Mucus NEGATIVE /LPF Urine Culture Indicated CULTURE PENDING Urine Opiates Screen NEGATIVE NEGATIVE Urine Oxycodone Screen NEGATIVE NEGATIVE Urine Methadone Screen NEGATIVE NEGATIVE Urine Propoxyphene Screen NEGATIVE NEGATIVE Urine Barbiturates Screen NEGATIVE NEGATIVE Ur Tricyclic Antidepressants Screen NEGATIVE NEGATIVE Urine Phencyclidine Screen NEGATIVE NEGATIVE Urine Amphetamines Screen NEGATIVE NEGATIVE Urine Methamphetamines Screen NEGATIVE NEGATIVE Urine Benzodiazepines Screen NEGATIVE NEGATIVE Urine Cocaine Screen NEGATIVE NEGATIVE Urine Cannabinoids Screen NEGATIVE NEGATIVE My Orders Orders - JERED WATERS MD Cbc With Automated Diff (12/18/21 19:40) Comprehensive Metabolic Panel (12/18/21 19:40) Blood Culture (12/18/21 19:40) Sputum Culture (12/18/21 19:40) Urinalysis (12/18/21 19:40) Urine Culture (12/18/21 19:40) Protime With Inr (12/18/21 19:40) Partial Thromboplastin Time (12/18/21 19:40) Chest 1 View, Ap/Pa Only (12/18/21 19:40) Ed Iv/Invasive Line Start (12/18/21 19:40) Ed Iv/Invasive Line Start (12/18/21 19:40) Vital Signs Adult Sepsis Patie Q15M (12/18/21 19:40) O2 (12/18/21 19:40) Remove Rings In Anticipation O (12/18/21 19:40) Lactic Acid Analyzer (12/18/21 19:40) Covid 19 Inhouse Test (12/18/21 19:40) Influenza A And B By Pcr (12/18/21 19:40) Isolation Central Supply Req (12/18/21 19:40) Naloxone Injection (Narcan Injection) (12/18/21 20:00) Covid 19 Inhouse Test (12/18/21 19:56) Ct Head Wo (12/18/21 20:14) Ceftriaxone 1 Gm Pre-Mix (Rocephin 1 Gm (12/18/21 21:30) Naloxone Injection (Narcan Injection) (12/18/21 21:30) Drug Screen Stat (Urine) (12/19/21 02:04) Medications Given in ED Current Medications Medications Dose Ordered Sig/Amy Route Start Time Stop Time Status Last Admin Dose Admin Ceftriaxone Sodium/Dextrose 50 ml @ 100 mls/hr ONCE ONCE IV 12/18/21 21:30 12/18/21 21:59 DC 12/18/21 22:13 100 MLS/HR Naloxone HCl 2 mg ONCE ONCE IV 12/18/21 20:00 12/18/21 20:01 DC 12/18/21 20:06 2 MG Naloxone HCl 2 mg ONCE ONCE IV 12/18/21 21:30 12/18/21 21:31 DC 12/18/21 22:13 2 MG Vital Signs/I&O 12/18/21 12/18/21 19:50 22:55 Temp 36.7 Pulse 86 75 Resp 18 16 B/P (MAP) 151/108 (122) 133/67 Pulse Ox 94 98 O2 Delivery Room Air Room Air 12/19/21 00:00 Intake Total 200 ml Balance 200 ml Capillary Refill : Progress Note #1: Time: 20:16 Progress Note No improvement in mental status after Narcan, 2mg. BP improved a little, however. Will continue to run EMS fluids and await laboratory studies. Progress Note #2: Time: 22:37 Progress Note Multiple reevaluations of the patient, she does seem to respond to pushes of Narcan. Her vital signs are stable. Her laboratory studies are all normal. Slightly dry, she did have a liter of normal saline. Urine was contaminated with squamous epithelial cells however nitrite positive, it will culture. I did go ahead and treat this. We will send home 5 days of antibiotics. She is protecting her airway her sats are 96/ 97% on room air. She has not had anything to eat or drink while in the department but I think as long as she is not given any further sedating medications at the long term she will do well. CT is unremarkable. She has no lateralizing signs. She does grimace and mumble a little bit. Blood pressure is good pulses good. She is afebrile.no clinical or objective findings to warrant further studies from the emergency department and certainly no indications for admission at this time. More awake at discharge - with transportation from the long term to take her home. Diagnostic Imaging Diagonstic Imaging: Xray Plain Films/CT/US/NM/MRI: chest Comments [facility], [place] NAME: TRICIA YANEZ [employer] REC#: [id number] PT STATUS: REG ER : 1955 PHYSICIAN: JERED WATERS MD ADMIT DATE: 12/18/21/ER Signed Date of Exam:12/18/21 CHEST 1 VIEW, AP/PA ONLY EXAMINATION: Chest 1 view HISTORY: Lethargy, fever COMPARISON: 05/31/2017 FINDINGS: Heart size and pulmonary vasculature are normal. The lungs are clear without consolidation, pleural effusion, or pneumothorax. The osseous structures are intact. IMPRESSION: 1. No acute radiographic abnormality in the chest. Dictated by: Dictated on workstation # [id number] Dict: 12/18/211999 Trans: 12/18/212011 [facility] [id number] Interpreted by: SAFIA NERI DO Electronically signed by: SAFIA NERI DO 12/18/212011 [facility], [place] NAME: TRICIA YANEZ [facility] REC#: [id number] PT STATUS: REG ER : 1955 PHYSICIAN: JERED WATERS MD ADMIT DATE: 12/18/21/ER Signed Date of Exam:12/18/21 CT HEAD WO EXAMINATION: CT head without contrast. TECHNIQUE: Multiple contiguous axial images were obtained through the brain without the use of intravenous contrast. All CT scans use one or more of the following dose optimizing techniques: automated exposure control, MA and/or KvP adjustment based on patient size and exam type or iterative reconstruction. HISTORY: Altered mental status COMPARISON: 09/30/2017 FINDINGS: Moderate diffuse cerebral volume loss with proportional enlargement of the ventricles and sulci. Moderate hypodensities throughout the supratentorial white matter posterior hemispheres. No acute intracranial hemorrhage or abnormal extra-axial fluid collections are present. Calcification of the intracranial ICAs. No hyperdense vessel. The calvarium is intact. The mastoid air cells are clear. There is fluid and mucosal thickening within the paranasal sinuses. Surgical changes from bilateral cataract repair. IMPRESSION: 1. No acute intracranial abnormality. 2. Chronic microangiopathy and volume loss. Dictated by: Dictated on workstation # [id number] Dict: 12/18/212053 Trans: 12/18/212109 [facility] [id number] Interpreted by: SAFIA NERI DO Electronically signed by: SAFIA NERI DO 12/18/212109 Departure Impression Primary Impression: Altered mental status Qualified Codes: R40.0 - Somnolence Additional Impressions: history of alzheimer's dementia Urinary tract infection Qualified Codes: N30.00 - Acute cystitis without hematuria Disposition: HOME, SELF-CARE Condition: Stable Departure-Patient Inst. Decision time for Depature: 22:41 Referrals: RHNODA JOHNSON DO (PCP/Family) Primary Care Physician Patient Instructions: Altered Mental Status (DC), Urinary Tract Infection, Adult (DC) Add. Discharge Instructions: Encourage fluids over the next 12 to 24 hours. Encourage nutrition. Please avoid any sedating medications whatsoever for the next 24 to 48 hours. Return to the emergency room for worsening signs of infection, decreasing level of alertness, and stable vital signs. Follow-up with Dr. Johnson tomorrow. Antibiotics for the next 5 days. Scripts Cephalexin (Cephalexin) 500 Mg Tablet 500 MG PO TID for 5 Days, #15 TAB Prov: JERED WATERS MD 12/18/21 Copy Copies To 1: RHONDA JOHNSON KATHRYN M MD Dec 18, 2021 19:41
[2021-12-18] MEDS ORDERED: NALOXONE 2 MG/2 ML (NARCAN) SYR IV ONE ×2 (20:00→21:30)
--- NOTE | 2021-12-18 20:01 | Diagnostic Imaging Report ---
EXAMINATION: Chest 1 view HISTORY: Lethargy, fever COMPARISON: 05/31/2017 FINDINGS: Heart size and pulmonary vasculature are normal. The lungs are clear without consolidation, pleural effusion, or pneumothorax. The osseous structures are intact. IMPRESSION: 1. No acute radiographic abnormality in the chest. Dictated by: Dictated on workstation # [id number]
[2021-12-18 20:23] LABS: BASOPHILS # (AUTO) 0.1 10^3/uL (0.0-0.1); BASOPHILS % (AUTO) 1 % (0-10); EOSINOPHILS # (AUTO) 0.2 10^3/uL (0.0-0.3); EOSINOPHILS % (AUTO) 1 % (0-10); HEMATOCRIT 47 % (35-52); HEMOGLOBIN 14.9 g/dL (11.5-16.0); LYMPHOCYTES # (AUTO) 2.1 10^3/uL (1.0-4.0); LYMPHOCYTES % (AUTO) 19 % (12-44); MEAN CORPUSCULAR HEMOGLOBIN 34 pg (25-34); MEAN CORPUSCULAR HGB CONC 31 g/dL (32-36); MEAN CORPUSCULAR VOLUME 109 fL (80-99); MEAN PLATELET VOLUME 12.7 fL (9.0-12.2); MONOCYTES # (AUTO) 0.9 10^3/uL (0.0-1.0); MONOCYTES % (AUTO) 9 % (0-12); NEUTROPHILS # (AUTO) 7.4 10^3/uL (1.8-7.8); NEUTROPHILS % (AUTO) 70 % (42-75); PLATELET COUNT 214 10^3/uL (130-400); WHITE BLOOD COUNT 10.6 10^3/uL (4.3-11.0)
[2021-12-18 20:39] LABS: PROTHROMBIN TIME PATIENT 13.5 SEC (12.2-14.7)
[2021-12-18 20:43] LABS: ALBUMIN 3.8 GM/DL (3.2-4.5); BILIRUBIN,TOTAL 0.4 MG/DL (0.1-1.0); CALCIUM 9.2 MG/DL (8.5-10.1); CREATININE SERUM 0.87 MG/DL (0.60-1.30); POTASSIUM 3.7 MMOL/L (3.6-5.0); TOTAL PROTEIN 7.6 GM/DL (6.4-8.2)
[2021-12-18 20:44] LABS: BILIRUBIN,URINE NEGATIVE (NEGATIVE); CLARITY,URINE CLOUDY; COLOR,URINE YELLOW; GLUCOSE, URINE (UA) NEGATIVE (NEGATIVE); KETONES,URINE NEGATIVE (NEGATIVE); LEUKOCYTE ESTERASE ,URINE 2+ (NEGATIVE); NITRITE,URINE POSITIVE (NEGATIVE); PROTEIN,URINE TRACE (NEGATIVE)
--- NOTE | 2021-12-18 20:56 | Diagnostic Imaging Report ---
EXAMINATION: CT head without contrast. TECHNIQUE: Multiple contiguous axial images were obtained through the brain without the use of intravenous contrast. All CT scans use one or more of the following dose optimizing techniques: automated exposure control, MA and/or KvP adjustment based on patient size and exam type or iterative reconstruction. HISTORY: Altered mental status COMPARISON: 09/30/2017 FINDINGS: Moderate diffuse cerebral volume loss with proportional enlargement of the ventricles and sulci. Moderate hypodensities throughout the supratentorial white matter posterior hemispheres. No acute intracranial hemorrhage or abnormal extra-axial fluid collections are present. Calcification of the intracranial ICAs. No hyperdense vessel. The calvarium is intact. The mastoid air cells are clear. There is fluid and mucosal thickening within the paranasal sinuses. Surgical changes from bilateral cataract repair. IMPRESSION: 1. No acute intracranial abnormality. 2. Chronic microangiopathy and volume loss. Dictated by: Dictated on workstation # [id number]
[2021-12-18 21:14] LABS: BACTERIA,URINE MODERATE /HPF; SQUAMOUS EPITHELIAL CELL,UR 25-50 /HPF
[2021-12-18 21:15] LABS: RBC,URINE 0-2 /HPF
[2021-12-18 21:16] LABS: AMORPHOUS SEDIMENT,UR FEW AMOR URATES /LPF
[2021-12-18] MEDS ORDERED: cefTRIAXone 1 GM PRE-MIX 50 ML IV ONE (21:30)
[2021-12-18] MEDS ORDERED: CEPH500T PO ×2 (22:42→22:48)
[2021-12-18 22:55] VITALS: BP 133/67
[2021-12-19 02:48] LABS: AMPHETAMINE SCREEN, URINE NEGATIVE (NEGATIVE); BARBITURATE SCREEN URINE NEGATIVE (NEGATIVE); BENZODIAZEPINES SCREEN URINE NEGATIVE (NEGATIVE); CANNABINOID SCREEN, URINE NEGATIVE (NEGATIVE); COCAINE SCREEN URINE NEGATIVE (NEGATIVE); METHADONE STAT NEGATIVE (NEGATIVE); METHAMPHETAMINE SCREEN URINE S NEGATIVE (NEGATIVE); OPIATE SCREEN URINE NEGATIVE (NEGATIVE); OXYCODONE STAT NEGATIVE (NEGATIVE); PROPOXYPHENE STAT NEGATIVE (NEGATIVE); TRICYCLIC ANTIDEPRESSANTS SCRE NEGATIVE (NEGATIVE)
== END 2021-12-18 22:54 | disposition home or self-care (01) ==
LOC: EDUNIT# 19:37 → ER 19:38
DX: R41.82 Altered mental status, unspecified (principal); G30.9 Alzheimer's disease, unspecified; F02.80 Dementia in other diseases classified elsewhere, unspecified severity, without behavioral disturbance, psychotic disturbance, mood disturbance, and anxiety; N39.0 Urinary tract infection, site not specified; F32.9 Major depressive disorder, single episode, unspecified; Z20.822 Contact with and (suspected) exposure to COVID-19; Z79.899 Other long term (current) drug therapy
CPT/HCPCS: 36415; 51702; 70450; 71045; 80053; 80306; 81000; 82947; 83605; 85025; 85610; 85730; 87040; 87077; 87088; 87186; 87636; 96374; 96375; 96376

== ENCOUNTER → 2021-12-22 | Outpatient (CLI) | payer MEDICARE, MEDICAID ==
[~2021-12-22] MED LIST changes: +CEPH500T PO
[2021-12-22 14:00] VITALS: BP 141/102
== END ==
LOC: SDC 15:13
PROVIDERS: ATTEND Family Medicine
DX: F33.9 Major depressive disorder, recurrent, unspecified (principal); K59.00 Constipation, unspecified; E87.6 Hypokalemia; G30.9 Alzheimer's disease, unspecified; R26.89 Other abnormalities of gait and mobility; R13.10 Dysphagia, unspecified; R52 Pain, unspecified; R26.81 Unsteadiness on feet; M62.81 Muscle weakness (generalized); R25.2 Cramp and spasm; R48.9 Unspecified symbolic dysfunctions; Z87.440 Personal history of urinary (tract) infections
CPT/HCPCS: 36569; 76937 ×2; C1751

== ENCOUNTER 2022-03-08 09:31 | Emergency (ER) | payer MEDICARE, MEDICAID ==
[~2022-03-08] VITALS: Ht 167 cm; Wt 68.0 kg
--- NOTE | 2022-03-08 09:58 | ED Fall/Injury ---
General Chief Complaint: Trauma-Non Activation Stated Complaint: FALL, L EYE LAC Nursing Triage Note: PT BROUGHT IN BY [facility] FROM [facility] WITH COMPLAINT OF FALL. PT WAS IN SHOWER CHAIR AND SHE FELL OUT OF CHAIR HITTING HEAD ON TILE. PT HAS LACERATION ABOUT LEFT EYE AND ABRAISION TO LEFT KNEE. PT HAS SEVERE ALZHEIMERS/DEMENITA. NON VERBAL. Source: patient Exam Limitations: no limitations History of Present Illness Date Seen by Provider: March 08, 2022 Time Seen by Provider: 09:51 Initial Comments Here by EMS after fall at [facility]. Apparently she was in her shower chair and fell forward hitting her head on the tile. She does have a laceration above the left eye. She is severe dementia Alzheimer's and is nonverbal. Unable to obtain further review of systems. No other obvious inj uries noted or reported. Unknown tetanus status. She does not appear to be on blood thinners. Occurred: this morning (Approximately 1 hour ago) Severity: moderate Injuries/Pain Location: face Loss of Consciousness: no loss of consciousness Allergies and Home Medications Allergies Coded Allergies: Penicillins (Verified Allergy, Unknown, 05/22/18) levofloxacin (Verified Allergy, Unknown, 05/22/18) Patient Home Medication List Home Medication List Reviewed: Yes Bisacodyl (Dulcolax) 10 Mg Supp.rect, 10 MG RC DAILY PRN for CONSTIPATION-4TH LINE, (Reported) Entered as Reported by: VAMSI MAN on 05/30/17 0910 Cephalexin (Cephalexin) 500 Mg Tablet, 500 MG PO TID Prescribed by: JERED WATERS on 12/18/21 2248 Clindamycin HCl (Clindamycin HCl) 150 Mg Capsule, 150 MG PO QID Prescribed by: BIBI ARCEO on 06/02/18 1628 Clotrimazole/Betamethasone Dip (Clotrimazole-Betamethasone Crm) 15 Gm Cream..g., TOP TID, (Reported) Entered as Reported by: VAMSI MAN on 05/30/17 0910 Hydrocodone/Acetaminophen (Hydrocodone/Acetaminophen 5 MG/325 MG TAB) 1 Each T ablet, 0.5 EACH PO Q4H PRN for PAIN Prescribed by: BIBI ARCEO on 06/02/18 1628 Menthol/Lanolin/Calamine/Znox (Calmoseptine Ointment) 71 Gm Oint, TP Q2H PRN for GAULDING, (Reported) Entered as Reported by: VAMSI MAN on 05/30/17 0921 Polyethylene Glycol 3350 (Miralax) 17 Gm Powd.pack, 17 GM PO EVERY OTHER DAY, (Reported) Entered as Reported by: YESICA BLACK on 05/22/18 0917 Potassium Chloride (Potassium Chloride) 20 Meq/15 Ml Liquid, 10 MEQ PO DAILY, (Reported) Entered as Reported by: VAMSI MAN on 05/24/17 0844 Sertraline HCl (Sertraline HCl) 100 Mg Tablet, 100 MG PO HS, (Reported) Entered as Reported by: YESICA BLACK on 05/22/18 0917 Tramadol HCl (Tramadol HCl) 50 Mg Tablet, 50 MG PO Q12H PRN for PAIN-MODERATE, (Reported) Entered as Reported by: VAMSI MAN on 05/30/17 0910 Review of Systems Review of Systems Constitutional: see HPI Skin: change in color, lesions Unable to complete review of systems due to patient's underlying medical condition with severe dementia and Alzheimer's. Patient is nonverbal. Past Nsfjhme-Gejgli-Gqvfma Hx Patient Social History Tobacco Use?: No Use of E-Cig and/or Vaping dev: No Substance use?: No Alcohol Use?: No Pt feels they are or have been: No Immunizations Up To Date First/Initial COVID19 Vaccinat: RECIEVED, UNKNOWN WHEN Second COVID19 Vaccination Slick: RECIEVED, UNKNOWN WHEN Third COVID19 Vaccination Date: RECIEVED, UNKNOWN WHEN Seasonal Allergies Seasonal Allergies: No Past Medical History Surgery/Hospitalization HX: ALZHEIMERS, MAJOR DEPRESSIVE DISORDER, DYSPHAGIA, UTI HX. HYPOKALEMIA Surgeries: Yes (Catatact sx) Eye Surgery, Gallbladder Respiratory: No Cardiac: Yes Neurological: Yes (Alzheimer's) Dementia Reproductive Disorders: No Sexually Transmitted Disease: No HIV/AIDS: No Gastrointestinal: Yes Chronic Constipation Musculoskeletal: No Endocrine: No HEENT: Yes Cataract Loss of Vision: Denies Hearing Impairment: Denies Cancer: No Psychosocial: Yes Depression Integumentary: No Blood Disorders: No Adverse Reaction/Blood Tranf: No Family Medical History Reviewed Nursing Family Hx Asthma 19 MOTHER FH: heart disease 19 MOTHER Physical Exam Vital Signs Vital Signs - First Documented 03/08/22 09:40 Pulse 84 Resp 16 B/P (MAP) 133/75 (94) Pulse Ox 96 O2 Delivery Room Air Capillary Refill : Height, Weight, BMI Height: 5'3.00" Weight: 116lbs. 9.0oz. 52.389446re; 24.00 BMI Method:Stated General Appearance: WD/WN, mild distress HEENT: PERRL/EOMI, pharynx normal Neck: No lymphadenopathy (R), No lymphadenopathy (L), No tender lateral, No tender midline; other (Nontender but c-collar remains in place) Cardiovascular: regular rate, rhythm, no murmur Respiratory: lungs clear, normal breath sounds Gastrointestinal: non tender, soft Extremities: normal range of motion, non-tender, pelvis stable Neurologic/Psychiatric: other (Awake but nonverbal. Does not answer questions. Does appear to move all 4 extremities. Appears to be at baseline per report.) Skin: warm/dry, other (3 cm laceration above the left brow with bleeding controlled.) Glascow coma scale done but not valid information as patient has underlying condition and appears to be at baseline. [place] Coma Score Best Eye Response: (4) Open Spontaneously Best Verbal Response: (1) No Verbal Response (Baseline) Best Motor Response: (5) Localizes to Pain (Baseline) Procedures/Interventions Wound Location: Face Other Wound Location Left brow Wound Length (cm): 3 Wound's Depth, Shape: linear, contused tissue Wound Explored: contaminated Irrigated w/ Saline (ccs): 100 Betadine Prep?: Yes Anesthesia: Lidocaine w/ Epi (LET) Number of Sutures: 4 Layer Closure?: 1 Number Deep Layer Sutures: 0 Progress Closed with willy with good approximation and bleeding controlled. Cover with antibiotic ointment and dressing. Tolerated procedure well with no complications. Progress/Results/Core Measures Results/Orders My Orders Orders - CHANDRIKA CHOI MD Dipht,Kay(Acell),Tet Adult (Boostrix (03/08/22 10:00) Let Solution (Let Solution) (03/08/22 10:00) Ct Head/Cervical Spine Wo (03/08/22 09:57) Medications Given in ED Current Medications Medications Dose Ordered Sig/Amy Route Start Time Stop Time Status Last Admin Dose Admin Diphtheria/ Tetanus/Acell Pertussis 0.5 ml ONCE ONCE IM 03/08/22 10:00 03/08/22 10:01 DC 03/08/22 10:17 0.5 ML Tetracaine/ Epinephrine/ Lidocaine 3 ml ONCE ONCE TOP 03/08/22 10:00 03/08/22 10:01 DC 03/08/22 10:16 3 ML Vital Signs/I&O 03/08/22 09:40 Pulse 84 Resp 16 B/P (MAP) 133/75 (94) Pulse Ox 96 O2 Delivery Room Air Blood Pressure Mean: 94 Progress Progress Note : Progress Note Seen and evaluated. CT head and C-spine ordered. LET applied to the wound on head. Tetanus updated. 1200: CT head and neck and results noted. I did discuss the case with Dr. Ovalle. He is only recommending antibiotics at this time. Not a surgical emergency at this point but he could follow-up if needed. Patient likely not surgical candidate due to her underlying severe advanced dementia. We will order outpatient antibiotic with azithromycin 500 mg daily for 5 days given her allergies. Wound was repaired with willy and covered with antibiotic ointment and dressing. Discharged back to nursing care facility with return precautions. Report given to nursing care facility by nursing. I have tried to contact family members and have left messages pending callback. Attempted contact with both [facility] Diagonstic Imaging: CT Plain Films/CT/US/NM/MRI: c-spine, head Comments [facility]. [place], [place] NAME: TRICIA COLLADO [facility] REC#: [id number] PT STATUS: REG ER : 1955 PHYSICIAN: CHANDRIKA CHOI MD ADMIT DATE: 03/08/22/ER Draft Date of Exam:03/08/22 CT HEAD/CERVICAL SPINE WO CLINICAL INDICATION: Patient is status post fall. Patient hit head on tile. Patient with laceration by left eye and abrasion of the left knee. EXAM: Head CT without IV contrast with sagittal and coronal reformations. Axial CT scan of the cervical spine with sagittal and coronal reformations. Auto Exposure Controls were utilized during the CT exam to meet ALARA standards for radiation dose reduction. COMPARISON: Head CT without contrast dated 12/26/2021. CT scan of the head and cervical spine dated 09/30/2017. FINDINGS: Head CT: There is no evidence of acute intracranial process. There is no intracranial hemorrhage. There is no brain herniation or midline shift. There is stable diffuse brain parenchymal volume loss including the temporal lobes. There is diffuse patchy and confluent low density seen throughout the white matter of both cerebral hemispheres suspected to represent chronic small vessel ischemic disease and leukoaraiosis. There is no hydrocephalus. Basal cisterns are unremarkable. There is a small amount of extracranial soft tissue swelling involving the left malar and left periorbital region. There is a small amount of soft tissue air in the region. There is no retrobulbar hematoma. Globes are intact. There is interval development of a displaced fracture of the lateral wall of the left orbit. There is comminuted slightly displaced fracture involving the anterior aspect of the left orbital wall and subtle fracture of the floor of the left orbit. Fracture is seen through the region of the left infraorbital canal. There is interval development of a comminuted fracture of the lateral wall of the left orbit superiorly and left frontal zygomatic suture. There is a displaced fracture of the lateral wall of the left maxillary sinus and comminuted displaced fracture of the posterior wall of the left maxillary sinus. There is a displaced comminuted fracture of the left zygomatic arch. There is no fracture extending through the base of the pterygoid. There is a moderate amount of fluid/blood in the left maxillary sinus. There is [id number] amount of fluid in the sphenoid sinus. There is minimal mucosal thickening involving the ethmoid sinus. Cervical Spine: There is no acute cervical spine fracture. Stable chronic compression deformity involving the C7 vertebra. There are degenerative spurs involving the cervical spine. There is no significant neck soft tissue abnormality. There is pleural-parenchymal thickening/scarring involving both lung apices. IMPRESSION: 1: There is no evidence of intracranial hemorrhage. 2: There is a left zygomaticomaxillary complex fracture which is described in detail above. There is comminution of the fractures involving the left maxillary sinus and left orbital wall. There are fractures involving the floor and lateral wall of the left orbit. 3: There is blood in the left maxillary sinus and sphenoid sinus. 4: There is no acute cervical spine fracture. 5: There is a stable chronic C7 cervical spine fracture. Dictated on workstation # [id number] Dict: 03/08/22 1051 Trans: 03/08/22 1111 [id number] Interpreted by: LYNNE JACKSON MD Electronically signed by: Departure Impression Primary Impression: Facial laceration Qualified Codes: S01.81XA - Laceration without foreign body of other part of head, initial encounter Additional Impressions: Fracture of left orbital wall Closed fracture of maxillary sinus Qualified Codes: S02.401A - Maxillary fracture, unspecified side, initial encounter for closed fracture Zygomatic fracture, left side, initial encounter for closed fracture Disposition: HOME, SELF-CARE Condition: Stable Departure-Patient Inst. Decision time for Depature: 11:51 Referrals: TRISH OVALLE MD, RICHARD A DO (PCP/Family) Primary Care Physician Patient Instructions: Laceration Repair With Willy (DC), Facial Fracture (DC) Add. Discharge Instructions: All discharge instructions reviewed with patient and/or family. Voiced understanding. Take medications as directed. You may follow-up with Dr. Ovalle if you are having complications with these fractures. You do have a fracture of the maxillary sinus on the left as well as orbital wall. If you are having problems with vision or movement of the eye, return to the emergency department for evaluation or follow-up with Dr. Ovalle. [place] out in 7 days. You may use ice packs to area of concern 20 minutes/h as needed over the next 1 to 2 days. Continue other home medications as directed. Protect patient from falls. Return for increased pain, weakness, fever or other concerns as needed. Scripts Azithromycin (Azithromycin) 500 Mg Tablet 500 MG PO DAILY for 5 Days, #5 TAB 0 Refills Prov: CHANDRIKA CHOI MD 03/08/22 CHANDRIKA CHOI MD March 08, 2022 09:58
[2022-03-08] MEDS ORDERED: TETANUS,DIPTH,PERTUSS P/F (BOOSTRIX) 0.5 ML VIAL IM ONE (10:00)
[2022-03-08] MEDS ORDERED: L.E.T. SOLUTION 3 ML SYR TOP ONE (10:00)
--- NOTE | 2022-03-08 11:11 | Diagnostic Imaging Report ---
CLINICAL INDICATION: Patient is status post fall. Patient hit head on tile. Patient with laceration by left eye and abrasion of the left knee. EXAM: Head CT without IV contrast with sagittal and coronal reformations. Axial CT scan of the cervical spine with sagittal and coronal reformations. Auto Exposure Controls were utilized during the CT exam to meet ALARA standards for radiation dose reduction. COMPARISON: Head CT without contrast dated 12/26/2021. CT scan of the head and cervical spine dated 09/30/2017. FINDINGS: Head CT: There is no evidence of acute intracranial process. There is no intracranial hemorrhage. There is no brain herniation or midline shift. There is stable diffuse brain parenchymal volume loss including the temporal lobes. There is diffuse patchy and confluent low density seen throughout the white matter of both cerebral hemispheres suspected to represent chronic small vessel ischemic disease and leukoaraiosis. There is no hydrocephalus. Basal cisterns are unremarkable. There is a small amount of extracranial soft tissue swelling involving the left malar and left periorbital region. There is a small amount of soft tissue air in the region. There is no retrobulbar hematoma. Globes are intact. There is interval development of a displaced fracture of the lateral wall of the left orbit. There is comminuted slightly displaced fracture involving the anterior aspect of the left orbital wall and subtle fracture of the floor of the left orbit. Fracture is seen through the region of the left infraorbital canal. There is interval development of a comminuted fracture of the lateral wall of the left orbit superiorly and left frontal zygomatic suture. There is a displaced fracture of the lateral wall of the left maxillary sinus and comminuted displaced fracture of the posterior wall of the left maxillary sinus. There is a displaced comminuted fracture of the left zygomatic arch. There is no fracture extending through the base of the pterygoid. There is a moderate amount of fluid/blood in the left maxillary sinus. There is buhgqqpf-xa-rxpuz amount of fluid in the sphenoid sinus. There is minimal mucosal thickening involving the ethmoid sinus. Cervical Spine: There is no acute cervical spine fracture. Stable chronic compression deformity involving the C7 vertebra. There are degenerative spurs involving the cervical spine. There is no significant neck soft tissue abnormality. There is pleural-parenchymal thickening/scarring involving both lung apices. IMPRESSION: 1: There is no evidence of intracranial hemorrhage. 2: There is a left zygomaticomaxillary complex fracture which is described in detail above. There is comminution of the fractures involving the left maxillary sinus and left orbital wall. There are fractures involving the floor and lateral wall of the left orbit. 3: There is blood in the left maxillary sinus and sphenoid sinus. 4: There is no acute cervical spine fracture. 5: There is a stable chronic C7 cervical spine fracture. Dictated by: Dictated on workstation # [id number]
[2022-03-08] MEDS ORDERED: AZIT500T9 PO (12:04)
[2022-03-08 13:34] VITALS: BP 125/74
== END 2022-03-08 13:34 | disposition home or self-care (01) ==
LOC: EDUNIT# 09:31 → ER 09:40
DX: S02.842A Fracture of lateral orbital wall, left side, initial encounter for closed fracture (principal); S02.32XA Fracture of orbital floor, left side, initial encounter for closed fracture; S02.40DA Maxillary fracture, left side, initial encounter for closed fracture; S02.40FA Zygomatic fracture, left side, initial encounter for closed fracture; G30.9 Alzheimer's disease, unspecified; F02.80 Dementia in other diseases classified elsewhere, unspecified severity, without behavioral disturbance, psychotic disturbance, mood disturbance, and anxiety; Z23 Encounter for immunization; W07.XXXA Fall from chair, initial encounter; Y92.121 Bathroom in nursing home as the place of occurrence of the external cause
CPT/HCPCS: 70450; 72125; 90715

== ENCOUNTER 2022-10-31 10:32 | Emergency (ER) | payer MEDICARE, MEDICAID ==
[~2022-10-31 10:32] MED LIST changes: +AZIT500T9 PO
[2022-10-31 10:48] VITALS: BP 120/50
[2022-10-31] MEDS ORDERED: NS IV 1000 ML 1,000 ML IV SCH (11:30)
[2022-10-31 11:38] LABS: BILIRUBIN,URINE NEGATIVE (NEGATIVE); CLARITY,URINE CLEAR; COLOR,URINE YELLOW; GLUCOSE, URINE (UA) NEGATIVE (NEGATIVE); KETONES,URINE NEGATIVE (NEGATIVE); LEUKOCYTE ESTERASE ,URINE TRACE (NEGATIVE); NITRITE,URINE NEGATIVE (NEGATIVE); PH,URINE 5.5 (5-9); PROTEIN,URINE TRACE (NEGATIVE)
[2022-10-31 12:01] LABS: BACTERIA,URINE FEW /HPF; RBC,URINE RARE /HPF
[2022-10-31 12:02] LABS: AMORPHOUS SEDIMENT,UR LARGE AMOR URATES /LPF
--- NOTE | 2022-10-31 13:05 | Diagnostic Imaging Report ---
INDICATION: Altered mental status. AP view of chest is obtained with comparison made study of 12/18/2021 FINDINGS: Heart size and pulmonary vascularity are within normal limits. There is mild basilar atelectasis and/or pneumonitis. There is no consolidation or significant pleural fluid. IMPRESSION: Mild basilar atelectasis and/or pneumonitis without other evidence of acute abnormality. There is prominence of the ascending thoracic aorta which can be related to long-term systemic hypertension or aortic stenosis. Dictated by: Dictated on workstation # [id number]
--- NOTE | 2022-10-31 13:43 | ED General ---
General Chief Complaint: General Problems/Pain Stated Complaint: NO APPETITE | MOUTH SORES | Nursing Triage Note: PT TO FT 2 WITH WORKER FROM [facility] WITH C/O SORES IN MOUTH AND DECREASED INTAKE AND OUTPUT X1 WEEK. FACILITY CALLED DR JOHNSON AND HE ORDERED TO GO TO ER FOR EVAL Source of Information: Caregiver (from correction) Exam Limitations: Physical Impairments History of Present Illness Date Seen by Provider: Oct 31, 2022 Time Seen by Provider: 11:15 Initial Comments Patient is a 67-year-old female who is at baseline nonverbal at a local correction, history of severe dementia brought to the emergency department by caregiver at the correction with complaint of not eating or drinking for a week. Caregiver has not taken care of her routinely over the last week and has limited details of the clinical picture. She is not sure the last time she had urine output or bowel movement. She noticed that she did not eat this morning or last night for sure. Patient is chronically ill-appearing. Mouth breathing, pinpoint pupils with rapid shallow respirations approaching 40 breaths a minute. Occasional coarse wet cough. Does not respond to painful stimuli. Does not appear to have flaccid hemiparesis, on initial presentation she is sitting somewhat slumped in a wheelchair. Timing/Duration: Other (1 week) Allergies and Home Medications Allergies Coded Allergies: Penicillins (Verified Allergy, Unknown, 05/22/18) levofloxacin (Verified Allergy, Unknown, 05/22/18) Patient Home Medication List Home Medication List Reviewed: Yes Azithromycin (Azithromycin) 500 Mg Tablet, 500 MG PO DAILY Prescribed by: CHANDRIKA CHOI on 03/08/22 1204 Bisacodyl (Dulcolax) 10 Mg Supp.rect, 10 MG RC DAILY PRN for CONSTIPATION-4TH LINE, (Reported) Entered as Reported by: VAMSI MAN on 05/30/17 0910 Cephalexin (Cephalexin) 500 Mg Tablet, 500 MG PO TID Prescribed by: JERED WATERS on 12/18/21 2248 Clindamycin HCl (Clindamycin HCl) 150 Mg Capsule, 150 MG PO QID Prescribed by: BIBI ARCEO on 06/02/18 1628 Clotrimazole/Betamethasone Dip (Clotrimazole-Betamethasone Crm) 15 Gm Cream..g., TOP TID, (Reported) Entered as Reported by: VAMSI MAN on 05/30/17 0910 Hydrocodone/Acetaminophen (Hydrocodone/Acetaminophen 5 MG/325 MG TAB) 1 Each Tablet, 0.5 EACH PO Q4H PRN for PAIN Prescribed by: BIBI ARCEO on 06/02/18 1628 Menthol/Lanolin/Calamine/Znox (Calmoseptine Ointment) 71 Gm Oint, TP Q2H PRN for GAULDING, (Reported) Entered as Reported by: VAMSI MAN on 05/30/17 0921 Polyethylene Glycol 3350 (Miralax) 17 Gm Powd.pack, 17 GM PO EVERY OTHER DAY, (Reported) Entered as Reported by: YESICA BLACK on 05/22/18 09 Potassium Chloride (Potassium Chloride) 20 Meq/15 Ml Liquid, 10 MEQ PO DAILY, (Reported) Entered as Reported by: VAMSI MAN on 05/24/17 0844 Sertraline HCl (Sertraline HCl) 100 Mg Tablet, 100 MG PO HS, (Reported) Entered as Reported by: YESICA BLACK on 05/22/18 0917 Tramadol HCl (Tramadol HCl) 50 Mg Tablet, 50 MG PO Q12H PRN for PAIN-MODERATE, (Reported) Entered as Reported by: VAMSI MAN on 05/30/17 0910 Review of Systems Review of Systems Constitutional: see HPI unable to obtain due to clinical condition Past Mjpqawl-Wtcfyc-Gvllfw Hx Patient Social History Tobacco Use?: No Use of E-Cig and/or Vaping dev: No Substance use?: No Alcohol Use?: No Pt feels they are or have been: No Immunizations Up To Date Influenza Vaccine Up-to-Date: Yes; Up-to-Date First/Initial COVID19 Vaccinat: RECIEVED, UNKNOWN WHEN Second COVID19 Vaccination Slick: RECIEVED, UNKNOWN WHEN Third COVID19 Vaccination Date: RECIEVED, UNKNOWN WHEN Seasonal Allergies Seasonal Allergies: No Past Medical History Surgery/Hospitalization HX: ALZHEIMERS, MAJOR DEPRESSIVE DISORDER, DYSPHAGIA, UTI HX. HYPOKALEMIA Surgeries: Yes (Catatact sx) Eye Surgery, Gallbladder Respiratory: No Cardiac: Yes Neurological: Yes (Alzheimer's) Dementia Reproductive Disorders: No Sexually Transmitted Disease: No HIV/AIDS: No Gastrointestinal: Yes Chronic Constipation Musculoskeletal: No Endocrine: No HEENT: Yes Cataract Loss of Vision: Denies Hearing Impairment: Denies Cancer: No Psychosocial: Yes Depression Integumentary: No Blood Disorders: No Adverse Reaction/Blood Tranf: No Family Medical History Asthma 19 MOTHER FH: heart disease 19 MOTHER Physical Exam Vital Signs Vital Signs - First Documented 10/31/22 10:48 Temp 36.4 Pulse 106 Resp 30 B/P (MAP) 120/50 (73) Capillary Refill : Height, Weight, BMI Height: 5'3.00" Weight: 116lbs. 9.0oz. 52.323456pn; 24.00 BMI Method:Stated General Appearance: Chronically ill Eyes: Bilateral Eye Normal Inspection, Bilateral Eye PERRL, Bilateral Eye EOMI HEENT: Other (pinpoint pupils; very dry oral mucosa) Neck: Normal Inspection Respiratory: Other (tachypnea) Cardiovascular: Regular Rate, Rhythm (90's), Normal Peripheral Pulses (1+ radial bilaterally) Gastrointestinal: Soft; No Distended Extremity: No Pedal Edema, Other (contractured LE bilaterally; ) Neurologic/Psychiatric: Other (poor responsiveness; eyes intermittently open briefly; non verbal (baseline); does not withdraw or localize painful stimuli) Skin: Normal Color (slightly pale), Warm/Dry Focused Exam Lactate Level 10/31/22 13:35: Lactic Acid Level 4.23*H Lactic Acid Level Laboratory Tests Test 10/31/22 13:35 Lactic Acid Level 4.23 MMOL/L (0.50-2.00) *H Progress/Results/Core Measures Suspected Sepsis SIRS Temperature: Pulse: 106 Respiratory Rate: 30 Laboratory Tests 10/31/22 13:35: White Blood Count 25.8H Blood Pressure 120 /50 Mean: 73 10/31/22 13:35: Lactic Acid Level 4.23*H Laboratory Tests 10/31/22 00:00: 10/31/22 13:35: Creatinine 2.59H, Platelet Count 250, Total Bilirubin 0.5 Results/Orders Lab Results Laboratory Tests Test 10/31/22 00:00 10/31/22 11:25 10/31/22 13:35 Range/Units Urine Color YELLOW Urine Clarity CLEAR Urine pH 5.5 5-9 Urine Specific [place] >=1.030 1.016-1.022 Urine Protein TRACE H NEGATIVE Urine Glucose (UA) NEGATIVE NEGATIVE Urine Ketones NEGATIVE NEGATIVE Urine Nitrite NEGATIVE NEGATIVE Urine Bilirubin NEGATIVE NEGATIVE Urine Urobilinogen 1.0 < = 1.0 MG/DL Urine Leukocyte Esterase TRACE H NEGATIVE Urine RBC (Auto) NEGATIVE NEGATIVE Urine RBC RARE /HPF Urine WBC 2-5 /HPF Urine Squamous Epithelial Cells NONE /HPF Urine Crystals PRESENT H /LPF Urine Amorphous Sediment LARGE LATHA URATES H /LPF Urine Bacteria FEW H /HPF Urine Casts NONE /LPF Urine Mucus NEGATIVE /LPF Urine Culture Indicated CULTURE PENDING White Blood Count 25.8 H 4.3-11.0 10^3/uL Red Blood Count 4.96 3.80-5.11 10^6/uL Hemoglobin 16.6 H 11.5-16.0 g/dL Hematocrit 56 H 35-52 % Mean Corpuscular Volume 114 H 80-99 fL Mean Corpuscular Hemoglobin 34 25-34 pg Mean Corpuscular Hemoglobin Concent 29 L 32-36 g/dL Red Cell Distribution Width 13.8 10.0-14.5 % Platelet Count 250 130-400 10^3/uL Mean Platelet Volume 14.3 H 9.0-12.2 fL Immature Granulocyte % (Auto) 1 % Neutrophils (%) (Auto) 91 H 42-75 % Lymphocytes (%) (Auto) 4 L 12-44 % Monocytes (%) (Auto) 4 0-12 % Eosinophils (%) (Auto) 0 0-10 % Basophils (%) (Auto) 0 0-10 % Neutrophils # (Auto) 23.4 H 1.8-7.8 10^3/uL Lymphocytes # (Auto) 1.1 1.0-4.0 10^3/uL Monocytes # (Auto) 1.0 0.0-1.0 10^3/uL Eosinophils # (Auto) 0.0 0.0-0.3 10^3/uL Basophils # (Auto) 0.1 0.0-0.1 10^3/uL Immature Granulocyte # (Auto) 0.1 0.0-0.1 10^3/uL Neutrophils % (Manual) 85 % Lymphocytes % (Manual) 6 % Monocytes % (Manual) 5 % Band Neutrophils 4 % Percent Immature Platelet Fraction 12.1 H 0.0-7.6 % Macrocytosis MODERATE Sodium Level 173 *H 135-145 MMOL/L Potassium Level 4.5 3.6-5.0 MMOL/L Chloride Level 134 H 98-107 MMOL/L Carbon Dioxide Level 24 21-32 MMOL/L Anion Gap 15 H 5-14 MMOL/L Blood Urea Nitrogen 65 H 7-18 MG/DL Creatinine 2.59 H 0.60-1.30 MG/DL Estimat Glomerular Filtration Rate 19 BUN/Creatinine Ratio 25 Glucose Level 210 H 70-105 MG/DL Lactic Acid Level 4.23 *H 0.50-2.00 MMOL/L Calcium Level 9.6 8.5-10.1 MG/DL Corrected Calcium 9.8 8.5-10.1 MG/DL Total Bilirubin 0.5 0.1-1.0 MG/DL Aspartate Amino Transf (AST/SGOT) 14 5-34 U/L Alanine Aminotransferase (ALT/SGPT) 22 0-55 U/L Alkaline Phosphatase 145 H 40-136 U/L Total Protein 8.2 6.4-8.2 GM/DL Albumin 3.7 3.2-4.5 GM/DL My Orders Orders - JERED WATERS MD Cbc With Automated Diff (10/31/22 11:27) Comprehensive Metabolic Panel (10/31/22 11:27) Blood Culture (10/31/22 11:27) Sputum Culture (10/31/22 11:27) Urinalysis (10/31/22 11:27) Urine Culture (10/31/22 11:27) Protime With Inr (10/31/22 11:27) Partial Thromboplastin Time (10/31/22 11:27) Chest 1 View, Ap/Pa Only (10/31/22 11:27) Ed Iv/Invasive Line Start (10/31/22 11:27) Ed Iv/Invasive Line Start (10/31/22 11:27) Vital Signs Adult Sepsis Patie Q15M (10/31/22 11:27) O2 (10/31/22 11:27) Remove Rings In Anticipation O (10/31/22 11:27) Lactic Acid Analyzer (10/31/22 11:27) Ct Head Wo (10/31/22 11:27) Ns Iv 1000 Ml (Sodium Chloride 0.9%) (10/31/22 11:30) Manual Differential (10/31/22 13:35) Vital Signs/I&O 10/31/22 10:48 Temp 36.4 Pulse 106 Resp 30 B/P (MAP) 120/50 (73) Capillary Refill : Blood Pressure Mean: 73 Progress Note #1: Time: 14:15 Progress Note Multiple attempts at peripheral IV access by nursing with and without ultrasound assistance. Unsuccessful. Phlebotomy was also unable to get blood samples. I ultimately did a right femoral vein stick to get blood for analysis. Her CT head (due to AMS, pinpoint pupils) was negative for acute intracranial process; CXR neg; UA neg for infection. Basic labs coming back extremely abnormal, with serum sodium 170's; leukocytosis. Patient is profoundly dehydrated. Would need a central line for fluids/rehydration. Patient's nurse, Flora - spoke with her . He is going to come to the ER so we can discuss plan of care with him. Patient would be a good candidate for hospice at this point, secondary to her general debility, nonverbal state and total dependance and current level of severe illness. Progress Note #2: Time: 15:30 Progress Note Long discussion with Tricia's about aggressive management of her hypernatremia and acute renal failure versus more comfort/end-of-life/hospice care. He states that he has made peace with her medical condition and believes that comfort care would be the best option. He would like her sent back to [facility], [place], operated by [facility] and rehab. He does not have a preference on hospice facilities. I advised that it would probably not take very long before she . We are going to call our palliative care nurse and have her help facilitate hospice care at [facility] [place], operated by [facility] and rehab. Patient will ultimately be discharged back to the correction. Diagnostic Imaging Diagonstic Imaging: CT [facility] [place] [place] NAME: TRICIA YANEZ [facility] REC#: [id number] PT STATUS: REG ER : 1955 PHYSICIAN: JERED WATERS MD ADMIT DATE: 10/31/22/ER Draft Date of Exam:10/31/22 CT HEAD WO INDICATION: Altered mental status. TECHNIQUE: Routine non contrast-enhanced axial images were obtained from the skull base to the vertex. Auto Exposure Controls were utilized during the CT exam to meet ALARA standards for radiation dose reduction COMPARISON: 03/08/2022. FINDINGS: The ventricles and cortical sulci are diffusely prominent, compatible with age-related volume loss. There are confluent areas of abnormal, low attenuation in the periventricular white matter. This is consistent with chronic small vessel ischemic changes. There is no midline shift or mass-effect. No acute intra-axial hemorrhage is seen. There are no abnormal areas of increased or decreased density to suggest acute hemorrhage or edema. No extra-axial masses or collections are present. The bony calvarium is intact. The visualized paranasal sinuses show debris within the bilateral sphenoid sinuses. The mastoid air cells are clear. IMPRESSION: 1. No acute intracranial abnormality. No CT evidence of mass, acute infarct or intracranial hemorrhage. 2. Chronic small vessel ischemic changes in the deep white matter. 3. Paranasal sinus disease. Please correlate for acute sinusitis. Dictated on workstation # [id number] Dict: 10/31/22 1356 Trans: 10/31/22 1404 [id number] Interpreted by: MELANIE DUCKWORTH MD Electronically signed by: Diagonstic Imaging: Xray Plain Films/CT/US/NM/MRI: chest Comments [facility] [place], [place] NAME: TRICIA YANEZ [facility] REC#: [id number] PT STATUS: REG ER : 1955 PHYSICIAN: JERED WATERS MD ADMIT DATE: 10/31/22/ER Draft Date of Exam:10/31/22 CHEST 1 VIEW, AP/PA ONLY INDICATION: Altered mental status. AP view of chest is obtained with comparison made study of 12/18/2021 FINDINGS: Heart size and pulmonary vascularity are within normal limits. There is mild basilar atelectasis and/or pneumonitis. There is no consolidation or significant pleural fluid. IMPRESSION: Mild basilar atelectasis and/or pneumonitis without other evidence of acute abnormality. There is prominence of the ascending thoracic aorta which can be related to long-term systemic hypertension or aortic stenosis. Dictated on workstation # [id number] Dict: 10/31/22 1300 Trans: 10/31/22 1305 [id number] Interpreted by: JAY SANDHU MD Electronically signed by: Departure Impression Primary Impression: Altered mental status Qualified Codes: R41.82 - Altered mental status, unspecified Additional Impressions: Hypernatremia Dehydration Alzheimer's dementia Qualified Codes: G30.9 - Alzheimer's disease, unspecified; F02.C0 - Dementia in other diseases classified elsewhere, severe, without behavioral disturbance, psychotic disturbance, mood disturbance, and anxiety Acute renal failure Qualified Codes: N17.9 - Acute kidney failure, unspecified Disposition: 01 HOME, SELF-CARE Condition: Critical Departure-Patient Inst. Decision time for Depature: 15:32 Referrals: RHONDA JOHNSON DO (PCP/Family) Primary Care Physician Patient Instructions: Palliative Care Add. Discharge Instructions: We have contacted the palliative care nurse here at [facility] for assistance with coordinating hospice care and return to [facility]. If you have any emergent concerns please feel free to reach out to ER staff with any questions or concerns. Copy Copies To 1: RHONDA JOHNSON KATHRYN M MD Oct 31, 2022 13:43
[2022-10-31 13:46] LABS: BASOPHILS # (AUTO) 0.1 10^3/uL (0.0-0.1); BASOPHILS % (AUTO) 0 % (0-10); EOSINOPHILS % (AUTO) 0 % (0-10); HEMOGLOBIN 16.6 g/dL (11.5-16.0)
[2022-10-31 13:48] LABS: HEMATOCRIT 56 % (35-52); LYMPHOCYTES # (AUTO) 1.1 10^3/uL (1.0-4.0); LYMPHOCYTES % (AUTO) 4 % (12-44); MEAN CORPUSCULAR HEMOGLOBIN 34 pg (25-34); MEAN CORPUSCULAR HGB CONC 29 g/dL (32-36); MEAN CORPUSCULAR VOLUME 114 fL (80-99); MEAN PLATELET VOLUME 14.3 fL (9.0-12.2); MONOCYTES % (AUTO) 4 % (0-12); NEUTROPHILS # (AUTO) 23.4 10^3/uL (1.8-7.8); NEUTROPHILS % (AUTO) 91 % (42-75); PLATELET COUNT 250 10^3/uL (130-400); WHITE BLOOD COUNT 25.8 10^3/uL (4.3-11.0)
[2022-10-31 13:55] LABS: ALBUMIN 3.7 GM/DL (3.2-4.5); POTASSIUM 4.5 MMOL/L (3.6-5.0)
[2022-10-31 13:56] LABS: CALCIUM 9.6 MG/DL (8.5-10.1)
[2022-10-31 13:57] LABS: TOTAL PROTEIN 8.2 GM/DL (6.4-8.2)
[2022-10-31 13:59] LABS: BILIRUBIN,TOTAL 0.5 MG/DL (0.1-1.0)
[2022-10-31 14:01] LABS: CREATININE SERUM 2.59 MG/DL (0.60-1.30)
--- NOTE | 2022-10-31 14:05 | Diagnostic Imaging Report ---
INDICATION: Altered mental status. TECHNIQUE: Routine non contrast-enhanced axial images were obtained from the skull base to the vertex. Auto Exposure Controls were utilized during the CT exam to meet ALARA standards for radiation dose reduction COMPARISON: 03/08/2022. FINDINGS: The ventricles and cortical sulci are diffusely prominent, compatible with age-related volume loss. There are confluent areas of abnormal, low attenuation in the periventricular white matter. This is consistent with chronic small vessel ischemic changes. There is no midline shift or mass-effect. No acute intra-axial hemorrhage is seen. There are no abnormal areas of increased or decreased density to suggest acute hemorrhage or edema. No extra-axial masses or collections are present. The bony calvarium is intact. The visualized paranasal sinuses show debris within the bilateral sphenoid sinuses. The mastoid air cells are clear. IMPRESSION: 1. No acute intracranial abnormality. No CT evidence of mass, acute infarct or intracranial hemorrhage. 2. Chronic small vessel ischemic changes in the deep white matter. 3. Paranasal sinus disease. Please correlate for acute sinusitis. Dictated by: Dictated on workstation # [id number]
[2022-10-31 14:08] LABS: BAND NEUTROPHILS 4 %; LYMPHOCYTES % (MANUAL) 6 %; MONOCYTES % (MANUAL) 5 %; NEUTROPHILS % (MANUAL) 85 %
== END 2022-10-31 17:24 | disposition home or self-care (01) ==
LOC: EDUNIT# 10:32 → ER 10:34
DX: R41.82 Altered mental status, unspecified (principal); G30.9 Alzheimer's disease, unspecified; F02.80 Dementia in other diseases classified elsewhere, unspecified severity, without behavioral disturbance, psychotic disturbance, mood disturbance, and anxiety; E87.1 Hypo-osmolality and hyponatremia; E86.0 Dehydration; N17.9 Acute kidney failure, unspecified
CPT/HCPCS: 36415; 70450; 71045; 80053; 81000; 83605; 85007; 85027; 87040; 87077; 87088; 87186